=== PATIENT | female | born 1940 | race Caucasian/White ===

== ENCOUNTER → 2019-12-21 14:29 | Outpatient (CLI) | payer MEDICARE, OTHER, SELFPAY ==
--- NOTE | ~2019-12-21 | XR_ITS ---
XR chest 2V DATE: 12/21/2019 15:09 INDICATION: Cough TECHNIQUE: PA and lateral views COMPARISON: 08/06/2014 PA and lateral views of chest FINDINGS: Normal heart size. No hilar or mediastinal enlargement. No pulmonary infiltrate or consolid ation, pleural effusion or pulmonary vascular congestion or pneumothorax. Diffuse osteopenia. There is scoliosis and degenerative change of the thoracolumbar spine. There are prominent osteoarthritic changes at the glenohumeral joints. IMPRESSION: No active cardiopulmonary disease Reviewed, dictated and finalized at location B.
== END ==
PROVIDERS: PCP Family Medicine; Visit Provider Family Medicine
DX: R05 Cough (principal)
CPT/HCPCS: 71046

== ENCOUNTER 2019-12-22 11:09 | Outpatient (NON) | payer MEDICARE, OTHER, SELFPAY ==
[2019-12-23 00:01] LABS: SARS-CoV-2 RNA PCR Negative
== END 2019-12-22 11:10 ==
PROVIDERS: Visit Provider Nurse Practitioner Adult Health
DX: R05 Cough (principal); Z20.828 Contact with and (suspected) exposure to other viral communicable diseases
CPT/HCPCS: 87635; C9803; U0003

== ENCOUNTER 2020-06-21 09:49 | Outpatient (CLI) | payer MEDICARE, OTHER, SELFPAY ==
--- NOTE | ~2020-06-21 | MM_ITS ---
EXAMINATION: MM screening [facility] BI w luther HISTORY: Screening mammogram TECHNIQUE: Craniocaudal and mediolateral oblique 3-D tomosynthesis images were obtained and synthetic 2-D images were generated. CAD analysis was submitted and interpreted. COMPARISON: 06/21/2019, 06/04/2018, 06/01/2017 bilateral digital screening mammogram examinations BREAST PARENCHYMAL COMPOSITION: There are scattered areas of fibroglandular density. FINDINGS: Occasional bilateral benign calcifications. There is no evidence of suspicious mass, calcif ication, or architectural distortion to suggest malignancy in either breast. There has been no suspic ious interval change. IMPRESSION: 1. No mammographic evidence of malignancy. 2. Recommend routine screening mammography in one year. BI-RADS Category 1: Negative Reviewed, dictated and finalized at location A. WAY HOUSE COUNSELOR
== END 2020-06-21 09:50 | disposition home or self-care (01) ==
LOC: ANHIMG 09:52
PROVIDERS: PCP Nurse Practitioner Adult Health; Visit Provider Nurse Practitioner Adult Health
DX: Z12.31 Encounter for screening mammogram for malignant neoplasm of breast (principal)
CPT/HCPCS: 77063; 77067

== ENCOUNTER 2021-02-22 00:39 | Day surgery (SDC) | payer MEDICARE, OTHER, SELFPAY ==
[2021-02-14 10:14] VITALS: BMI 37.0
[2021-02-22 10:04] VITALS: BP 143/58; PULSE 61; RESP 16; TEMP 36.2; O2SAT 96
[2021-02-22] MEDS: LACTATED RINGERS 1,000 ML 150 ML IV CONT (10:07)
--- NOTE | 2021-02-22 10:20 | WPDANESEPPF ---
Anes - Initial Pre Proc Eval Procedure: Operation Date: 02/22/21 11:00 Proposed Procedures p Esophagogastroduodenoscopy - Gio Campbell MD Date/Time: 02/22/21 10:20 Surgeon: Gio Campbell MD Pre Op Diagnosis: epigastric pain, dyspepsia Patient Data Age: 81 Gender: F Height: 1.63 m Weight: 100.9 kg Last Vital Signs Temp 36.2 C L 02/22/21 10:04 Pulse 61 02/22/21 10:04 Resp 16 02/22/21 10:04 BP 143/58 H 02/22/21 10:04 Pulse Ox 96 02/22/21 10:04 Allergies Allergy/AdvReac Type Severity Reaction Status Date / Time levofloxacin [From Levaquin] Allergy Intermediate Unknown Verified 02/22/21 10:03 ADHESIVE TAPE Allergy Severe BLISTERS Uncoded 02/22/21 10:03 Home Medications Medication Instructions Recorded Confirmed Type aspirin 81 mg tablet,delayed 81 mg PO DAILY 04/27/20 02/22/21 History release diclofenac sodium 1 % topical gel 2 g TOPICAL QID PRN 04/27/20 02/22/21 History lisinopril 20 mg tablet 20 mg PO DAILY 04/27/20 02/22/21 History calcitriol 0.25 mcg capsule 0.25 mcg PO DAILY 02/07/21 02/22/21 History hydrochlorothiazide 12.5 mg tablet 12.5 mg PO DAILY 02/07/21 02/22/21 History levothyroxine 100 mcg tablet 100 mcg PO DAILY 02/07/21 02/22/21 History meloxicam 15 mg tablet 15 mg PO DAILY 02/07/21 02/22/21 History rosuvastatin 5 mg tablet 5 mg PO DAILY 02/07/21 02/22/21 History biotin 1 mg PO DAILY 02/14/21 02/22/21 History elderberry fruit [Elderberry] 200 mg PO DAILY 02/14/21 02/22/21 History Patient hx anesthesia problems: none Family hx anesthesia problems: none PMFSH Past Medical History Medical History (Updated 02/22/21 @ 10:22 by Naseem Machado MD) Anemia CAD (coronary artery disease) HTN (hypertension) Hyperlipidemia Surgical History Surgical History (Updated 02/22/21 @ 10:22 by Naseem Machado MD) History of coronary artery stent placement Family History Family History Other Cerebrovascular accident Family history of arthritis Family history of malignant neoplasm Hypertension Social History Social History Smoking packs per day: 1 Smoking cigarettes per day: 20.0 Years smoked: 45 Smoking pack-years: 45.00 Smoking status: Former smoker Tobacco type: cigarettes Second hand tobacco smoke exposure: No Smoking end date: 06/03/79 Alcohol intake: never Substance use: never Substance use type: does not use Living arrangements: with family Spiritual care concerns: No Anes - Eval Final PreProcedure Day of Procedure 02/22/21 10:20 Patient weight: obese Heart: regular rate and rhythm Lungs: clear to auscultation and normal air movement Airway: Mallampati scale class II Neurological: alert and oriented Last oral intake: >/= 8 hours ASA classification: III Emergent: no Anesthetic plan: proceed Anesthesia type and monitoring: general GIVS Informed Consent: The patient's anesthetic plan and its attendant risks and benefits were discussed with the patient/family/POA. Questions were solicited and answers provided to the satisfaction of the patient/family/POA.
--- NOTE | 2021-02-22 10:31 | PM.HPGS ---
History of Present Illness History of Present Illness Consent: Risks, benefits, and alternatives have been discussed and questions answered. Patient agrees to proceed with procedure. Chief complaint: epigastric pain, dyspepsia Narrative: Gunjan Diaz is a 81 year old female With troubled by a great deal of belching and chest tightness. She has tried taking antacids which gave her temporary relief Review of Systems Review of Systems: All systems reviewed & are unremarkable except as noted in HPI and below PMFSH Past Medical History Medical History Anemia CAD (coronary artery disease) HTN (hypertension) Hyperlipidemia Surgical History Surgical History History of coronary artery stent placement Family History Family History Other Cerebrovascular accident Family history of arthritis Family history of malignant neoplasm Hypertension Social History Social History Smoking packs per day: 1 Smoking cigarettes per day: 20.0 Years smoked: 45 Smoking pack-years: 45.00 Smoking status: Former smoker Tobacco type: cigarettes Second hand tobacco smoke exposure: No Smoking end date: 06/03/79 Alcohol intake: never Substance use: never Substance use type: does not use Living arrangements: with family Spiritual care concerns: No Meds Home Medications and Allergies Home Medications Medication Instructions Recorded Confirmed Type aspirin 81 mg tablet,delayed 81 mg PO DAILY 04/27/20 02/22/21 History release diclofenac sodium 1 % topical gel 2 g TOPICAL QID PRN 04/27/20 02/22/21 History lisinopril 20 mg tablet 20 mg PO DAILY 04/27/20 02/22/21 History calcitriol 0.25 mcg capsule 0.25 mcg PO DAILY 02/07/21 02/22/21 History hydrochlorothiazide 12.5 mg tablet 12.5 mg PO DAILY 02/07/21 02/22/21 History levothyroxine 100 mcg tablet 100 mcg PO DAILY 02/07/21 02/22/21 History meloxicam 15 mg tablet 15 mg PO DAILY 02/07/21 02/22/21 History rosuvastatin 5 mg tablet 5 mg PO DAILY 02/07/21 02/22/21 History biotin 1 mg PO DAILY 02/14/21 02/22/21 History elderberry fruit [Elderberry] 200 mg PO DAILY 02/14/21 02/22/21 History Allergies Allergy/AdvReac Type Severity Reaction Status Date / Time levofloxacin [From Levaquin] Allergy Intermediate Unknown Verified 02/22/21 10:03 ADHESIVE TAPE Allergy Severe BLISTERS Uncoded 02/22/21 10:03 Vital Signs Vital Signs - 24 hr 02/22/21 10:04 Temperature 36.2 C L Pulse Rate 61 Respiratory Rate 16 Blood Pressure 143/58 H Pulse Oximetry 96 Exam Resp: Auscultation: clear to auscultation bilaterally Cardio: Rate: regular rate Rhythm: regular rhythm GI: GI Palp: Yes Soft to palpation and No Tenderness to palpation present (GI) Assessment and Plan Assessment and plan (1) GERD (gastroesophageal reflux disease): Code(s): K21.9 - Gastro-esophageal reflux disease without esophagitis Status: Acute Assessment and Plan: EGD with possible biopsy or dilatation or cautery.
[2021-02-22 10:50] VITALS: BP 132/68; PULSE 71; RESP 21; O2SAT 99
[2021-02-22 11:00] VITALS: BP 138/66; PULSE 65; RESP 21; O2SAT 95
[2021-02-22 11:10] VITALS: BP 136/58; PULSE 54; RESP 16; O2SAT 99
== END 2021-02-22 11:28 | disposition home or self-care (01) ==
PROVIDERS: PCP Nurse Practitioner Adult Health; Visit Provider Internal Medicine Gastroenterology
PROC: 0DJ08ZZ Inspection of Upper Intestinal Tract, Via Natural or Artificial Opening Endoscopic (ICD-10-PCS; CPT 43235; principal; 2021-02-22 11:00)
DX: K21.00 Gastro-esophageal reflux disease with esophagitis, without bleeding (principal); K22.10 Ulcer of esophagus without bleeding; I25.10 Atherosclerotic heart disease of native coronary artery without angina pectoris; I10 Essential (primary) hypertension; E78.5 Hyperlipidemia, unspecified; D64.9 Anemia, unspecified; Z95.5 Presence of coronary angioplasty implant and graft; Z79.82 Long term (current) use of aspirin; Z87.891 Personal history of nicotine dependence; E66.9 Obesity, unspecified; Z68.38 Body mass index [BMI] 38.0-38.9, adult
CPT/HCPCS: 43239; 87081; 88305; J2001; J2704; J7120

== ENCOUNTER 2021-06-06 06:48 | Outpatient (CLI) | payer MEDICARE, OTHER, SELFPAY ==
--- NOTE | ~2021-06-06 | XR_ITS ---
XR knee LT 2V DATE: 06/06/2021 07:57 INDICATION: Left knee pain TECHNIQUE: AP and lateral views COMPARISON: None FINDINGS: There is diffuse osteopenia. There is severe osteoarthritis at the lateral and patellofemoral compartments. No fracture or dislocation or joint effusion. No periosteal reaction or bone destruction. IMPRESSION: Diffuse osteopenia Severe patellofemoral and lateral compartment osteoarthritis Reviewed, dictated and finalized at location A. T HEMMER
--- NOTE | ~2021-06-06 | MR_ITS ---
EXAMINATION: MR cervical spine wo con DATE: 06/06/2021 07:55 INDICATION: Neck pain. TECHNIQUE: Magnetic resonance imaging (MRI) of the cervical spine was performed without intravenous c ontrast. Sequences included sagittal T2-weighted FSE, sagittal STIR FSE, sagittal T1-weighted FSE, ax ial MERGE, and axial T2-weighted FSE. COMPARISON: Cervical spine MRI 10/02/2009 FINDINGS: There is 3 degrees dextrocurvature of cervicothoracic spine. There is 2 mm retrolisthesis o f C5 on C6 and C6 on C7. There is mild chronic anterior wedging of T1 vertebral body. There is mildly decreased disc height at C3-C4 and severely decreased disc height at C5-C6 and C6-C7. The spinal cor d signal intensity is normal. The following disc levels are specifically discussed: C2-C3: There is a central extrusion. There is mild bilateral uncovertebral joint osteoarthritis. Ther e is mild right and severe left facet joint osteoarthritis. There is mild lateral neural foraminal st enosis. There is mild central canal stenosis. C3-C4: The disc is bulging. There is mild right and moderate left uncovertebral joint osteoarthritis. There is severe bilateral facet joint osteoarthritis. There is mild right and moderate left neural f oraminal stenosis. There is mild central canal stenosis with ventral indentation of the spinal cord. C4-C5: The disc is bulging. There is mild bilateral uncovertebral joint osteoarthritis. There is mild bilateral facet joint osteoarthritis. There is mild bilateral neural foraminal stenosis. There is mi ld central canal stenosis with ventral indentation of the spinal cord. C5-C6: The disc is bulging. There is severe bilateral uncovertebral joint osteoarthritis. There is mi ld right and moderate left facet joint osteoarthritis. There is moderate right and severe left neural foraminal stenosis. There is moderate central canal stenosis with ventral and dorsal indentation of the spinal cord. C6-C7: The disc is bulging. There is severe bilateral uncovertebral joint osteoarthritis. There is mo derate bilateral facet joint osteoarthritis. There is moderate bilateral neural foraminal stenosis. T here is moderate central canal stenosis with ventral and dorsal indentation of the spinal cord. C7-T1: The disc does not extend beyond the endplate margin. There is no uncovertebral joint osteoarth ritis. There is severe right and moderate left facet joint osteoarthritis. There is mild bilateral ne ural foraminal stenosis. There is no central canal stenosis. IMPRESSION: 1. Severe cervical spondylosis, worsened from 10/02/2009. Reviewed, dictated and finalized at location A. N ANATOMY TEACHER
--- NOTE | ~2021-06-06 | XR_ITS ---
XR knee RT 2V DATE: 06/06/2021 07:57 INDICATION: Right knee pain TECHNIQUE: AP and lateral views COMPARISON: 01/23/2012 right knee FINDINGS: There is diffuse osteopenia. There is severe osteoarthritis including joint space narrowin g and spurring at the lateral and patellofemoral compartments. No fracture or dislocation, periosteal reaction or bone destruction. No joint effusion. There is chondrocalcinosis. IMPRESSION: Diffuse osteopenia Prominent osteoarthritis at lateral and patellofemoral compartments Chondrocalcinosis Reviewed, dictated and finalized at location A. TS SOLUTIONS CONSULTANT
== END 2021-06-06 06:49 | disposition home or self-care (01) ==
LOC: ANHIMG 06:55
PROVIDERS: PCP Nurse Practitioner Adult Health; Visit Provider Nurse Practitioner Family
DX: M47.892 Other spondylosis, cervical region (principal); M17.0 Bilateral primary osteoarthritis of knee
CPT/HCPCS: 72141; 73560

== ENCOUNTER 2021-07-13 09:26 | Outpatient (CLI) | payer MEDICARE, OTHER, SELFPAY ==
--- NOTE | ~2021-07-13 | MM_ITS ---
EXAMINATION: MM screening [facility] BI w luther HISTORY: Screening mammogram TECHNIQUE: Craniocaudal and mediolateral oblique 3-D tomosynthesis images were obtained and synthetic 2-D images were generated. CAD analysis was submitted and interpreted. COMPARISON: 06/21/2020, 06/11/2019, 06/04/2018 BREAST PARENCHYMAL COMPOSITION: There are scattered areas of fibroglandular density. FINDINGS: There is no evidence of suspicious mass, calcification, or architectural distortion to sugg est malignancy in either breast. There has been no suspicious interval change. IMPRESSION: 1. No mammographic evidence of malignancy. 2. Recommend routine screening mammography in one year. BI-RADS Category 1: Negative Reviewed, dictated and finalized at location A. F MEDICAL OFFICER
== END 2021-07-13 09:27 | disposition home or self-care (01) ==
LOC: ANHIMG 09:29
PROVIDERS: PCP Nurse Practitioner Adult Health; Visit Provider Nurse Practitioner Adult Health
DX: Z12.31 Encounter for screening mammogram for malignant neoplasm of breast (principal)
CPT/HCPCS: 77063; 77067

== ENCOUNTER 2021-08-21 01:10 | Day surgery (SDC) | payer MEDICARE, OTHER, SELFPAY ==
[2021-08-17 08:38] VITALS: BMI 38.7
--- NOTE | 2021-08-19 12:25 | WPDANESEPPF ---
Anes - Initial Pre Proc Eval Procedure: Operation Date: 08/21/21 11:00 Proposed Procedures p Esophagogastroduodenoscopy - Gio Campbell MD Date/Time: 08/19/21 12:25 Surgeon: Gio Campbell MD Pre Op Diagnosis: epigastric pain, dyspepsia Patient Data Age: 81 Gender: F Height: 1.63 m Weight: 102.2 kg Allergies Allergy/AdvReac Type Severity Reaction Status Date / Time levofloxacin [From Levaquin] Allergy Intermediate Unknown Verified 08/21/21 10:08 rofecoxib [From Vioxx] AdvReac Nausea and Verified 08/21/21 10:08 Vomiting ADHESIVE TAPE Allergy Severe BLISTERS Uncoded 08/21/21 10:08 Home Medications Medication Instructions Recorded Confirmed Type aspirin 81 mg tablet,delayed 81 mg PO DAILY 04/27/20 08/17/21 History release lisinopril 20 mg tablet 20 mg PO DAILY 04/27/20 08/17/21 History hydrochlorothiazide 12.5 mg tablet 12.5 mg PO DAILY 02/07/21 08/17/21 History levothyroxine 100 mcg tablet 100 mcg PO DAILY 02/07/21 08/17/21 History meloxicam 15 mg tablet 15 mg PO DAILY 02/07/21 08/17/21 History rosuvastatin 5 mg tablet 5 mg PO DAILY 02/07/21 08/17/21 History biotin 1 mg PO DAILY 02/14/21 08/17/21 History elderberry fruit 200 mg PO DAILY 02/14/21 08/17/21 History pantoprazole 40 mg PO DAILY 30 Days #30 tablet 02/22/21 08/17/21 Rx tramadol 40 mg PO PRN 08/17/21 History pantoprazole 40 mg PO QAM #30 tablet 08/21/21 Rx Patient hx anesthesia problems: none Family hx anesthesia problems: none Results Review: All pre-operative results and documents have been reviewed as part of the pre-operative evaluation. [facility] Past Medical History Medical History Anemia CAD (coronary artery disease) CKD (chronic kidney disease) History of heart attack 2009 HTN (hypertension) Hyperlipidemia Surgical History Surgical History History of coronary artery stent placement Family History Family History Other Cerebrovascular accident Family history of arthritis Family history of malignant neoplasm Hypertension Social History Social History Smoking packs per day: 1 Smoking cigarettes per day: 20.0 Years smoked: 45 Smoking pack-years: 45.00 Smoking status: Former smoker Tobacco type: cigarettes Second hand tobacco smoke exposure: No Smoking end date: 06/03/79 Alcohol intake: never Substance use: never Substance use type: does not use Living arrangements: with family Spiritual care concerns: No Anes - Eval Final PreProcedure Day of Procedure 08/19/21 12:25 Patient weight: obese Heart: regular rate and rhythm Lungs: clear to auscultation and normal air movement Airway: Mallampati scale class II Neurological: alert and oriented Last oral intake: >/= 8 hours ASA classification: III Emergent: no Anesthetic plan: proceed Anesthesia type and monitoring: general GIVS and standard monitoring Results Review: All pre-operative results and documents have been reviewed as part of the pre-operative evaluation. Informed Consent: The patient's anesthetic plan and its attendant risks and benefits were discussed with the patient/family/POA. Questions were solicited and answers provided to the satisfaction of the patient/family/POA.
--- NOTE | 2021-08-20 10:32 | WPDGICN ---
Assessment and Plan Assessment and plan (1) GERD (gastroesophageal reflux disease): Code(s): K21.9 - Gastro-esophageal reflux disease without esophagitis Status: Acute Assessment and Plan: EGD with possible biopsy or dilatation or cautery. (2) Abdominal bloating: Code(s): R14.0 - Abdominal distension (gaseous) Status: Acute Assessment and Plan: Along with bloating, she has excessive belching, often a deep large belch. We discussed aerophagia and how that is the etiology of belching. She does not believe that she eats fast or talk much about eating. We discussed other measures to avoid air swallowing such is not using a straw, avoiding carbonated beverages, not chewing gum GI Consult Note Consult date/time: 08/20/21 10:32 HPI: Gunjan Diaz is a 81 year old female who has suffered from severe reflux symptoms--chest tightness, belching. She was foundto have severe esophagitis last fall. She has been taking Pantoprazole daily. she states she still has excessive belching and a very tight bloated feeling when she gets distended with air. She also has excessive flatulence. She does not use a CPAP machine. She does not use straws he does not drink much in the way of carbonated beverages. Review of Systems Review of Systems: All systems reviewed & are unremarkable except as noted in HPI and below PMFSH Past Medical History Medical History Anemia CAD (coronary artery disease) CKD (chronic kidney disease) History of heart attack 2008 HTN (hypertension) Hyperlipidemia Surgical History Surgical History History of coronary artery stent placement Family History Family History Other Cerebrovascular accident Family history of arthritis Family history of malignant neoplasm Hypertension Social History Social History Smoking packs per day: 1 Smoking cigarettes per day: 20.0 Years smoked: 45 Smoking pack-years: 45.00 Smoking status: Former smoker Tobacco type: cigarettes Second hand tobacco smoke exposure: No Smoking end date: 06/03/79 Alcohol intake: never Substance use: never Substance use type: does not use Living arrangements: with family Spiritual care concerns: No Meds Home Medications and Allergies Home Medications Medication Instructions Recorded Confirmed Type aspirin 81 mg tablet,delayed 81 mg PO DAILY 04/27/20 08/17/21 History release lisinopril 20 mg tablet 20 mg PO DAILY 04/27/20 08/17/21 History hydrochlorothiazide 12.5 mg tablet 12.5 mg PO DAILY 02/07/21 08/17/21 History levothyroxine 100 mcg tablet 100 mcg PO DAILY 02/07/21 08/17/21 History meloxicam 15 mg tablet 15 mg PO DAILY 02/07/21 08/17/21 History rosuvastatin 5 mg tablet 5 mg PO DAILY 02/07/21 08/17/21 History biotin 1 mg PO DAILY 02/14/21 08/17/21 History elderberry fruit 200 mg PO DAILY 02/14/21 08/17/21 History pantoprazole 40 mg PO DAILY 30 Days #30 tablet 02/22/21 08/17/21 Rx tramadol 40 mg PO PRN 08/17/21 History Allergies Allergy/AdvReac Type Severity Reaction Status Date / Time levofloxacin [From Levaquin] Allergy Intermediate Unknown Verified 08/21/21 10:08 rofecoxib [From Vioxx] AdvReac Nausea and Verified 08/21/21 10:08 Vomiting ADHESIVE TAPE Allergy Severe BLISTERS Uncoded 08/21/21 10:08 Exam Const: General: alert Orientation/consciousness: patient oriented x3 Resp: Auscultation: clear to auscultation bilaterally Cardio: Rhythm: regular rhythm GI: GI Palp: Yes Soft to palpation and No Tenderness to palpation present (GI) Neuro: General: patient oriented x3
[2021-08-21 10:09] VITALS: BP 180/65; PULSE 65; RESP 18; TEMP 36.1; O2SAT 97
[2021-08-21] MEDS: LACTATED RINGERS 1,000 ML 150 ML IV CONT (10:19)
[2021-08-21 11:23] VITALS: BP 145/80; PULSE 57; RESP 18; O2SAT 98
[2021-08-21 11:33] VITALS: BP 160/77; PULSE 57; RESP 18; O2SAT 99
[2021-08-21 11:43] VITALS: BP 162/88; PULSE 53; RESP 18; O2SAT 100
== END 2021-08-21 12:04 | disposition home or self-care (01) ==
PROVIDERS: PCP Nurse Practitioner Adult Health; Visit Provider Internal Medicine Gastroenterology
PROC: 0DJ08ZZ Inspection of Upper Intestinal Tract, Via Natural or Artificial Opening Endoscopic (ICD-10-PCS; CPT 43235; principal; 2021-08-21 11:00)
DX: K21.9 Gastro-esophageal reflux disease without esophagitis (principal); K44.9 Diaphragmatic hernia without obstruction or gangrene; R14.0 Abdominal distension (gaseous); I12.9 Hypertensive chronic kidney disease with stage 1 through stage 4 chronic kidney disease, or unspecified chronic kidney disease; N18.9 Chronic kidney disease, unspecified; I25.10 Atherosclerotic heart disease of native coronary artery without angina pectoris; I25.2 Old myocardial infarction; E78.5 Hyperlipidemia, unspecified; D64.9 Anemia, unspecified; Z95.5 Presence of coronary angioplasty implant and graft; Z87.891 Personal history of nicotine dependence; Z79.82 Long term (current) use of aspirin; E66.9 Obesity, unspecified; Z68.41 Body mass index [BMI] 40.0-44.9, adult
CPT/HCPCS: 43235; J2704; J7120

== ENCOUNTER 2021-11-01 08:29 | Outpatient (CLI) | payer MEDICARE, OTHER, SELFPAY ==
--- NOTE | ~2021-11-01 | MR_ITS ---
EXAMINATION: MR lumbar spine wo con DATE: 11/01/2021 09:23 INDICATION: Low back pain. TECHNIQUE: Magnetic resonance imaging (MRI) of the lumbar spine was performed without intravenous con trast. Sequences included sagittal T2-weighted FSE, sagittal T2-weighted FS FSE, sagittal T1-weighted FSE, and axial T2-weighted FSE. COMPARISON: Lumbar spine MRI 07/30/2015 FINDINGS: There is 13 degrees dextroscoliosis of lumbar spine. There is a chronic compression fractur e of L2 with 1/2 loss of height centrally. There is severely decreased disc height at T10-T11, T11-T1 2, and T12-L1, mildly decreased disc height at L1-L2 and L2-L3, and severely decreased disc height fr om L3-L4 through L5-S1 with endplate remodeling. There is ligamentum flavum hypertrophy at the disc l evels from T10-T11 through L4-L5. The distal spinal cord signal intensity is normal. The conus medull cleve is at L1. The following disc levels are specifically discussed: T12-L1: The disc is bulging with superimposed right central extrusion. There is severe right and mode rate left facet joint osteoarthritis. There is moderate bilateral neural foraminal stenosis. There is mild central canal stenosis. L1-L2: The disc is bulging. There is severe bilateral facet joint osteoarthritis. There is mild right and moderate left neural foraminal stenosis. There is mild central canal stenosis. L2-L3: The disc is bulging. There is severe bilateral facet joint osteoarthritis. There is mild right and moderate left neural foraminal stenosis. There is moderate central canal stenosis. L3-L4: The disc is bulging. There is severe bilateral facet joint osteoarthritis. There is mild bilat eral neural foraminal stenosis. There is moderate central canal stenosis. L4-L5: The disc is bulging with superimposed right central extrusion. There is severe right and moder ate left facet joint osteoarthritis. There is moderate bilateral neural foraminal stenosis. There is mild central canal stenosis. There is moderate stenosis of right lateral recess. L5-S1: The disc is bulging and has an annular fissure. There is moderate bilateral facet joint osteoa rthritis. There is mild bilateral neural foraminal stenosis. There is mild central canal stenosis. IMPRESSION: 1. Severe lumbar spondylosis, stable from 07/30/2016. 2. Lumbar dextroscoliosis. Reviewed, dictated and finalized at location A.
== END 2021-11-01 08:30 | disposition home or self-care (01) ==
LOC: ANHIMG 08:31
PROVIDERS: PCP Nurse Practitioner Adult Health; Visit Provider Nurse Practitioner Family
DX: M47.896 Other spondylosis, lumbar region (principal)
CPT/HCPCS: 72148

== ENCOUNTER 2022-02-13 09:25 | Outpatient (CLI) | payer MEDICARE, OTHER, SELFPAY ==
--- NOTE | ~2022-02-13 | US_ITS ---
EXAMINATION: US abdomen complete DATE: 02/13/2022 10:43 INDICATION: Epigastric pain TECHNIQUE: Multiple grayscale and Doppler ultrasound images of the abdomen were obtained. COMPARISON: None available FINDINGS: The head and body of the pancreas are normal. The pancreatic tail is obscured by bowel gas. The liver is normal with normal echogenicity and echotexture. No surface nodularity. Normal hepatope marquez flow in the main portal vein. The gallbladder is normal with no abnormal wall thickening, pericho lecystic fluid or stones. The normal common bile duct measures 5 mm. There was no sonographic Beck sign. The visualized portions of the aorta and inferior vena cava are normal. The right kidney measures 9.5 x 4.2 x 5.3 cm. The left kidney measures 10.4 x 5.1 x 5.6 cm. The kidne ys demonstrate normal parenchymal echogenicity. There is no hydronephrosis. The spleen is normal in a ppearance and measures 11.7 cm. IMPRESSION: 1. No sonographic correlate for the patient's symptoms. Reviewed, dictated and finalized at location B.
--- NOTE | ~2022-02-13 | MR_ITS ---
EXAMINATION: MR thoracic spine wo con DATE: 02/13/2022 10:06 INDICATION: Back pain. TECHNIQUE: Magnetic resonance imaging (MRI) of the thoracic spine was performed without intravenous c ontrast. Sagittal localizer T1-weighted FSE of the cervical spine was obtained. Thoracic spine sequen juan included sagittal T2-weighted FSE, sagittal T1-weighted FSE, sagittal T2-weighted FS FSE, and axi al T2-weighted FSE. COMPARISON: Thoracic spine MRI 05/11/2016 FINDINGS: There is 19 degrees levoscoliosis of thoracolumbar spine. There is mild chronic anterior we dging of T4, T6, T10, T11, and T12 vertebral bodies. There is severely decreased disc height at all l evels, severe from T3-T4 through T6-T7 and from T9-T10 through T12-L1. There is multilevel facet join t osteoarthritis, severe at many levels. There is mild bilateral neural foraminal stenosis at many le vels. On the right, there is severe neural foraminal stenosis at T10-T11 and moderate neural foramina l stenosis at T1-T2, T4-T5, and T12-L1. On the left, there is severe neural foraminal stenosis at T1- T2 and moderate neural foraminal stenosis at T4-T5 and T12-L1. The discs are bulging at most levels. There are superimposed extrusions at multiple levels. There is mild central canal stenosis from T1-T2 through T9-T10 with ventral indentation of the spinal cord at T2-T3, T5-T6, T9-T10. At T10-T11, ther e is moderate central canal stenosis with ventral and dorsal indentation of the spinal cord. There is mild central canal stenosis at T11-T12 and T12-L1. IMPRESSION: 1. Severe thoracic spondylosis with interval worsening at T10-T11. Reviewed, dictated and finalized at location A.
== END 2022-02-13 09:26 | disposition home or self-care (01) ==
PROVIDERS: PCP Nurse Practitioner Adult Health; Referring Provider Internal Medicine Gastroenterology; Visit Provider Nurse Practitioner Family
DX: R10.13 Epigastric pain (principal); M54.6 Pain in thoracic spine; M47.894 Other spondylosis, thoracic region
CPT/HCPCS: 72146; 76700

== ENCOUNTER 2022-06-15 01:35 | Day surgery (SDC) | payer MEDICARE, OTHER, SELFPAY ==
[2022-05-30 13:55] VITALS: BMI 39.7
--- NOTE | 2022-06-14 13:51 | WPDANESEPPF ---
Anes - Initial Pre Proc Eval Procedure: Operation Date: 06/15/22 11:00 Proposed Procedures p Screening Colonoscopy - Gio Campbell MD Date/Time: 06/14/22 13:51 Surgeon: Gio Campbell MD Pre Op Diagnosis: family hx colon ca Patient Data Age: 82 Gender: F Height: 1.63 m Weight: 105 kg Allergies Allergy/AdvReac Type Severity Reaction Status Date / Time levofloxacin [From Levaquin] Allergy Intermediate Unknown Verified 06/15/22 09:44 rofecoxib [From Vioxx] AdvReac Nausea and Verified 06/15/22 09:44 Vomiting ADHESIVE TAPE Allergy Severe BLISTERS Uncoded 06/15/22 09:44 other AdvReac Other Uncoded 06/15/22 09:44 Home Medications Medication Instructions Recorded Confirmed Type aspirin 81 mg tablet,delayed 81 mg PO DAILY 04/27/20 06/15/22 History release (Adult Aspirin Regimen) lisinopril 20 mg tablet 20 mg PO DAILY 04/27/20 06/15/22 History hydrochlorothiazide 12.5 mg tablet 12.5 mg PO DAILY 02/07/21 06/15/22 History meloxicam 15 mg tablet 15 mg PO DAILY 02/07/21 06/15/22 History rosuvastatin 5 mg tablet 5 mg PO DAILY 02/07/21 06/15/22 History biotin 1 mg tablet 2,500 mg PO DAILY 02/14/21 06/15/22 History elderberry fruit 200 mg capsule 200 mg PO DAILY 02/14/21 06/15/22 History tramadol 40 mg PO DAILY PRN Pain (Scale 08/17/21 06/15/22 History Score 4-6) pantoprazole 40 mg tablet,delayed 40 mg PO QAM #90 tabs 05/22/22 06/15/22 Rx release levothyroxine 75 mcg tablet 75 mcg PO DAILY 05/30/22 06/15/22 History magnesium 500 mg tablet 15 mg PO DAILY 05/30/22 06/15/22 History Patient hx anesthesia problems: none Family hx anesthesia problems: none Results Review: All pre-operative results and documents have been reviewed as part of the pre-operative evaluation. [facility] Past Medical History Medical History (Updated 06/14/22 @ 14:01 by Gio Campbell MD) Anemia CAD (coronary artery disease) CKD (chronic kidney disease) History of heart attack 2008 HTN (hypertension) Hyperlipidemia Hypothyroidism Surgical History Surgical History (Updated 06/14/22 @ 13:51 by Puneet Flores DO) History of coronary artery stent placement History of hysterectomy Family History Family History Other Cerebrovascular accident Family history of arthritis Family history of malignant neoplasm Hypertension Social History Social History Smoking packs per day: 1 Smoking cigarettes per day: 20.0 Years smoked: 20 Smoking pack-years: 20.00 Smoking status: Former smoker Tobacco type: cigarettes Second hand tobacco smoke exposure: No Smoking end date: 06/03/79 Alcohol intake: never Substance use: never Substance use type: does not use Living arrangements: with family Spiritual care concerns: No Anes - Eval Final PreProcedure Day of Procedure 06/14/22 13:51 Patient weight: obese Heart: regular rate and rhythm Lungs: clear to auscultation Airway: Mallampati scale class II Neurological: alert and oriented Last oral intake: >/= 8 hours ASA classification: III Emergent: no Anesthetic plan: proceed Anesthesia type and monitoring: general GIVS and standard monitoring Results Review: All pre-operative results and documents have been reviewed as part of the pre-operative evaluation. Informed Consent: The patient's anesthetic plan and its attendant risks and benefits were discussed with the patient/family/POA. Questions were solicited and answers provided to the satisfaction of the patient/family/POA.
--- NOTE | 2022-06-14 14:01 | PM.HPGS ---
History of Present Illness History of Present Illness Consent: Risks, benefits, and alternatives have been discussed and questions answered. Patient agrees to proceed with procedure. Chief complaint: family hx colon ca Narrative: Gunjan Diaz is a 82 year old female Referred for colon cancer screening. She has a family history of colon cancer Review of Systems Review of Systems: All systems reviewed & are unremarkable except as noted in HPI and below PMFSH Past Medical History Medical History Anemia CAD (coronary artery disease) CKD (chronic kidney disease) History of heart attack 2009 HTN (hypertension) Hyperlipidemia Hypothyroidism Surgical History Surgical History History of coronary artery stent placement History of hysterectomy Family History Family History Other Cerebrovascular accident Family history of arthritis Family history of malignant neoplasm Hypertension Social History Social History Smoking packs per day: 1 Smoking cigarettes per day: 20.0 Years smoked: 20 Smoking pack-years: 20.00 Smoking status: Former smoker Tobacco type: cigarettes Second hand tobacco smoke exposure: No Smoking end date: 06/03/79 Alcohol intake: never Substance use: never Substance use type: does not use Living arrangements: with family Spiritual care concerns: No Meds Home Medications and Allergies Home Medications Medication Instructions Recorded Confirmed Type aspirin 81 mg tablet,delayed 81 mg PO DAILY 04/27/20 06/15/22 History release (Adult Aspirin Regimen) lisinopril 20 mg tablet 20 mg PO DAILY 04/27/20 06/15/22 History hydrochlorothiazide 12.5 mg tablet 12.5 mg PO DAILY 02/07/21 06/15/22 History meloxicam 15 mg tablet 15 mg PO DAILY 02/07/21 06/15/22 History rosuvastatin 5 mg tablet 5 mg PO DAILY 02/07/21 06/15/22 History biotin 1 mg tablet 2,500 mg PO DAILY 02/14/21 06/15/22 History elderberry fruit 200 mg capsule 200 mg PO DAILY 02/14/21 06/15/22 History tramadol 40 mg PO DAILY PRN Pain (Scale 08/17/21 06/15/22 History Score 4-6) pantoprazole 40 mg tablet,delayed 40 mg PO QAM #90 tabs 05/22/22 06/15/22 Rx release levothyroxine 75 mcg tablet 75 mcg PO DAILY 05/30/22 06/15/22 History magnesium 500 mg tablet 15 mg PO DAILY 05/30/22 06/15/22 History Allergies Allergy/AdvReac Type Severity Reaction Status Date / Time levofloxacin [From Levaquin] Allergy Intermediate Unknown Verified 06/15/22 09:44 rofecoxib [From Vioxx] AdvReac Nausea and Verified 06/15/22 09:44 Vomiting ADHESIVE TAPE Allergy Severe BLISTERS Uncoded 06/15/22 09:44 other AdvReac Other Uncoded 06/15/22 09:44 Exam Resp: Auscultation: clear to auscultation bilaterally Cardio: Rate: regular rate Rhythm: regular rhythm GI: GI Palp: Yes Soft to palpation and No Tenderness to palpation present (GI) Assessment and Plan Assessment and plan (1) Colon cancer screening: Code(s): Z12.11 - Encounter for screening for malignant neoplasm of colon Status: Acute Assessment and Plan: Colonoscopy with possible biopsy or polypectomy or cautery or injection of substances.
[2022-06-15 09:46] VITALS: BP 164/74; PULSE 73; RESP 18; TEMP 36.1; O2SAT 98
[2022-06-15] MEDS: LACTATED RINGERS 1,000 ML 150 ML IV CONT (09:58)
[2022-06-15 10:41] VITALS: BP 133/71; PULSE 67; RESP 19; O2SAT 95
[2022-06-15 10:51] VITALS: BP 128/56; PULSE 56; RESP 17; O2SAT 94
[2022-06-15 11:01] VITALS: BP 133/65; PULSE 52; RESP 24; O2SAT 96
== END 2022-06-15 11:10 | disposition home or self-care (01) ==
PROVIDERS: PCP Nurse Practitioner Family; Visit Provider Internal Medicine Gastroenterology
PROC: 0DJD8ZZ Inspection of Lower Intestinal Tract, Via Natural or Artificial Opening Endoscopic (ICD-10-PCS; CPT 45378; principal; 2022-06-15 11:00)
DX: Z12.11 Encounter for screening for malignant neoplasm of colon (principal); K57.30 Diverticulosis of large intestine without perforation or abscess without bleeding; Z80.0 Family history of malignant neoplasm of digestive organs; I12.9 Hypertensive chronic kidney disease with stage 1 through stage 4 chronic kidney disease, or unspecified chronic kidney disease; N18.9 Chronic kidney disease, unspecified; I25.10 Atherosclerotic heart disease of native coronary artery without angina pectoris; D64.9 Anemia, unspecified; I25.2 Old myocardial infarction; E78.5 Hyperlipidemia, unspecified; E03.9 Hypothyroidism, unspecified; Z95.5 Presence of coronary angioplasty implant and graft; Z87.891 Personal history of nicotine dependence; E66.9 Obesity, unspecified; Z68.38 Body mass index [BMI] 38.0-38.9, adult; Z79.82 Long term (current) use of aspirin
CPT/HCPCS: G0105; J2704; J7120

== ENCOUNTER 2022-08-06 09:35 | Outpatient (CLI) | payer MEDICARE, OTHER, SELFPAY ==
--- NOTE | ~2022-08-06 | MR_ITS ---
EXAMINATION: MRA neck wo con DATE: 08/06/2022 11:58 INDICATION: Syncope and collapse. TECHNIQUE: Magnetic resonance angiography (MRA) of the neck was performed without intravenous contras t. COMPARISON: Ultrasound 10/19/2008 FINDINGS: There is 0% stenosis of the proximal right internal carotid artery relative to normal distal artery l umen diameter (NASCET criteria). There is 0% stenosis of the proximal left internal carotid artery r elative to normal distal artery lumen diameter. The vertebral arteries are codominant. IMPRESSION: 1. 0% stenosis of the proximal internal carotid arteries relative to normal distal artery lumen diame ters (NASCET criteria). Reviewed, dictated and finalized at location A. [facility] IMPRESSION: 1. 0% stenosis of the proximal internal carotid arteries relative to normal dis marquez artery lumen diameters (NASCET criteria).
--- NOTE | ~2022-08-06 | MR_ITS ---
EXAMINATION: MR brain/brain stem wo/w con DATE: 08/06/2022 11:59 INDICATION: Syncope and collapse. TECHNIQUE: Magnetic resonance imaging (MRI) of the brain and brainstem was performed without and with 20 mL MultiHance intravenous contrast. COMPARISON: None. FINDINGS: There is no intracranial hemorrhage, acute infarction, or abnormal intracranial mass lesion . There are scattered areas of nonspecific increased T2-weighted signal intensity in the cerebral whi te matter. The ventricles are normal in size. There is mild mucosal thickening in sphenoid sinus. The re are likely changes of ocular lens replacement surgeries. The mastoid air cells are normal. IMPRESSION: 1. Mild nonspecific cerebral white matter disease, which likely represents chronic small vessel ische zaid disease. Reviewed, dictated and finalized at location A. TECHNOLOGIST IMPRESSION: 1. Mild nonspecific cerebral white matter disease, which likely represents forensic anthropologist mounika small vessel ischemic disease.
--- NOTE | ~2022-08-06 | MR_ITS ---
EXAMINATION: MRA brain wo con DATE: 08/06/2022 11:58 INDICATION: Syncope and collapse. TECHNIQUE: Magnetic resonance angiography (MRA) of the brain was performed without intravenous contra st with T1-weighted SPGR by the 3D [id number] technique. Maximum intensity projection 3D-reconstr uctions were obtained. COMPARISON: Brain MRI 08/06/2022 FINDINGS: The vertebral arteries are codominant. There is no significant stenosis of basilar artery or the post erior cerebral arteries. There is no significant stenosis of the intracranial internal carotid arteri es or anterior or middle cerebral arteries. Anterior communicating artery is normal. Posterior commun icating arteries are not identified. There is no aneurysm. IMPRESSION: 1. Normal head MRA. Reviewed, dictated and finalized at location A. INTEGRATION DEVELOPER IMPRESSION: 1. Normal head MRA.
== END 2022-08-06 09:36 | disposition home or self-care (01) ==
PROVIDERS: PCP Nurse Practitioner Family; Visit Provider Nurse Practitioner Family
DX: R55 Syncope and collapse (principal); R93.0 Abnormal findings on diagnostic imaging of skull and head, not elsewhere classified
CPT/HCPCS: 70544; 70547; 70553; A9577

== ENCOUNTER 2022-08-14 09:10 | Outpatient (CLI) | payer MEDICARE, OTHER, SELFPAY ==
--- NOTE | ~2022-08-14 | MM_ITS ---
EXAMINATION: MM screening mandie BI w luther HISTORY: Screening mammogram TECHNIQUE: Craniocaudal and mediolateral oblique 3-D tomosynthesis images were obtained and synthetic 2-D images were generated. CAD analysis was submitted and interpreted. COMPARISON: 07/13/2021, 06/21/2020, 06/11/2019 bilateral screening mammogram examinations BREAST PARENCHYMAL COMPOSITION: There are scattered areas of fibroglandular density. FINDINGS: Occasional bilateral benign calcifications. There is no evidence of suspicious mass, calcif ication, or architectural distortion to suggest malignancy in either breast. There has been no suspic ious interval change. IMPRESSION: 1. No mammographic evidence of malignancy. 2. Recommend routine screening mammography in one year. BI-RADS Category 2: Benign finding(s). Reviewed, dictated and finalized at location A.
--- NOTE | ~2022-08-14 | DEXA_ITS ---
Bone Density Report Name: JOSE LEWIS Age: 82 Sex: Female Ethnicity: White Date of : 1940 Indication: osteopenia; height loss; postmenopausal Referring Provider: CHRISTIANO, SHELBIE Chowdhury Study: Bone densitometry was performed. Exam Date: August 14, 2022 Accession number: [id number] Bone Density: Region BMD T-score Z-score Classification AP Spine(L1-L4) 1.197 1.4 4.1 Normal Femoral Neck (Left) 0.766 -0.7 1.6 Normal Total Hip (Left) 0.793 -1.2 0.9 Osteopenia Femoral Neck (Right) 0.706 -1.3 1.0 Osteopenia Total Hip (Right) 0.733 -1.7 0.4 Osteopenia Total Hip Mean 0.763 -1.5 0.7 Osteopenia World Health Organization criteria for BMD impression classify patients as: Normal (T-score at or above -1.0), Osteopenia (T-score between -1.0 and -2.5), or Osteoporosis (T-score at or below -2.5). 10-year Fracture Risk(1): Major Osteoporotic Fracture 11% Hip Fracture 2.3% Reported Risk Factors: [place] (), Neck BMD=0.706, BMI=42.3 (1) FRAX(R) Version 3.08. Fracture probability calculated for an untreated patient. Fracture probability may be lower if the patient has received treatment. Previous Exams: Region Exam Age BMD T-score BMD Change BMD Change Date g/cm2 vs Baseline vs Previous AP Spine (L1-L4) 08/14/2022 82 1.197 1.4 0.076 (6.8%)* 0.076 (6.8%)* 02/23/2016 76 1.121 0.7 Total Hip(Left) 08/14/2022 82 0.793 -1.2 -0.045 (-5.4%) -0.045 (-5.4%) 02/23/2016 76 0.838 -0.9 Total Hip(Right) 08/14/2022 82 0.733 -1.7 -0.019 (-2.6%) -0.019 (-2.6%) 02/23/2016 76 0.753 -1.6 *Denotes significance at 95% confidence level, LSC for AP Spine = 0.022 g/cm2, LSC for Total Hip = 0.027 g/cm2 Clinical Information Provided by Patient: Patient maximum height was 67 No regular weight bearing exercise Drinks caffeinated beverages Onset of menses at age 11 Number of children 2 Impression: The patient has low bone mass, based on the Right Total Hip T-score. The patient has an estimated ten-year risk of hip fracture of 2.3% and an estimated ten-year risk of major fracture of 11%, based on the WHO FRAX algorithm. The BMD for the Total Hip(Left) decreased, changing by -5.4% since the last DXA exam. Discussion: BONE DENSITY IS LOW AT ONE OR MORE SKELETAL SITES. This patient's lowest T-score is low at one or more skeletal sites. It meets the World Health Organization's (WHO) criteria for ?low bone mass? (T-scor
== END 2022-08-14 09:11 | disposition home or self-care (01) ==
PROVIDERS: PCP Nurse Practitioner Family; Visit Provider Nurse Practitioner Family
DX: Z12.31 Encounter for screening mammogram for malignant neoplasm of breast (principal); Z78.0 Asymptomatic menopausal state; M85.852 Other specified disorders of bone density and structure, left thigh; M85.851 Other specified disorders of bone density and structure, right thigh
CPT/HCPCS: 77063; 77067; 77080

== ENCOUNTER 2023-09-05 13:07 | Outpatient (CLI) | payer MEDICARE, OTHER, SELFPAY ==
--- NOTE | ~2023-09-05 | MM_ITS ---
EXAMINATION: MM screening mandie BI w luther HISTORY: Screening TECHNIQUE: Craniocaudal and mediolateral oblique 3-D tomosynthesis images were obtained and synthetic 2-D images were generated. CAD analysis was submitted and interpreted. COMPARISON: Comparison to multiple prior studies sequentially, with oldest reviewed study dated 05/05. BREAST PARENCHYMAL COMPOSITION: Not dense: There are scattered areas of fibroglandular density. FINDINGS: There is no evidence of suspicious mass, calcification, or architectural distortion to sugg est malignancy in either breast. There has been no suspicious interval change. IMPRESSION: 1. No mammographic evidence of malignancy. 2. Recommend routine screening mammography in one year. BI-RADS Category 1: Negative Reviewed, dictated and finalized at location A.
== END 2023-09-05 13:08 | disposition home or self-care (01) ==
PROVIDERS: PCP Nurse Practitioner Adult Health; Visit Provider Nurse Practitioner Adult Health
DX: Z12.31 Encounter for screening mammogram for malignant neoplasm of breast (principal)
CPT/HCPCS: 77063; 77067

== ENCOUNTER 2023-12-16 10:17 | Outpatient (CLI) | payer MEDICARE, OTHER, SELFPAY ==
[2023-12-16 22:17] LABS: Alanine Aminotransferase 13 U/L (6-35); Albumin Level 4.4 g/dL (3.5-5.1); Alkaline Phosphatase 80 U/L (38-126); Anion Gap 6 mmol/L (4-12); Aspartate Amino Transferase 46 U/L (14-36); Bilirubin,Total 0.8 mg/dL (0.2-1.3); Blood Urea Nitrogen 28 mg/dL (7-17); Calcium 9.6 mg/dL (8.4-10.2); Carbon Dioxide 28 mmol/L (22-30); Chloride 103 mmol/L (98-107); Cholesterol 167 mg/dL (0-200); Estimated Glomerular Filt Rate 53; Glucose 92 mg/dL (65-110); HDL Direct 58 mg/dL; Potassium 4.2 mmol/L (3.4-5.0); Sodium 137 mmol/L (137-145); Triglycerides 117 mg/dL (<150)
[2023-12-16 22:28] LABS: LDL Cholesterol Direct 82 mg/dL
== END 2023-12-16 10:18 | disposition home or self-care (01) ==
LOC: ANHBWCLAB 10:19
PROVIDERS: PCP Nurse Practitioner Adult Health; Visit Provider Nurse Practitioner Adult Health
DX: I10 Essential (primary) hypertension (principal)
CPT/HCPCS: 36415; 80053; 80061; 84443

== ENCOUNTER 2024-02-04 17:16 | Inpatient (IN) | payer MEDICARE, OTHER, SELFPAY ==
--- NOTE | ~2024-02-04 | CT_ITS ---
EXAMINATION: CT abdomen pelvis w con DATE: 02/04/2024 20:55 INDICATION: Abdominal pain. Gastrointestinal hemorrhage. TECHNIQUE: Computed tomography (CT) of the abdomen and pelvis was performed with 100 mL Omnipaque 350 intravenous contrast. Automated exposure control and iterative reconstruction technique were employe d. The dose-length product was 1464.11 mGy-cm. COMPARISON: CT abdomen 07/23/2007 FINDINGS: The visualized portions of lung bases demonstrate mild atelectasis. A calcified right lung nodule is consistent with old granulomatous disease. No pleural effusion. The heart size is normal. T here are coronary artery calcifications. No pericardial effusion. There is a small sliding hiatal her elo. Calcifications in the liver and spleen are consistent with old granulomatous disease. The gallbl adder is distended. The pancreas and adrenal glands are normal. There is cortical thinning of the kid neys. There are cysts in right kidney measuring up to 6 mm. There is calcified atherosclerosis of the aorta and many of the other arteries. There is no significant stenosis of celiac axis, superior mese nteric artery, or inferior mesenteric artery. There is scattered diverticula in the colon. There is w all thickening of the descending and sigmoid colon with surrounding fat stranding. The appendix is no t visualized. There are no dilated loops of bowel. There are diverticula of the proximal duodenum. Th ere are no pathologically enlarged lymph nodes. There is no free intraperitoneal fluid. There is jamey re lumbar spondylosis. There is mild chronic anterior wedging of multiple vertebral bodies. Thoracolu mbar levoscoliosis is noted. IMPRESSION: 1. Colitis involving descending and sigmoid colon. Reviewed, dictated and finalized at location A.
[2024-02-04 17:24] VITALS: BP 146/118; PULSE 108; RESP 14; O2SAT 96
[2024-02-04 17:53] LABS: Basophils Percent Auto 0.2 % (0.2-1.2); Eosinophils Absolute Auto 0.1 K/mm3 (0-0.3); Eosinophils Percent Auto 0.5 % (0-4.4); Hematocrit 46.3 % (37.0-47.0); Hemoglobin 15.1 g/dL (12.0-15.0); Immature Granulocyte Absolute 0.09 K/mm3 (0.00-0.031); Immature Granulocyte Percent A 0.7 % (0-0.5); Lymphocytes Absolute Auto 1.31 K/mm3 (0.9-3.2); Lymphocytes Percent Auto 9.7 % (18.3-44.2); Mean Corpuscular HGB Conc 32.6 g/dl (32-36); Mean Corpuscular Hemoglobin 29.3 pg (26-34); Mean Corpuscular Volume 89.7 fl (80-100); Mean Platelet Volume 10.1 fl (7.4-10.4); Monocytes Absolute Auto 0.9 K/mm3 (0.1-0.6); Monocytes Percent Auto 6.4 % (2.6-8.5); Neutrophils Absolute Auto 11.1 K/mm3 (1.3-6.7); Neutrophils Percent Auto 82.5 % (45.5-73.1); Platelet Count Result 244 k/mm3 (150-375); Red Blood Count 5.16 M/mm3 (4.2-5.4); Red Cell Distribution Width 16.2 % (11.5-14.5); White Blood Count 13.4 K/mm3 (4.5-10.0)
[2024-02-04 18:05] LABS: Alanine Aminotransferase 13 U/L (6-35); Albumin Level 4.3 g/dL (3.5-5.1); Alkaline Phosphatase 104 U/L (38-126); Anion Gap 14 mmol/L (4-12); Aspartate Amino Transferase 19 U/L (14-36); Bilirubin,Total 0.7 mg/dL (0.2-1.3); Blood Urea Nitrogen 43 mg/dL (7-17); Calcium 9.5 mg/dL (8.4-10.2); Carbon Dioxide 19 mmol/L (22-30); Chloride 102 mmol/L (98-107); Estimated CRCL calculation 27 ml/min; Estimated Glomerular Filt Rate 31; Glucose 118 mg/dL (65-110); Potassium 4.2 mmol/L (3.4-5.0); Sodium 135 mmol/L (137-145)
[2024-02-04 18:16] VITALS: BP 134/56; PULSE 88; RESP 16; TEMP 36.5; O2SAT 99
[2024-02-04 18:17] VITALS: BP 134/56; PULSE 90; RESP 16; O2SAT 93
[2024-02-04 18:45] LABS: INR 1.2; Partial Thromboplastin Time 31.3 Seconds (22.3-36.8); Prothrombin Time 15.3 Seconds (11.1-14.7)
--- NOTE | 2024-02-04 19:01 | ED.GIBLEED ---
HPI - GI Bleed General Chief complaint: GI Bleed Stated complaint: blood in stool and clots in stool Time Seen by Provider: 02/04/24 17:49 Source: patient Mode of arrival: ambulatory Limitations: no limitations History of Present Illness HPI Narrative: This is a 83 year old female that presents to the ER for GI bleeding. Reports she has had several episodes of large amount of dark red and bright red blood per rectum. Reports she takes Eliquis for history of blood clots. Reports abdominal cramping. Denies fevers or vomiting. Related Data Home Medications Medication Instructions Recorded Confirmed aspirin 81 mg tablet,delayed 81 mg PO DAILY 04/27/20 01/22/24 release (Adult Aspirin Regimen) rosuvastatin 5 mg tablet 5 mg PO DAILY 02/07/21 01/22/24 Magnesium BYMOUTH 08/14/23 01/22/24 apixaban 5 mg tablet 5 mg PO BID 08/14/23 01/22/24 lisinopril 20 mg tablet 40 mg PO DAILY 08/14/23 01/22/24 Allergies Allergy/AdvReac Type Severity Reaction Status Date / Time levofloxacin [From Levaquin] Allergy Intermediate Unknown Verified 02/04/24 20:38 rofecoxib [From Vioxx] AdvReac Nausea and Verified 02/04/24 20:38 Vomiting ADHESIVE TAPE Allergy Severe Blister Uncoded 02/04/24 20:38 other AdvReac Other Uncoded 01/22/24 13:05 Review of Systems Review of Systems: CONSTITUTIONAL: Denies fever GASTROINTESTINAL: Reports abdominal pain. Denies nausea, vomiting, or diarrhea. All systems reviewed & are unremarkable except as noted in HPI and below PMFSH Past Medical History Medical History Anemia Arthritis CAD (coronary artery disease) CAD (coronary atherosclerotic disease) CKD (chronic kidney disease) Disorder of thyroid History of heart attack 2008 HTN (hypertension) Hyperlipidemia Hypothyroidism Myocardial infarction Surgical History Surgical History History of coronary artery stent placement History of hysterectomy Family History Family History Father Cancer Mother Hypertension Heart disease Cerebrovascular accident Grandparent Hypertension Heart disease Cerebrovascular accident Grandparent Cancer Cerebrovascular accident Other Family history of arthritis Family history of malignant neoplasm Social History Social History Smoking packs per day: 1 Smoking cigarettes per day: 20.0 Years smoked: 20 Smoking pack-years: 20.00 Smoking status: Former smoker Tobacco type: cigarettes Second hand tobacco smoke exposure: No Smoking end date: 06/03/79 Alcohol intake: never Substance use: never Substance use type: does not use Lack of Transportation: No Lack of Food: Never True Current Housing: I Have Housing Concerned About Future Housing: No Difficulty Paying Gas/Electric Bills: No Difficulty Paying for Meds: No Currently Unemployed: No Education: High School Diploma/GED Difficulty w/ Childcare or Family Care: No Living arrangements: with family Occupation/Education: retired Gender identity (if verbalized by the patient): Female Spiritual care concerns: No Agree to blood products: Yes Exam Narrative: GENERAL: Elderly, well-nourished, and in no acute distress. HEAD: Normocephalic, atraumatic. EYES: EOMI. CHEST: Clear to auscultation. No respiratory distress. No wheezes rales or rhonchi HEART: Regular rate and rhythm. No murmur heard. Normal peripheral pulses. ABDOMEN: Soft, nontender, nondistended, normal active bowel sounds. EXTREMITIES: Normal range of motion. No edema. SKIN: Warm, dry, no rash. NEURO: No focal deficits. Alert and oriented x3. PSYCH: Normal mood and affect Course Consultations Consultation #1: Spoke with GI who will consult. Date: 02/04/24 Consultation #2: Spoke with hospitalist a
[2024-02-04 19:22] VITALS: BP 116/74; PULSE 94; RESP 19; O2SAT 95
[2024-02-04] MEDS: SODIUM CHLORIDE 0.9% IV 500 ML 999 ML IV CONT (19:22)
[2024-02-04 21:56] VITALS: BP 125/54; PULSE 83; RESP 20; O2SAT 96
[2024-02-04] MEDS: PIPERACILLIN/TAZ 2.25G/NS 50ML 2.25 GM/50 ML BAG IVPB (21:57)
--- NOTE | 2024-02-04 22:01 | PM.IMHP ---
H&P: HPI History of Present Illness Date/Time: 02/04/24 22:01 Chief Complaint: Abdominal Pain Narrative: 85 y/o F presents here with abdominal pain with PMH of anemia, CAD, CKD, [place], hypertension, hyperlipidemia, and hypothyroidism. The patient presents here from home for further evaluation of abdominal pain. The patient reports onset of lower abdominal pain at 11:30 a.m. today. The patient describes the abdominal discomfort as cramping, nonradiating, intermittent, and no aggravating/alleviating factors. Shortly after abdominal pain/cramping began the patient passed a bowel movement that was accompanied dry bright red blood and diaphoresis. +Fatigue. Patient then had 5 episodes of blood per rectum that she described as dark small red clots without stool. 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 She denies previous history of GI bleed. No associated fever, chills, or body aches. Patient reports that she has been feeling under the weather for the past few days prior to symptom onset today. Initial VS at presentation: 97.7? F, HR 108, RR 14, 146/118, and 96% on RA. ED workup showed: WBC 13.4, hemoglobin 15.1, INR 1.2, creatinine 1.6 and GFR 31 (previously 1.0 and GFR 53 on 12/16/2023). CT of the abdomen/pelvis showed colitis involving the descending and sigmoid colon. Review of Systems Review of Systems: All systems reviewed & are unremarkable except as noted in HPI and below PMFSH Past Medical History Medical History Anemia Arthritis CAD (coronary artery disease) CAD (coronary atherosclerotic disease) CKD (chronic kidney disease) Disorder of thyroid GERD (gastroesophageal reflux disease) History of heart attack 2008 HTN (hypertension) Hyperlipidemia Hypothyroidism Myocardial infarction Surgical History Surgical History History of coronary artery stent placement History of hysterectomy Family History Family History Father Cancer Mother Hypertension Heart disease Cerebrovascular accident Grandparent Hypertension Heart disease Cerebrovascular accident Grandparent Cancer Cerebrovascular accident Other Family history of arthritis Family history of malignant neoplasm Social History Social History Smoking packs per day: 1 Smoking cigarettes per day: 20.0 Years smoked: 20 Smoking pack-years: 20.00 Smoking status: Former smoker Tobacco type: cigarettes Second hand tobacco smoke exposure: No Smoking end date: 06/03/79 Alcohol intake: never Substance use: never Substance use type: does not use Lack of Transportation: No Lack of Food: Never True Current Housing: I Have Housing Concerned About Future Housing: No Difficulty Paying Gas/Electric Bills: No Difficulty Paying for Meds: No Currently Unemployed: No Education: High School Diploma/GED Difficulty w/ Childcare or Family Care: No Living arrangements: with family Occupation/Education: retired Gender identity (if verbalized by the patient): Female Spiritual care concerns: No Agree to blood products: Yes Meds Home Medications and Allergies Home Medications Medication Instructions Recorded Confirmed Type aspirin 81 mg tablet,delayed 81 mg PO DAILY 04/27/20 02/04/24 History release (Adult Aspirin Regimen) rosuvastatin 5 mg tablet 5 mg PO DAILY 02/07/21 02/04/24 History Magnesium 400 mg BYMOUTH HS 08/14/23 02/04/24 History apixaban 5 mg tablet 5 mg PO BID 08/14/23 02/04/24 History calcitriol 0.25 mcg capsule 0.25 mcg PO DAILY #90 caps 08/14/23 02/04/24 Rx lisinopril 20 mg tablet 40 mg PO DAILY 08/14/23 02/04/24 History hydrochlorothiazide 25 mg tablet 25 mg PO DAILY #90 tabs 01/21/24 02/04/24 Rx tramadol 50 mg tablet 50
[2024-02-04 22:05] LABS: Hematocrit 44.2 % (37.0-47.0); Hemoglobin 14.5 g/dL (12.0-15.0)
[2024-02-04 22:18] LABS: Lactic Acid Reflex 0.9 mmol/L (0.7-2.0)
[2024-02-04] MEDS: SODIUM CHLORIDE 0.9% IV 1,000 ML 999 ML IV CONT (22:32)
--- NOTE | 2024-02-04 22:47 | PC.NURSE ---
Report called to ALY Coleman. All questions answered at this time.
[2024-02-05] MEDS: PIPERACILLIN/TAZ 2.25G/NS 50ML 2.25 GM/50 ML BAG IVPB ×4 (03:10→20:43)
[2024-02-05] MEDS: LEVOTHYROXINE SODIUM 75 MCG TABLET PO (05:47)
[2024-02-05] MEDS: SODIUM CHLORIDE 0.9% IV 1,000 ML 75 ML IV CONT (05:47)
[2024-02-05 05:57] VITALS: BP 124/52; PULSE 67; RESP 18; TEMP 37.1; O2SAT 96
[2024-02-05 06:44] LABS: Basophils Percent Auto 0.3 % (0.2-1.2); Eosinophils Absolute Auto 0.1 K/mm3 (0-0.3); Eosinophils Percent Auto 1.2 % (0-4.4); Hematocrit 41.5 % (37.0-47.0); Hemoglobin 13.2 g/dL (12.0-15.0); Immature Granulocyte Absolute 0.03 K/mm3 (0.00-0.031); Immature Granulocyte Percent A 0.3 % (0-0.5); Lymphocytes Absolute Auto 1.52 K/mm3 (0.9-3.2); Lymphocytes Percent Auto 17.5 % (18.3-44.2); Mean Corpuscular HGB Conc 31.8 g/dl (32-36); Mean Corpuscular Hemoglobin 28.7 pg (26-34); Mean Corpuscular Volume 90.2 fl (80-100); Mean Platelet Volume 9.8 fl (7.4-10.4); Monocytes Absolute Auto 0.8 K/mm3 (0.1-0.6); Monocytes Percent Auto 9.2 % (2.6-8.5); Neutrophils Absolute Auto 6.2 K/mm3 (1.3-6.7); Neutrophils Percent Auto 71.5 % (45.5-73.1); Platelet Count Result 210 k/mm3 (150-375); Red Cell Distribution Width 16.5 % (11.5-14.5); White Blood Count 8.7 K/mm3 (4.5-10.0)
[2024-02-05 06:56] LABS: Alanine Aminotransferase 10 U/L (6-35); Albumin Level 3.5 g/dL (3.5-5.1); Alkaline Phosphatase 74 U/L (38-126); Anion Gap 8 mmol/L (4-12); Aspartate Amino Transferase 16 U/L (14-36); Bilirubin,Total 0.9 mg/dL (0.2-1.3); Blood Urea Nitrogen 32 mg/dL (7-17); Calcium 8.9 mg/dL (8.4-10.2); Carbon Dioxide 24 mmol/L (22-30); Chloride 103 mmol/L (98-107); Estimated CRCL calculation 31 ml/min; Estimated Glomerular Filt Rate 36; Glucose 93 mg/dL (65-110); Potassium 3.9 mmol/L (3.4-5.0); Sodium 135 mmol/L (137-145)
--- NOTE | 2024-02-05 08:34 | PM.IMPN ---
Progress Note: A&P Assessment and Plan (1) Sepsis: Qualifiers: Acute renal failure type: unspecified Sepsis acute organ dysfunction status: with acute organ dysfunction Sepsis type: sepsis due to unspecified organism Severe sepsis acute organ dysfunction type: acute renal failure Severe sepsis shock status: without septic shock Qualified Code(s): A41.9 - Sepsis, unspecified organism; R65.20 - Severe sepsis without septic shock; N17.9 - Acute kidney failure, unspecified Code(s): A41.9 - Sepsis, unspecified organism Status: Acute Assessment and Plan: Meets SIRS criteria: HR and WBC, no hypotension - lactic acid: 0.9 - lactic elevated, procalcitonin added - 30 mL/kg = 3L, given 2L with slow infusion of 3rd - suspected source: colitis/dehydration - started on Zosyn on 02/03 - blood cultures drawn on 02/03 - monitor hemodynamics (2) Acute GI bleeding: Code(s): K92.2 - Gastrointestinal hemorrhage, unspecified Status: Acute Assessment and Plan: - evie clots per rectum, on Eliquis and aspirin (holding). likely secondary to colitis and further exacerbated by the anticoagualtion. - CT abd/pelvis: Colitis involving descending and sigmoid colon. - EGD, previous (2021): Nonerosive reflux disease, small hiatal hernia found in the fundus, and aerophagia. - Colonoscopy, previous (06/2022): Diverticulosis without perforation or abscess without bleeding - h/h 13.2/41.5 on am labs, remains stable at this time - pantoprazole IVP b.i.d. - continue holding eliquis at this time - trend CBC and monitor I&Os - NPO except ice chips. Non essential medications held, resume when appropriate. - GI consulted continue IV antibiotics no need for colonoscopy at this time (3) Colitis: Code(s): K52.9 - Noninfective gastroenteritis and colitis, unspecified Status: Acute Assessment and Plan: - CT abd/pelvis showed colitis of the descending/sigmoid colon - started on Zosyn on 02/03 - IV fluids - pain management (4) TERESITA (acute kidney injury): Code(s): N17.9 - Acute kidney failure, unspecified Status: Acute Assessment and Plan: - creatinine 1.6 and GFR 31 on admission, previously 1.0 and GFR 53 on 12/16/2023. Per PCP patient has history of CKD. - suspect prerenal related to dehydration, IV fluids started - 2L bolus given for sepsis, continue at 75 mL/hr x1L - BUN/Cr 32/1.4 on am labs - trend renal function - trend electrolytes, correct as needed (5) HTN (hypertension): Qualifiers: Hypertension type: primary hypertension Qualified Code(s): I10 - Essential (primary) hypertension Code(s): I10 - Essential (primary) hypertension Status: Chronic Assessment and Plan: Chronic, remains stable despite holding antihypertensives. - home medications: hold HCTZ and lisinopril - hydralazine p.r.n. - monitor Time Spent With Patient Time with patient: 25 - 35 minutes Subjective Date/time seen: 02/05/24 08:34 Interval history: 85 y/o F presents here with abdominal pain with PMH of anemia, CAD, CKD, CA, hypertension, hyperlipidemia, and hypothyroidism. Patient is presently lying comfortably in bed. GI nurse practitioner was present during assessment. Patient states that she is feeling better today and that the bleeding has much improved. She notes that yesterday she had 5+ episodes of passing blood clots per rectum and today she has only 3. We continue to hold her Eliquis and aspirin at this time and her H and H remains stable. She continues to endorse slight abdominal pain worse in the lower region. Patient denies chest pain shortness a breath nausea vomiting and changes in urination. Review of Systems Review of Systems: All systems reviewed & are unremarkable except as noted in HPI and below Exam Narrative: AF HR 67 RR 18 SpO2 96 BP 124/52 General: female in no acute respiratory distress who is nontoxic appearing, lying se
[2024-02-05] MEDS: PANTOPRAZOLE SODIUM IV 40 MG VIAL IV PUSH (09:10)
[2024-02-05] MEDS: HYDROcodone/acetaminophen (*CRX) 5-325 MG TABLET 1 TAB PO ×2 (11:12→22:30)
[2024-02-05 13:29] LABS: Hematocrit 43.2 % (37.0-47.0); Hemoglobin 13.6 g/dL (12.0-15.0)
[2024-02-05 14:00] VITALS: BP 152/60; PULSE 78; RESP 18; TEMP 36.4; O2SAT 98
--- NOTE | 2024-02-05 14:40 | WPDGICN ---
Assessment and Plan Assessment and plan (1) Colitis: Code(s): K52.9 - Noninfective gastroenteritis and colitis, unspecified Status: Acute Assessment and Plan: this is cause of presentation, ? probably ischemic she is feeling much better right now, no more rectal bleeding if more stool then will send specimen on iv abx lactic acid normal no need of colonoscopy now (2) TERESITA (acute kidney injury): Code(s): N17.9 - Acute kidney failure, unspecified Status: Acute Assessment and Plan: mild teresita, monitor (3) Rectal bleeding: Code(s): K62.5 - Hemorrhage of anus and rectum Status: Acute Assessment and Plan: from colitis stable h/h monitor holding eliquis (4) Blood thinned due to long-term anticoagulant use: Code(s): Z79.01 - manager long term care (current) use of anticoagulants Status: Acute (5) Sepsis: Qualifiers: Sepsis type: sepsis due to unspecified organism Sepsis acute organ dysfunction status: with acute organ dysfunction Severe sepsis acute organ dysfunction type: acute renal failure Acute renal failure type: unspecified Severe sepsis shock status: without septic shock Qualified Code(s): A41.9 - Sepsis, unspecified organism; R65.20 - Severe sepsis without septic shock; N17.9 - Acute kidney failure, unspecified Code(s): A41.9 - Sepsis, unspecified organism Status: Acute GI Consult Note Consult date/time: 02/05/24 14:40 Reason for consult: bloody stool, colitis HPI: Gunjan Diaz is a 83 year old female with history of coronary artery disease, DVT on eliquis, CKD, HTN. She is seeing us in the office because GERD and IBS (last colonoscopy in November 2022 with diverticulosis, no colitis), EGD in 2021 She is here with new onset of lower abdominal cramping then passed bright red blood per rectum and also had diaphoresis, never had similar episode. She called her PCP and advised to come to ER. ED labs showed WBC 13.4, hemoglobin 15.1, INR 1.2, creatinine 1.6 and GFR 31 (previously 1.0 and GFR 53 on 12/16/2023). CT of the abdomen/pelvis showed colitis involving the descending and sigmoid colon. She was started on antibiotics. Denies fever, no sick contacts. Had total of 5 bloody BM, none since she arrived to floor. Review of Systems Constitutional: Constitutional: Denies body ache(s) Eyes: Eyes: Denies blurry vision ENT: Reports Normal hearing present, Denies headache(s) and Denies neck pain Cardiovascular: Cardiovascular: Denies chest pain and Denies dyspnea Respiratory: Respiratory: Reports cough Gastrointestinal: Gastrointestinal: Reports abdominal pain and Reports hematochezia Genitourinary: Genitourinary: Denies dysuria Musculoskeletal: Musculoskeletal: Denies neck pain Integumentary/Breasts: Skin/Breast: Denies dry skin Neurologic: Reports Normal hearing present and Denies headache(s) Psychiatric: Psychiatric: Denies anxiety Endocrine: Endocrine: Denies change in body appearance Allergic/Immunologic: Allergic/Immunologic: Denies urticaria PMFSH Past Medical History Medical History (Updated 02/05/24 @ 14:48 by Madhu Benson MD) Anemia Arthritis Blood thinned due to long-term anticoagulant use CAD (coronary artery disease) CAD (coronary atherosclerotic disease) CKD (chronic kidney disease) Disorder of thyroid GERD (gastroesophageal reflux disease) History of heart attack 2008 HTN (hypertension) Hyperlipidemia Hypothyroidism Myocardial infarction Rectal bleeding Surgical History Surgical History History of coronary artery stent placement History of hysterectomy Family History Family History Father Cancer Mother Hypertension Heart disease Cerebrovascular accident Grandparent Hypertension Heart disease Cerebrovascular accident Grandparent Cancer Cerebrovascular
[2024-02-05 20:00] VITALS: PULSE 55; RESP 18; O2SAT 93
[2024-02-05 20:16] LABS: Hematocrit 39.8 % (37.0-47.0); Hemoglobin 12.7 g/dL (12.0-15.0)
[2024-02-05 20:20] VITALS: BP 117/36; PULSE 55; RESP 18; TEMP 36.3; O2SAT 93
[2024-02-06] MEDS: PIPERACILLIN/TAZ 2.25G/NS 50ML 2.25 GM/50 ML BAG IVPB ×4 (03:07→20:43)
[2024-02-06] MEDS: HYDROcodone/acetaminophen (*CRX) 5-325 MG TABLET 1 TAB PO (03:13)
[2024-02-06] MEDS: LEVOTHYROXINE SODIUM 75 MCG TABLET PO (05:20)
[2024-02-06 05:33] VITALS: BP 139/42; PULSE 61; RESP 18; TEMP 37.2; O2SAT 99
[2024-02-06 06:35] LABS: Basophils Percent Auto 0.5 % (0.2-1.2); Eosinophils Absolute Auto 0.1 K/mm3 (0-0.3); Eosinophils Percent Auto 1.8 % (0-4.4); Hematocrit 39.7 % (37.0-47.0); Hemoglobin 12.7 g/dL (12.0-15.0); Immature Granulocyte Absolute 0.03 K/mm3 (0.00-0.031); Immature Granulocyte Percent A 0.5 % (0-0.5); Lymphocytes Absolute Auto 1.19 K/mm3 (0.9-3.2); Mean Corpuscular Volume 90.6 fl (80-100); Mean Platelet Volume 10.2 fl (7.4-10.4); Monocytes Absolute Auto 0.5 K/mm3 (0.1-0.6); Monocytes Percent Auto 8.9 % (2.6-8.5); Neutrophils Absolute Auto 4.1 K/mm3 (1.3-6.7); Neutrophils Percent Auto 68.3 % (45.5-73.1); Platelet Count Result 192 k/mm3 (150-375); Red Blood Count 4.38 M/mm3 (4.2-5.4); Red Cell Distribution Width 16.1 % (11.5-14.5)
[2024-02-06 06:47] LABS: Alanine Aminotransferase 9 U/L (6-35); Albumin Level 3.4 g/dL (3.5-5.1); Alkaline Phosphatase 66 U/L (38-126); Anion Gap 8 mmol/L (4-12); Aspartate Amino Transferase 17 U/L (14-36); Bilirubin,Total 0.8 mg/dL (0.2-1.3); Blood Urea Nitrogen 21 mg/dL (7-17); Calcium 8.9 mg/dL (8.4-10.2); Carbon Dioxide 24 mmol/L (22-30); Chloride 103 mmol/L (98-107); Estimated CRCL calculation 35 ml/min; Estimated Glomerular Filt Rate 43; Glucose 85 mg/dL (65-110); Potassium 3.7 mmol/L (3.4-5.0); Sodium 135 mmol/L (137-145)
--- NOTE | 2024-02-06 08:02 | PM.IMPN ---
Progress Note: A&P Assessment and Plan (1) Sepsis: Qualifiers: Acute renal failure type: unspecified Sepsis acute organ dysfunction status: with acute organ dysfunction Sepsis type: sepsis due to unspecified organism Severe sepsis acute organ dysfunction type: acute renal failure Severe sepsis shock status: without septic shock Qualified Code(s): A41.9 - Sepsis, unspecified organism; R65.20 - Severe sepsis without septic shock; N17.9 - Acute kidney failure, unspecified Code(s): A41.9 - Sepsis, unspecified organism Status: Acute Assessment and Plan: Meets SIRS criteria: HR and WBC, no hypotension - lactic acid: 0.9 - lactic elevated, procalcitonin added - 30 mL/kg = 3L, given 2L with slow infusion of 3rd - suspected source: colitis/dehydration - started on Zosyn on 02/03 - blood cultures drawn on 02/03: NGTD - monitor hemodynamics (2) Acute GI bleeding: Code(s): K92.2 - Gastrointestinal hemorrhage, unspecified Status: Acute Assessment and Plan: - evie clots per rectum, on Eliquis and aspirin (holding). likely secondary to colitis and further exacerbated by the anticoagualtion. - CT abd/pelvis: Colitis involving descending and sigmoid colon. - EGD, previous (2021): Nonerosive reflux disease, small hiatal hernia found in the fundus, and aerophagia. - Colonoscopy, previous (06/2022): Diverticulosis without perforation or abscess without bleeding - h/h 13.2/41.5 on am labs, remains stable at this time - pantoprazole IVP b.i.d. - continue holding eliquis at this time - trend CBC and monitor I&Os - NPO except ice chips. Non essential medications held, resume when appropriate. - GI consulted continue IV antibiotics no need for colonoscopy at this time okay to resume eliquis tomorrow (3) Colitis: Code(s): K52.9 - Noninfective gastroenteritis and colitis, unspecified Status: Acute Assessment and Plan: - CT abd/pelvis showed colitis of the descending/sigmoid colon - started on Zosyn on 02/03 - IV fluids - pain management (4) TERESITA (acute kidney injury): Code(s): N17.9 - Acute kidney failure, unspecified Status: Acute Assessment and Plan: - creatinine 1.6 and GFR 31 on admission, previously 1.0 and GFR 53 on 12/16/2023. Per PCP patient has history of CKD. - suspect prerenal related to dehydration, IV fluids started - 2L bolus given for sepsis, continue at 75 mL/hr x1L - BUN/Cr 21/1.2 on am labs - trend renal function - trend electrolytes, correct as needed (5) HTN (hypertension): Qualifiers: Hypertension type: primary hypertension Qualified Code(s): I10 - Essential (primary) hypertension Code(s): I10 - Essential (primary) hypertension Status: Chronic Assessment and Plan: Chronic, remains stable. - home medications: hold HCTZ and continue lisinopril - hydralazine p.r.n. - monitor Time Spent With Patient Time with patient: 25 - 35 minutes Subjective Date/time seen: 02/06/24 08:02 Interval history: 85 y/o F presents here with abdominal pain with PMH of anemia, CAD, CKD, NH, hypertension, hyperlipidemia, and hypothyroidism. Patient is pleasant sitting up in bed. Patient states she is feeling much better and that she is no longer passing blood or clots per rectum. Her H/H remains stable at this time. Discussed patient with Dr. Antonio and due to her history of DVTs and PE he states we can resume the eliquis tomorrow. Patient was up and ambulating throughout room during assessment. She denies chest pain, shortness of breath, nausea/vomiting, abdominal pain. Review of Systems Review of Systems: All systems reviewed & are unremarkable except as noted in HPI and below Exam Narrative: AF HR 61 RR 18 SpO2 99 BP 139/42 General: female in no acute respiratory distress who is nontoxic appearing, lying semi recumbent in bed. HEENT: Normocephalic. Atraumatic. Extraocular movement intact. Sclera
--- NOTE | 2024-02-06 08:07 | P.CDI_ITS ---
CDI Query Clarification Request Patient with a BMI of 44.3 please provide a diagnosis to accompany this finding: * Overweight * Obesity * Morbid Obesity * Other/Unknown <Kiara Martinez RN - Last Filed: 02/06/24 08:08> Clarified Diagnosis Clarified Diagnosis: Morbid obesity <Lidia Dong PA-C - Last Filed: 02/06/24 08:51>
[2024-02-06] MEDS: PANTOPRAZOLE SODIUM IV 40 MG VIAL IV PUSH (10:29)
[2024-02-06] MEDS: lisinopriL 20 MG TABLET 40 MG PO (10:29)
[2024-02-06 14:00] VITALS: BP 114/51; PULSE 89; RESP 18; TEMP 36.7; O2SAT 76
--- NOTE | 2024-02-06 15:51 | WPDGIPROGNO ---
Progress Note: A&P Assessment and Plan (1) Rectal bleeding: Code(s): K62.5 - Hemorrhage of anus and rectum Status: Acute Assessment and Plan: probably ischemic colitis but overall much better normal lactic, no more blood with stools, pain has improved home tomorrow if she continues to improve she is covered with abx should be able to resume her eliquis in about 5 days (2) Colitis: Code(s): K52.9 - Noninfective gastroenteritis and colitis, unspecified Status: Acute Assessment and Plan: medical support (3) Lower abdominal pain: Code(s): R10.30 - Lower abdominal pain, unspecified Status: Acute (4) TERESITA (acute kidney injury): Code(s): N17.9 - Acute kidney failure, unspecified Status: Acute Assessment and Plan: improving Subjective Date/time seen: 02/06/24 15:51 Interval history: feeling significantly better, no more blood in stool in fact no more BM since yesterday still some abdominal discomfort but eating Review of Systems Review of Systems: All systems reviewed & are unremarkable except as noted in HPI and below Exam Const: General: comfortable and no acute distress HENMT: Face/Nose/Sinus: Normal nares present Eyes: General: appearance normal, both eyes and all related structures Neck: Neck: supple Resp: Auscultation: clear to auscultation bilaterally Cardio: Rate: regular rate Rhythm: regular rhythm GI: Inspection: non-distended GI Palp: Yes Soft to palpation and No Tenderness to palpation present (GI) Auscultation: normal bowel sounds Skin: General skin exam: no rashes or lesions noted Neuro: Speech: normal speech Motor exam (neuro): 5/5 motor strength present throughout Extrem: General: normal to inspection Psych: Mental Status: mental status grossly normal Objective Data Vital Signs Vital Signs: Vital Signs - 24 hr 02/05/24 20:20 02/05/24 20:00 02/06/24 05:33 Temperature 97.4 F L 99.0 F Pulse Rate 55 L 55 L 61 Respiratory Rate 18 18 18 Blood Pressure 117/36 L 139/42 L Pulse Oximetry 93 93 99 Oxygen Delivery Room Air 02/06/24 10:30 Temperature Pulse Rate Respiratory Rate Blood Pressure Pulse Oximetry Oxygen Delivery Room Air Intake/Output Intake/Output: Intake & Output 09/02/24 02/04/24 02/05/24 02/06/24 23:59 23:59 23:59 23:59 Intake Total 1550 1200 580 Balance 1550 1200 580 Meds/Results Medications: Active Medications Generic Name Dose Route Start Last Admin Trade Name Freq PRN Reason Stop Dose Admin Acetaminophen 650 mg 02/04/24 22:08 Acetaminophen 325 Mg Tablet PO Q4H PRN Mild Pain (1-3) or Fever Hydrocodone Bitart/Acetaminophen 1 tab 02/04/24 22:08 02/06/24 03:13 Hydrocodone/Acetaminophen (*Crx) 5-325 Mg Tablet PO 1 tab Q4H PRN Administration Pain Rated 4-6 Dicyclomine HCl 20 mg 02/04/24 22:08 Dicyclomine Hcl 10 Mg Capsule PO QID PRN Abdominal Cramping Hydralazine HCl 10 mg 02/04/24 22:58 Hydralazine Hcl 20 Mg/Ml Vial IV PUSH Q8H PRN BP greater than 180/90 Piperacillin Sod/Tazobactam Sod 2.25 gm in 50 mls @ 100 mls/hr 02/05/24 03:00 02/06/24 15:31 Zosyn 2.25 Gm/Ns 50 Ml IVPB 100 mls/hr Q6H THANG Administration Levothyroxine Sodium 75 mcg 02/05/24 06:30 02/06/24 05:20 Levothyroxine Sodium 75 Mcg Tablet PO 75 mcg DAILY@0630 THANG Administration Lisinopril 40 mg 02/06/24 09:00 02/06/24 10:29 Lisinopril 20 Mg Tablet PO 40 mg DAILY THANG Administration Pantoprazole Sodium 40 mg 02/05/24 09:00 02/06/24 10:29 Pantoprazole Sodium Iv 40 Mg Vial IV PUSH 40 mg QAM THANG Administration Radiology Results: ITS Impressions Abdomen/Pelvis CT 02/04/24 20:57 IMPRESSION: 1. Colitis involving descending and sigmoid colon. Labs Labs: Laboratory Results - last 24 hr 02/05/24 02/06/24 20:06 06:19 WBC 6.0 RBC 4.38 Hgb 12.7 12.7 Hct 39.8 39.7
[2024-02-06 20:59] VITALS: BP 146/92; PULSE 66; RESP 16; TEMP 36.9; O2SAT 95
[2024-02-07] MEDS: HYDROcodone/acetaminophen (*CRX) 5-325 MG TABLET 1 TAB PO ×3 (00:39→09:04)
[2024-02-07] MEDS: PIPERACILLIN/TAZ 2.25G/NS 50ML 2.25 GM/50 ML BAG IVPB ×2 (03:28→09:02)
[2024-02-07] MEDS: LEVOTHYROXINE SODIUM 75 MCG TABLET PO (05:18)
[2024-02-07 05:47] VITALS: BP 153/51; PULSE 61; RESP 18; TEMP 36.8; O2SAT 96
[2024-02-07 06:28] LABS: Basophils Percent Auto 0.5 % (0.2-1.2); Eosinophils Absolute Auto 0.1 K/mm3 (0-0.3); Eosinophils Percent Auto 2.3 % (0-4.4); Hematocrit 40.5 % (37.0-47.0); Immature Granulocyte Absolute 0.03 K/mm3 (0.00-0.031); Immature Granulocyte Percent A 0.5 % (0-0.5); Lymphocytes Absolute Auto 1.53 K/mm3 (0.9-3.2); Lymphocytes Percent Auto 27.1 % (18.3-44.2); Mean Corpuscular HGB Conc 32.1 g/dl (32-36); Mean Corpuscular Volume 90.4 fl (80-100); Mean Platelet Volume 10.1 fl (7.4-10.4); Monocytes Absolute Auto 0.5 K/mm3 (0.1-0.6); Neutrophils Absolute Auto 3.5 K/mm3 (1.3-6.7); Neutrophils Percent Auto 61.6 % (45.5-73.1); Platelet Count Result 220 k/mm3 (150-375); Red Blood Count 4.48 M/mm3 (4.2-5.4); Red Cell Distribution Width 16.1 % (11.5-14.5); White Blood Count 5.6 K/mm3 (4.5-10.0)
[2024-02-07 06:37] LABS: Alanine Aminotransferase 10 U/L (6-35); Albumin Level 3.6 g/dL (3.5-5.1); Alkaline Phosphatase 65 U/L (38-126); Anion Gap 10 mmol/L (4-12); Aspartate Amino Transferase 19 U/L (14-36); Bilirubin,Total 0.8 mg/dL (0.2-1.3); Blood Urea Nitrogen 21 mg/dL (7-17); Calcium 9.2 mg/dL (8.4-10.2); Carbon Dioxide 22 mmol/L (22-30); Chloride 105 mmol/L (98-107); Estimated CRCL calculation 33 ml/min; Estimated Glomerular Filt Rate 39; Glucose 91 mg/dL (65-110); Potassium 3.7 mmol/L (3.4-5.0); Sodium 137 mmol/L (137-145)
[2024-02-07] MEDS: PANTOPRAZOLE SODIUM IV 40 MG VIAL IV PUSH (09:02)
[2024-02-07] MEDS: lisinopriL 20 MG TABLET 40 MG PO (09:02)
[2024-02-07 14:00] VITALS: BP 115/82; PULSE 60; RESP 16; TEMP 35.9; O2SAT 98
--- NOTE | 2024-02-07 14:06 | PM.DS ---
DS: Admitting Diagnosis Discharge Date 02/07/2024 Admitting Diagnosis sepsis acute GI bleed colitis TERESITA hypertension DS: Discharge Diagnosis Discharge Diagnosis (1) Sepsis: Qualifiers: Acute renal failure type: unspecified Sepsis acute organ dysfunction status: with acute organ dysfunction Sepsis type: sepsis due to unspecified organism Severe sepsis acute organ dysfunction type: acute renal failure Severe sepsis shock status: without septic shock Qualified Code(s): A41.9 - Sepsis, unspecified organism; R65.20 - Severe sepsis without septic shock; N17.9 - Acute kidney failure, unspecified Code(s): A41.9 - Sepsis, unspecified organism Status: Acute (2) Acute GI bleeding: Code(s): K92.2 - Gastrointestinal hemorrhage, unspecified Status: Acute (3) Colitis: Code(s): K52.9 - Noninfective gastroenteritis and colitis, unspecified Status: Acute (4) TEREISTA (acute kidney injury): Code(s): N17.9 - Acute kidney failure, unspecified Status: Acute (5) HTN (hypertension): Qualifiers: Hypertension type: primary hypertension Qualified Code(s): I10 - Essential (primary) hypertension Code(s): I10 - Essential (primary) hypertension Status: Chronic DS: Summary Hospital Course Reason for hospitalization: sepsis acute GI bleed colitis TERESITA hypertension Hospital Course: 85 y/o F presents here with abdominal pain and evie clots per rectum, on Eliquis and aspirin with PMH of anemia, CAD, CKD, [place], hypertension, hyperlipidemia, and hypothyroidism. Patient meeting sepsis requirements on admission with leukocytosis and tachycardia. H/H remained stable throughout admission. She also had a slight TERESITA and was started on IV fluids. CT abdomen/pelvis showed colitis involving descending and sigmoid colon. Patient was made NPO, started on IV antibiotics, and anticoagulation was held. GI consulted. Patients last colonoscopy was in 2022 adn showed diverticulosis without perforation or abscess without bleeding. GI did not need a new colonoscopy and recommended continued antibiotics and advancing the diet as tolerated. Patient was advanced back to a regular diet and denied nausea/vomiting and changes in bowel/bladder. During admission patient was no longer having hematochezia and was able to resume her eliquis per GI. Shas discharged on Cefdinir and Flagyl to complete her antibiotic course for the colitis. Patient continued to have a slightly elevated BUN/Cr on labs. She will obtain a BMP to reassess and follow up with her PCP. Prior to discharge patient denied chest pain, shortness of breath, nausea/vomiting, abdominal pain, and changes in bowel/bladder. Patient discharged home in stable condition. She is complete her antibiotics as prescribed and follow up with her PCP in 1 week. Status at Discharge Functional status at discharge: independent ambulation Time Spent with Patient Time attestation: Total time spent providing and/or coordinating discharge services: Time spent: Greater than 30 minutes Exam Narrative: AF HR 60 RR 16 SpO2 98 BP 115/82 General: female in no acute respiratory distress who is nontoxic appearing, lying semi recumbent in bed. HEENT: Normocephalic. Atraumatic. Extraocular movement intact. Sclera clear and anicteric. No facial asymmetry. Chest: Lungs are clear to auscultation bilaterally. No wheezes or crackles. CV: Heart was regular rate and rhythm. S1-S2. No murmurs, gallops, or rubs. Abd: Abdomen was soft. Nontender. Nondistended. Positive bowel sounds. No organomegaly or masses. DS: Data Data Completed and Pending Completed studies during hospitalization: Abdomen/pelvis CT Labs on day of discharge: Labs from last 24 hours 02/07/24 06:11 WBC 5.6 RBC 4.48 Hgb 13.0 Hct 40.5 MCV 90.4 MCH 29.0 MCHC 32.1 RDW 16.1 H Plt Count 220 MPV 10.1 Immature Gran % (Auto) 0.5 Neut % (Auto) 61.6 Lymph % (Auto) 27.
--- NOTE | 2024-02-07 15:46 | WPDGIPROGNO ---
Progress Note: A&P Assessment and Plan (1) Rectal bleeding: Code(s): K62.5 - Hemorrhage of anus and rectum Status: Acute Assessment and Plan: probably ischemic colitis but overall much better normal lactic, no more blood with stools, pain resolved ok to resume eliquis since she had DVT without it and denies any more bleeding, also stable h/h (2) Colitis: Code(s): K52.9 - Noninfective gastroenteritis and colitis, unspecified Status: Acute Assessment and Plan: resolved (3) Lower abdominal pain: Code(s): R10.30 - Lower abdominal pain, unspecified Status: Acute Assessment and Plan: resolved Subjective Date/time seen: 02/07/24 15:46 Interval history: doing 100% better, no more blood with stool and tolerating diet she is going home today Review of Systems Review of Systems: All systems reviewed & are unremarkable except as noted in HPI and below Exam Const: General: comfortable and no acute distress HENMT: Face/Nose/Sinus: Normal nares present Eyes: General: appearance normal, both eyes and all related structures Neck: Neck: no JVD Resp: Auscultation: clear to auscultation bilaterally Cardio: Rate: regular rate Rhythm: regular rhythm GI: Inspection: non-distended GI Palp: Yes Soft to palpation and No Tenderness to palpation present (GI) Auscultation: normal bowel sounds Skin: General skin exam: normal color Neuro: Speech: normal speech Motor exam (neuro): 5/5 motor strength present throughout Extrem: General: normal to inspection Psych: Mental Status: mental status grossly normal Objective Data Vital Signs Vital Signs: Vital Signs - 24 hr 02/06/24 20:00 02/06/24 20:59 02/07/24 05:47 Temperature 98.4 F 98.2 F Pulse Rate 66 61 Respiratory Rate 16 18 Blood Pressure 146/92 H 153/51 H Pulse Oximetry 95 96 Oxygen Delivery Room Air 02/07/24 09:00 02/07/24 14:00 Temperature 96.6 F L Pulse Rate 60 Respiratory Rate 16 Blood Pressure 115/82 Pulse Oximetry 98 Oxygen Delivery Room Air Intake/Output Intake/Output: Intake & Output 02/04/24 02/05/24 02/06/24 02/07/24 23:59 23:59 23:59 23:59 Intake Total 1550 7719 216 5683 Balance 1550 8632 947 1677 Meds/Results Medications: Active Medications Generic Name Dose Route Start Last Admin Trade Name Freq PRN Reason Stop Dose Admin Acetaminophen 650 mg 02/04/24 22:08 Acetaminophen 325 Mg Tablet PO Q4H PRN Mild Pain (1-3) or Fever Hydrocodone Bitart/Acetaminophen 1 tab 02/04/24 22:08 02/07/24 09:04 Hydrocodone/Acetaminophen (*Crx) 5-325 Mg Tablet PO 1 tab Q4H PRN Administration Pain Rated 4-6 Dicyclomine HCl 20 mg 02/04/24 22:08 Dicyclomine Hcl 10 Mg Capsule PO QID PRN Abdominal Cramping Hydralazine HCl 10 mg 02/04/24 22:58 Hydralazine Hcl 20 Mg/Ml Vial IV PUSH Q8H PRN BP greater than 180/90 Piperacillin Sod/Tazobactam Sod 2.25 gm in 50 mls @ 100 mls/hr 02/05/24 03:00 02/07/24 09:32 Zosyn 2.25 Gm/Ns 50 Ml IVPB Infused Q6H THANG Infusion Levothyroxine Sodium 75 mcg 02/05/24 06:30 02/07/24 05:18 Levothyroxine Sodium 75 Mcg Tablet PO 75 mcg DAILY@0630 THANG Administration Lisinopril 40 mg 02/06/24 09:00 02/07/24 09:02 Lisinopril 20 Mg Tablet PO 40 mg DAILY THANG Administration Pantoprazole Sodium 40 mg 02/05/24 09:00 02/07/24 09:02 Pantoprazole Sodium Iv 40 Mg Vial IV PUSH 40 mg QAM THANG Administration Radiology Results: ITS Impressions Abdomen/Pelvis CT 02/04/24 20:57 IMPRESSION: 1. Colitis involving descending and sigmoid colon. Labs Labs: Laboratory Results - last 24 hr 02/07/24 06:11 WBC 5.6 RBC 4.48 Hgb 13.0 Hct 40.5 MCV 90.4 MCH 29.0 MCHC 32.1 RDW 16.1 H Plt Count 220 MPV 10.1 Immature Gran % (Auto) 0.5 Neut % (Auto) 61.6 Lymph % (Auto) 27.1 [place] % (Auto) 8.0 Eos % (Auto) 2.3 Baso % (Auto) 0.5
== END 2024-02-07 15:55 | disposition home or self-care (01) | DRG 872 ==
LOC: ANHED 21:58 → ANH3MEDSUR 22:29
PROVIDERS: Emergency Medicine; Student in an Organized Health Care Education/Training Program; Admitting Provider Internal Medicine; Emergency Provider Physician Assistant; PCP Nurse Practitioner Adult Health; Visit Provider Student in an Organized Health Care Education/Training Program
DX: A41.9 Sepsis, unspecified organism (principal); N17.9 Acute kidney failure, unspecified; K55.9 Vascular disorder of intestine, unspecified; K92.2 Gastrointestinal hemorrhage, unspecified; Z68.41 Body mass index [BMI] 40.0-44.9, adult; R65.20 Severe sepsis without septic shock; I12.9 Hypertensive chronic kidney disease with stage 1 through stage 4 chronic kidney disease, or unspecified chronic kidney disease; N18.9 Chronic kidney disease, unspecified; I25.10 Atherosclerotic heart disease of native coronary artery without angina pectoris; E86.0 Dehydration; D64.9 Anemia, unspecified; M19.90 Unspecified osteoarthritis, unspecified site; K57.90 Diverticulosis of intestine, part unspecified, without perforation or abscess without bleeding; E78.5 Hyperlipidemia, unspecified; K44.9 Diaphragmatic hernia without obstruction or gangrene; E03.9 Hypothyroidism, unspecified; E66.01 Morbid (severe) obesity due to excess calories; Z79.82 Long term (current) use of aspirin; Z79.01 Long term (current) use of anticoagulants; I25.2 Old myocardial infarction; Z95.5 Presence of coronary angioplasty implant and graft; Z90.710 Acquired absence of both cervix and uterus; Z87.891 Personal history of nicotine dependence
CPT/HCPCS: 36415; 74177; 80053; 83605; 85014; 85018; 85025; 85610; 85730; 86850; 86860; 86870; 86880; 86900; 86901; 86902; 86922; 86971; 87040; 96361; 96365; 96366; 99285; A9270; G0378; J2470; J2543; J7030; J7040; Q9967

== ENCOUNTER 2024-05-28 15:18 | Outpatient (CLI) | payer MEDICARE, OTHER, SELFPAY ==
--- NOTE | ~2024-05-28 | XR_ITS ---
EXAM: XR ankle RT min 3V, XR foot LT 2V, XR foot RT 2V, XR ankle LT min 3V DATE: 05/28/2024 16:03 HISTORY: Unspecified osteoarthiritis . COMPARISON: None available. FINDINGS: Decreased mineralization. No fracture or dislocation. No lytic or blastic lesion. Mild deg enerative change in the bilateral ankles, bilateral first MTP joints, and multiple bilateral midfoot joints. Moderate right and mild left Achilles enthesopathy. Moderate bilateral plantar enthesopathy. No erosion or periosteal change. Soft tissues within normal limits. IMPRESSION: Osteopenia. 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 Reviewed, dictated and finalized at location K. E TESTED NURSING ASSISTANT IMPRESSION: Osteopenia. Mild polyarticular osteoarthritis in the ankles and fee t. IMPRESSION: Osteopenia. Mild polyarticular osteoarthritis in the ankles and fee t. IMPRESSION: Osteopenia. Mild polyarticular osteoarthritis in the ankles and fee t.
--- NOTE | ~2024-05-28 | XR_ITS ---
EXAM: [id number] DATE: 05/28/2024 16:03 HISTORY: Unspecified Osteoarthritis . COMPARISON: None available. FINDINGS: Decreased mineralization. No fracture or dislocation. No lytic or blastic lesion. Severe l ateral joint space narrowing. Exaggerated valgus alignment. Chondrocalcinosis. Moderate tricompartmen marquez osteophytosis. No erosion or periosteal change. Soft tissues within normal limits. IMPRESSION: Osteopenia. Tricompartmental knee arthritis with chondrocalcinosis, severe in the lateral compartment. Reviewed, dictated and finalized at location K. 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
--- NOTE | ~2024-05-28 | XR_ITS ---
EXAM: [id number] DATE: 05/28/2024 16:03 HISTORY: Unspecified Osteoarthritis . COMPARISON: None available. FINDINGS: Decreased mineralization. No fracture or dislocation. No lytic or blastic lesion. Severe l ateral joint space narrowing. Moderate tricompartmental osteophytosis. Minimal chondrocalcinosis. No erosion or periosteal change. Soft tissues within normal limits. IMPRESSION: Osteopenia. Tricompartmental left knee arthritis, with chondrocalcinosis, severe in the l ateral compartment. Reviewed, dictated and finalized at location K. T BOSS IMPRESSION: Osteopenia. Tricompartmental left knee arthritis, with chondrocalci nosis, severe in the lateral compartment.
== END 2024-05-28 15:19 | disposition home or self-care (01) ==
PROVIDERS: PCP Nurse Practitioner Adult Health; Visit Provider Internal Medicine
DX: M85.89 Other specified disorders of bone density and structure, multiple sites (principal); M17.12 Unilateral primary osteoarthritis, left knee; M11.262 Other chondrocalcinosis, left knee; M19.072 Primary osteoarthritis, left ankle and foot; M19.071 Primary osteoarthritis, right ankle and foot
CPT/HCPCS: 73560; 73610; 73620

== ENCOUNTER 2024-09-08 14:26 | Outpatient (CLI) | payer MEDICARE, OTHER, SELFPAY ==
--- NOTE | ~2024-09-08 | MM_ITS ---
EXAMINATION: MM screening [facility] HISTORY: Screening TECHNIQUE: Craniocaudal and mediolateral oblique 3-D tomosynthesis images were obtained and synthetic 2-D images were generated. CAD analysis was submitted and interpreted. COMPARISON: Comparison to multiple prior studies sequentially, with oldest reviewed study dated 07/2018. BREAST PARENCHYMAL COMPOSITION: There are scattered areas of fibroglandular density. FINDINGS: There is no evidence of suspicious mass, calcification, or architectural distortion to sugg est malignancy in either breast. There has been no suspicious interval change. IMPRESSION: 1. No mammographic evidence of malignancy. 2. Recommend routine screening mammography in one year. BI-RADS Category 1: Negative Reviewed, dictated and finalized at location A.
--- OUTSIDE RECORDS SUMMARY | 2024-09-08 16:03 | XMS_ITS | Continuity of Care Document ---
Author Organization [facility] Address [address] [place] [address] Phone Care Team Providers Care Arts Administrator Name Role Phone Paulino Quezada Unavailable Unavailable Procedures Procedure Date Eye Exam & Treatment Refraction Eye Exam & Treatment No Script Refraction Eye Exam & Treatment Advance Directives Directive Yes / No Effective Date File Name No Information Encounters Encounter Description Practice Location Reason(s) For Visit Diagnoses Date Provider Providers Copied on Encounter [facility], [address] [place] [address] [address], [place], [place], [id number], tel:[phone] [facility] No Information 1-201 0 Pilar Bob. [address] , [address], [place], [place], [facility], . tel:[phone] [facility], [address] [place] [address] [address], [place], [place], [id number], [place] tel:[phone] [facility] No Information 200 9 Pilar Bob. [address] [facility] [address], [address], [place], [place], [facility], . tel:[phone] [facility], [address] [place] [address] [address], [place], [place], [id number], tel:[phone] [facility] [address] No Information 2-200 8 Doipatricia Bob. [address] , [address], [place], [address], [place]. tel:[phone] Family History Family Member Type Diagnosis Age At Onset No Information Payers Payer name Insurance type Covered libertarian ID Authorrenaya mirzavera(s) [place] [id number] [employer] Benefit Plan [place] [id number] Social History Type Description Quantity Date Captured [...]
--- OUTSIDE RECORDS SUMMARY | 2024-09-08 16:03 | XMS_ITS | Encounter Summary ---
Author Organization [facility] Address [address] [place] [address] Care Team Providers Care Mat Machine Tender Name Role Phone Corimartinez Ninfa WONG Primary Care Provider [phone] Reason for Referral * Surgical (Routine) - New Request Specialty Diagnoses / Procedures Referred By Contac t Referred To Contact Diagnoses Lumbar facet arthropathy Procedures Case request operating room: [facility] LUMBAR [id number] Steffany Lerma MD [facility] [address] [place] [address] Phone: tel: fax: Referral ID Status Reason Start Date Expiration Date V isits Requested Visits Authorized [id number] New Request 11/25/2023 11/24/2024 1 1 Encounter Details Date Type Department Care Team (Late st Contact Info) Description 11/25/2023 Prep for Procedure [facility] [place], [place] [phone] [id number] Steffany Lerma MD [facility] [address] [place] [address] [phone] Social History Tobacco Use Types Packs/Day Years Used Date Smoking Tobacco: Former Cigarettes 0.5 15 1 977 - 1991 Alcohol Use Standard Drinks/Week Comments Yes 0 (1 standard drink = 0.6 oz pur e alcohol) socially PHQ-2 Answer Date Recorded Patient Health Questionnaire-2 Score 0 07/13/2022 Comments No Sex and Gender Information Value Date Recorded Sex Assigned at Female 06/29/2024 11:56 AM 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 Legal Sex Female 8:24 AM 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 Gender Identity Not on file Sexual Orientation Not on file documented as of this encounter Plan of Treatment Scheduled Orders Name Type Priority Associated Diagnoses Orde r Schedule Case request operating room: BLOCK [facility]AN[facility] LUMBAR [id number] Case Request Routine Lumbar facet arthropathy Once for 1 Occurrences starting 11/25/2023 until 11/25/2023 documented as of this encounter Visit Diagnoses Diagnosis Lumbar facet arthropathy- Primary Lumbosacral spondylosis without myelopathy documented in this encounter Care Teams Mat Machine Tender Relationship Specialty Start Date End Date Ninfa Roy NP [address] [id number] PCP - General NURSE PRACTITIONER 12/27/22 documented as of this encounter
--- OUTSIDE RECORDS SUMMARY | 2024-09-08 16:03 | XMS_ITS | Clinical Summary ---
Author Organization [facility] Address [address] [place] [address] Care Team Providers Care Manager Quality Systems Name Role Phone Ninfa Roy NP Primary Care Provider [phone] Allergies Active Allergy Reactions Criticality Noted Date Comments Levofloxacin Other (see comment) High 04/22/2015 Tape Rash Low 09/08/2021 Medications aspirin 81 MG chewable tablet daily. Acti ve magnesium gluconate (MAG-G) tablet every 12 (twelve) hours. Active levothyroxine (SYNTHROID) 75 MCG tablet Take 1 tablet (75 mcg total) by mouth daily. 04/04/2022 Active lisinopril (PRINIVIL) 20 MG tablet Take 1 tablet (20 mg total) by mouth daily. 03/07/2022 Active pantoprazole EC (PROTONIX) 40 MG tablet Take 1 tablet (40 mg total) by mouth every morning. 12/14/2021 Active hydroCHLOROthia zide (MICROZIDE) 12.5 MG tablet Take 1 tablet (12.5 mg total) by mouth daily. 04/04/2022 Active calcitriol (ROCALTROL) 0.25 MCG capsule Take 1 capsule (0.25 mcg total) by mouth daily. 04/23/2022 Active ELIQUIS 5 MG tablet Take 1 tablet (5 mg total) by mouth 2 (two) times daily. 2023 Active fluticasone propionate (FLONASE) 50 MCG/ACT nasal spray 2 sprays by Nasal route. 01/08/2023 Active traMADol (ULTRAM) 50 MG tabletIndicatio ns:Chronic Pain Take 1 tablet (50 mg total) by mouth every 6 (six) hours as needed for Pain. Indications: Chronic Pain 30 tablet 04/18/2023 Active HYDROcodone-juvenal taminophen (NORCO) 5-325 MG tabletIndicatio ns:Acute Pain < 7 Day Supply Take 1 tablet by mouth every 6 (six) hours as needed. Indications: Acute Pain < 7 Day Supply 20 tablet 04/27/2024 Active HYDROcodone-juvenal taminophen (NORCO) 5-325 MG tabletIndicatio ns:Acute Pain < 7 Day Supply Take 1 tablet by mouth every 6 (six) hours as needed. Indications: Acute Pain < 7 Day Supply 20 tablet 06/29/2024 Active rosuvastatin (CRESTOR) 5 MG tablet Take 1 tablet (5 mg total) by mouth nightly at bedtime. 06/13/2024 Active Active Problems Problem Noted Date Diagnosed Date Lumbar facet arthropathy 11/25/2023 Facet arthropathy, lumbar 12/27/2022 Overview (12/27/2022): Added automatically from request for surgery [id number] Resolved Problems Problem Noted Date Diagnosed Date Resolved Date SI (sacroiliac) joint dysfunction 06/25/2023 09/24/2023 Sacroiliitis 04/02/2023 09/24/2023 Overview (04/02/2023): Added automatically from request for surgery [id number] Encounters Date Type Department Care Team Description 06/29/2024 1:00 PM PHLEBOTOMIST PRN - 06/29/2024 1:20 PM PHLEBOTOMIST PRN Surgery [facility] [place] [address] [id number] Steffany Lerma MD RADIOFREQUENCY LUMBAR [id number] 06/29/2024 11:59 AM PHLEBOTOMIST PRN - 06/29/2024 1:33 PM PHLEBOTOMIST PRN Hospital Encounter [facility] [place] [address] [id number] Steffany Lerma MD Discharge Disposition: Home or Self Care (Routine Discharge) 06/29/2024 Travel from Last 3 Months Family History Medical History Relation Comments Heart Disease Brother Cancer Father Heart Disease Mother Stroke Mother Heart Disease Sister Stroke Sister Relation Status Comments Brother Father Mother Sister Alive Social History Tobacco Use Types Packs/Day Years Used Date Smoking Tobacco: Former Cigarettes 0.5 15 1 977 - 1991 Tobacco Cessation:Counseling Given: Not Answered Alcohol Use Standard Drinks/Week Comments Yes 0 (1 standard drink = 0.6 oz pur e alcohol) socially PHQ-2 Answer Date Recorded Patient Health Questionnaire-2 Score 0 07/13/2022 Comments No Sex and Gender Information Value Date Recorded Sex Assigned at Female 06/29/2024 11:56 AM PHLEBOTOMIST PRN Legal Sex Female 8:24 AM PHLEBOTOMIST PRN Gender Identity Not on file Sexual Orientation Not on file Last Filed Vital Signs Vital Sign Reading Time Taken Comments Blood Pressure 155/81 06/29/2024 1:21 PM PHLEBOTOMIST PRN Pulse 57 06/29/2024 1:21 PM PHLEBOTOMIST PRN Temperature 36.7 C (98.1 F) 06/29/2024 12:36 PM PHLEBOTOMIST PRN Respiratory Rate 18 06/29/2024 1:21 PM PHLEBOTOMIST PRN Oxygen Saturation 97% 06/29/2024 1:21 PM PHLEBOTOMIST PRN Inhaled Oxygen Concentration - - Weight 108.9 kg (240 lb) 06/29/2024 12:36 PM PHLEBOTOMIST PRN Height 152.4 cm (5') 06/29/2024 12:36 PM PHLEBOTOMIST PRN Body Mass Index 46.87 06/29/2024 12:36 PM PHLEBOTOMIST PRN Plan of Treatment Health Maintenance Due Date Last Done Comments Annual Medicare Wellness Visit 2007 Dexa Scan (General) 2007 Zoster Vaccines (2 of 3) 07/29/2008 06/03/2008 RSV Immunization or 60+ Years (1 - 1-dose 75+ series) 2017 COVID-19 Vaccine ( season) 2024 04/03/2021, 08/02/2020, 07/13/2020, Additional history exists PHQ-2 (Physician Eland) 06/03/2024 DTaP, Tdap and Td Vaccines (2 - Td or Tdap) 08/07/2026 08/07/2016 Pneumococcal Vaccine: 65+ Years Completed 05/19/2015, 05/17/2015, 01/01/2011, Additional history exists Meningococcal B Vaccine Aged Out No l onger eligible based on patient's age to complete this topic Meningococcal Vaccine Aged Out No sheri farhad eligible based on patient's age to complete this topic RSV Immunizations Under 20 Months Aged Out No longer eligible based on patient's age to complete this topic Procedures Procedure Name Priority Date/Time Associated Diagnosis Comments LUMBAR OR SACRAL SINGLE FACET JOINT 06/29/2024 1:06 PM PHLEBOTOMIST PRN Facet arthropathy, lumbar XR [facility] Today 06/29/2024 12:06 PM PHLEBOTOMIST PRN from Last 3 Months Results * XR [facility] (06/29/2024 12:06 PM PHLEBOTOMIST PRN) Narrative Radiology, Technologist - 06/29/2024 12:06 PM PHLEBOTOMIST PRN This report does not contain a radiologist's interpretation. Please review associated procedure and/or operative report. Steffany Lerma MD GENERAL IMAGING Final Result from Last 3 Months [facility] Care Teams Manager Quality Systems Relationship Specialty Start Date End Date Ninfa Roy NP [address] [phone] PCP - General NURSE PRACTITIONER 12/27/22
--- OUTSIDE RECORDS SUMMARY | 2024-09-08 16:03 | XMS_ITS | CONTINUITY OF CARE DOCUMENT ---
Author Name danielle, danielle Address Unknown Organization [facility] Address [address] [place] [address] Phone [phone] Care Team Providers Care Tours Captain Name Role Phone Darren PHILLIPS, Diogo Unavailable ADRIANE ERAZO Unavailable ADRIANE ERAZO Unavailable PROBLEMS Condition Status Date Provider Notes Abnormal cardiovascular stress test active Diogo Banks MD S/P Implantable Loop Recorder-[employer] ( MRI safe) active Jeane Duncan OBESITY active Farzana Osorio HISTORY OF TOBACCO ABUSE active Farzana Herrera t HYPOTHYROIDISM active Farzana Osorio Bradycardia active Den Archer MD GERD completed - Den Archer MD Hyperlipidemia active Den Archer MD CAD active Sara Cape 04/14 NUC NL 1 06/12 NUC NL- 8 06 CAROTID NEG STENT- RCA VISION NUC ISCHEMIA CHEST PAIN nlstress test 05/17 active Hreb Lindsay MD Family History of Hypertension: completed - Herb Lindsay MD Renal failure, chronic active Herb Lindsay MD Syncope active Kiara Ventimig rajesh ARCHIVIST ECONOMIC HISTORY DVT active Reji Wilson MD Pulmonary embolism active Reji Wilson MD Lower extremity edema, bilateral active Reji Wilson MD Microalbuminuria active Den Archer MD Presence of implantable loop recorder active Den Archer MD ENCOUNTERS Date Type Provider Location Encounter Diag nosis - In-person encounter Office Visit Diogo Banks MD [facility] - In-person encounter Office Visit Diogo Banks MD [facility] - In-person encounter Office Visit Diogo Banks MD [facility] - In-person encounter Office Visit Diogo Banks MD [facility] - In-person encounter Office Visit Den Archer MD [facility] - In-person encounter Office Visit Den Archer MD [facility] - In-person encounter Office Visit Den Archer MD [facility] MicroalbuminuriaPresence of implantable loop recorder - In-person encounter Office Visit Reji Wilson MD [facility] DVTPulmonary embolismLower extremity edema, bilateral - In-person encounter Office Visit Den Archer MD [facility] - In-person encounter Office Visit Diogo Banks MD [facility] Syncope - In-person encounter Office Visit Den Archer MD [facility] - In-person encounter Office Visit Den Archer MD [facility] - In-person encounter Office Visit Den Archer MD [facility] - In-person encounter Office Visit Den Archer MD [facility] - In-person encounter Office Visit Den Archer MD [facility] - In-person encounter Office Visit Den Archer MD [facility] - In-person encounter Office Visit Den Archer MD [facility] - In-person encounter Office Visit Den Archer MD [facility] CAD - In-person encounter Office Visit Herb Lindsay MD [facility] CHEST PAIN nlstress test 05/17Family History of Hypertension:Renal failure, chronic - In-person encounter Office Visit Alessandro Watkins MD [facility] CHEST PAIN nlstress test 05/17 - In-person encounter Office Visit Den Archer MD [facility] BradycardiaHyperlipidemia - In-person encounter Office Visit Den Archer MD [facility] - In-person encounter Office Visit Den Archer MD [facility] - In-person encounter Office Visit Den Archer MD [facility] GERD - In-person encounter Office Visit Den Archer MD [facility] - In-person encounter Office Visit Den Archer MD [facility] - In-person encounter Office Visit Den Archer MD [facility] HyperlipidemiaCHEST PAIN nlstress test 05/17 - In-person encounter Office Visit Den Archer MD [facility] - In-person encounter Office Visit Herb Lindsay MD [facility] CHEST PAIN nlstress test 05/17 - In-person encounter Office Visit Den Archer MD [facility] - In-person encounter Office Visit Den Archer MD [facility] - In-person encounter Office Visit Den Archer MD [facility] VITAL SIGNS Date Observation Value Provider Body Mass Index (Ratio) 40.16 kg/m2 Mik Banks MD blood pressure, diastolic 68 mm[Hg] Ghazala Gilliam blood pressure, systolic 123 mm[Hg] Marivel Gilliam oxygen saturation, oximetry 97 % Sherrie Gilliam pulse rate 92 /min Sherrie Gilliam respiratory rate E&M 12 /min Sherrie Gilliam weight E&M 234 [lb_av] Sherrie Gilliam height E&M 64 [in_i] Sherrie Gilliam blood pressure, cuff size regular Ghazala Gilliam Body Mass Index (Ratio) 41.19 kg/m2 Mik Banks MD blood pressure, diastolic 87 mm[Hg] Ghazala Gilliam blood pressure, systolic 165 mm[Hg] Marivel barfield Gilliam oxygen saturation, oximetry 96 % Sherrie Gilliam pulse rate 74 /min Sherrie Gilliam respiratory rate E&M 14 /min Sherrie Gilliam weight E&M 240 [lb_av] Sherrie Gilliam height E&M 64 [in_i] Sherrie Gilliam blood pressure, cuff size large Ghazala Gilliam Body Mass Index (Ratio) 40.16 kg/m2 Mik Banks MD blood pressure, diastolic 73 mm[Hg] Yesenia nkLogic blood pressure, systolic 123 mm[Hg] Faby kLog blood pressure, cuff size large Daniel scruggs blood pressure, diastolic 73 mm[Hg] [facility] blood pressure, systolic 123 mm[Hg] [facility] pulse rate 79 /min [facility] oxygen saturation, oximetry 93 % [facility] respiratory rate E&M 16 /min [facility] weight E&M 234 [lb_av] [facility] height E&M 64 [in_i] [facility] Body Mass Index (Ratio) 39.99 kg/m2 Mik Banks MD blood pressure, cuff size regular [facility] blood pressure, diastolic 81 mm[Hg] [facility] blood pressure, systolic 141 mm[Hg] [facility] pulse rate 59 /min [facility] respiratory rate E&M 12 /min [facility] oxygen saturation, oximetry 96 % [facility] weight E&M 233 [lb_av] [facility] height E&M 64 [in_i] [facility] Body Mass Index (Ratio) 41.36 kg/m2 Yasmani Archer MD pulse rate 91 /min Salina Mota respiratory rate E&M 20 /min Salina Mota blood pressure, diastolic 84 mm[Hg] Abbey Mota oxygen saturation, oximetry 96 % Salina Mota blood pressure, systolic 135 mm[Hg] Kala Mota blood pressure, cuff size large Abbey Mota weight E&M 241 [lb_av] Salina Mota height E&M 64 [in_i] Salina Mota Body Mass Index (Ratio) 40.50 kg/m2 Yasmani Archer MD blood pressure, diastolic 72 mm[Hg] St fabian Garcia blood pressure, systolic 140 mm[Hg] Marc paulson Jose oxygen saturation, oximetry 93 % Mulu Jose pulse rate 68 /min Mulu Jose weight E&M 236 [lb_av] Mulu Jose respiratory rate E&M 18 /min Mulu Fadi figueredo height E&M 64 [in_i] Mulu Jose Body Mass Index (Ratio) 39.13 kg/m2 Yasmani Archer MD blood pressure, diastolic 95 mm[Hg] Franny Macedo blood pressure, systolic 163 mm[Hg] Castro joanna Macedo oxygen saturation, oximetry 95 % Lisbeth Macedo respiratory rate E&M 18 /min Lisbeth Macedo pulse rate 92 /min Lisbeth Macedo weight E&M 228 [lb_av] Lisbeth Macedo height E&M 64 [in_i] Lisbeth Macedo Body Mass Index (Ratio) 39.48 kg/m2 Nanette Wilson MD oxygen saturation, oximetry 95 % Sonia Moses pulse rate 101 /min Sonia cuveas blood pressure, diastolic 115 mm[Hg] St ephanie Josué blood pressure, systolic 171 mm[Hg] Last phakaren Moses respiratory rate E&M 16 /min Duy phuong Holcombe blood pressure, cuff size large St ephanie Josué weight E&M 230 [lb_av] Soniadarian Conn n height E&M 64 [in_i] Soniadarian Conn n Body Mass Index (Ratio) 38.62 kg/m2 Yasmani Archer MD blood pressure, diastolic 77 mm[Hg] St ephanijamie Moses blood pressure, systolic 148 mm[Hg] Last ragsdale Holcombe oxygen saturation, oximetry 96 % Sonia Holcombe pulse rate 83 /min Sonia Conn n respiratory rate E&M 16 /min Duy baca [place] weight E&M 225 [lb_av] Sonia Conn n blood pressure, cuff size large St dominguez [place] height E&M 64 [in_i] Sonia Paynems n Body Mass Index (Ratio) 37.93 kg/m2 Sheldon da Ventimiglia ARCHIVIST ECONOMIC HISTORY blood pressure, diastolic 86 mm[Hg] Li nkLogic blood pressure, systolic 142 mm[Hg] Faby kLogic blood pressure, diastolic 86 mm[Hg] St angelica Holcombe blood pressure, systolic 142 mm[Hg] Last ragsdale [place]combe oxygen saturation, oximetry 96 % Sonia Holcombe pulse rate 102 /min Sonia Conn n weight E&M 221 [lb_av] Sonia Paynems n height E&M 64 [in_i] Sonia Paynems n respiratory rate E&M 16 /min Duy baca Holcombe blood pressure, cuff size large St dominguez [place] Body Mass Index (Ratio) 40.75 kg/m2 Yasmani Archer MD blood pressure, cuff size large Ta robb Van blood pressure, diastolic 84 mm[Hg] Ta robb Van blood pressure, systolic 119 mm[Hg] Everardo Smith oxygen saturation, oximetry 92 % Naomi Smith respiratory rate E&M 16 /min Naomi Van pulse rate 86 /min Naomi Van weight E&M 237.4 [lb_av] Naomi Luis height E&M 64 [in_i] Naomi Creswell Body Mass Index (Ratio) 36.73 kg/m2 Yasmani Archer MD blood pressure, diastolic 77 mm[Hg] Yesenia nkLogic blood pressure, systolic 126 mm[Hg] Faby kLogic blood pressure, cuff size regular Dajuan Brooksby blood pressure, diastolic 77 mm[Hg] Dajuan Brooksby blood pressure, systolic 126 mm[Hg] Jenni Brooksby oxygen saturation, oximetry 94 % Joselyn Florentino pulse rate 65 /[facility] E&M 18 /min Joselyn Florentino weight E&M 214 [lb_av] Joselyn Florentino height E&M 64 [in_i] [facility] Body Mass Index (Ratio) 39.99 kg/m2 Yasmani Archer MD respiratory rate E&M 16 /min [facility] blood pressure, diastolic 78 mm[Hg] To [facility] blood pressure, systolic 132 mm[Hg] [facility] pulse rate 65 /min [facility] oxygen saturation, oximetry 95 % [facility] weight E&M 233 [lb_av] [facility] height E&M 64 [in_i] [facility] Body Mass Index (Ratio) 39.30 kg/m2 Yasmani Archer MD blood pressure, diastolic 80 mm[Hg] Er ica Lashell blood pressure, systolic 140 mm[Hg] Kamla corina Lobo oxygen saturation, oximetry 96 % Olivia Lobo pulse rate 83 /min Olivia Ann weight E&M 229 [lb_av] Olivia Ann height E&M 64 [in_i] Olivia Ann Body Mass Index (Ratio) 40.68 kg/m2 Yasmani Archer MD blood pressure, diastolic 70 mm[Hg] [facility], systolic 110 mm[Hg] Delvin barros Nash oxygen saturation, oximetry 92 % [facility] rate E&M 16 /min [facility] pulse rate 70 /min [facility] weight E&M 237 [lb_av] [facility] blood pressure, resting No Kill een Nash height E&M 64 [in_i] [facility] Body Mass Index (Ratio) 42.80 kg/m2 Yasmani Archer MD blood pressure, diastolic 79 mm[Hg] Jordy Lockett blood pressure, systolic 171 mm[Hg] Fifi Lockett oxygen saturation, oximetry 95 % Kelsey Lockett respiratory rate E&M 18 /min Pantera Lockett pulse rate 66 /min Kelsey galeano weight E&M 249.4 [lb_av] Kelsey oleary height E&M 64 [in_i] Kelsey galeano Body Mass Index (Ratio) 45.59 kg/m2 Yasmani Archer MD blood pressure, diastolic 83 mm[Hg] Jordy Lockett blood pressure, systolic 153 mm[Hg] Fifi Lockett oxygen saturation, oximetry 96 % Kelsey Lockett respiratory rate E&M 18 /min Pantera Lockett pulse rate 75 /min Kelsey galeano weight E&M 265.6 [lb_av] Kelsey oleary height E&M 64 [in_i] Kelsey galeano blood pressure, diastolic 80 mm[Hg] Sherif briceno Celso blood pressure, systolic 146 mm[Hg] Jenny giles Celso pulse rate 66 /min Missy Ritchie er oxygen saturation, oximetry 96 % Missy Celso respiratory rate E&M 16 /min Missy Mott nicole Body Mass Index (Ratio) 44.97 kg/m2 Fallon miguelito Celso weight E&M 262 [lb_av] Missy Valentinopauljamie er blood pressure, diastolic 83 mm[Hg] Me sana Gallego blood pressure, systolic 160 mm[Hg] Connie sudha Gallego pulse rate 88 /min Yun Gallego oxygen saturation, oximetry 96 % Yun Gallego respiratory rate E&M 15 /min Yun Gallego Body Mass Index (Ratio) 43.25 kg/m2 [facility] weight E&M 252 [lb_av] Yun Gallego blood pressure, diastolic, left arm 87 mm [Hg] Yun Jarad blood pressure, systolic, left arm 161 mm [Hg] Yun Jarad blood pressure, diastolic, right arm 84 m m[Hg] Yun Jarad blood pressure, systolic, right arm 165 m m[Hg] Yun Jarad respiratory rate E&M 18 /min Yun Jarad pulse rate 85 /min Yun Jarad oxygen saturation, oximetry 97 % Yun Jarad blood pressure, diastolic 87 mm[Hg] Me sana Jarad blood pressure, systolic 161 mm[Hg] Connie sudha Jarad Body Mass Index (Ratio) 43.46 kg/m2 [facility] Jarad weight E&M 253.2 [lb_av] Yun Jarad pulse rate, sitting, right 67 /min Yandy denson Celso orthostatic blood pr essure, sitting, right arm, diastolic 82 Missy Celso orthostatic blood pr essure, sitting, right arm, systolic 190 Missy Celso height E&M 64 [in_i] Missy Erma steel height in centimeters E&M 162.56 cm Ke kaity Celso blood pressure, diastolic 88 mm[Hg] Jordy Banerjee Levy blood pressure, systolic 193 mm[Hg] Fifi Bazzi Levy pulse rate 62 /min Kelsey Johnston tonyavera oxygen saturation, oximetry 97 % Kelsey Lockett respiratory rate E&M 18 /min Pantera pierce Lockett Body Mass Index (Ratio) 46.34 kg/m2 Dona Encarnacion Lockett weight E&M 270 [lb_av] Kelsey Johnston tonyavera Body Mass Index (Ratio) 44.11 kg/m2 Anea dami Daniel blood pressure, diastolic 75 mm[Hg] An eatris Daniel blood pressure, systolic 122 mm[Hg] Ane atris Daniel pulse rate 83 /min Aneatris Daniel oxygen saturation, oximetry 97 % Aneatrjordy Sanchez respiratory rate E&M 17 /min Aneatri s Daniel weight E&M 257 [lb_av] Aneatrjordy Sanchez blood pressure, diastolic 67 mm[Hg] Daniel Tellez RN blood pressure, systolic 115 mm[Hg] Dante Tellez RN pulse rate 67 /min Dante Tellez RN oxygen saturation, oximetry 97 % Dante Tellez RN respiratory rate E&M 18 /min Dante rene RN Body Mass Index (Ratio) 45.13 kg/m2 Dante Tellez RN weight E&M 262 [lb_av] Dante Tellez ALY Body Mass Index (Ratio) 46.69 kg/m2 Dante Kesslerfaustino LU blood pressure, diastolic 76 mm[Hg] Daniel cuevas Tellez RN blood pressure, systolic 125 mm[Hg] Dante Tellez ALY pulse rate 63 /min Dante Tellez ALY oxygen saturation, oximetry 94 % Dante Kesslerfaustino LU respiratory rate E&M 16 /min Dante rene RN weight E&M 271 [lb_av] Dante Tellez ALY Body Mass Index (Ratio) 47.37 kg/m2 Dante Kesslerfaustino LU blood pressure, diastolic 71 mm[Hg] Daniel cuevas Tellez RN blood pressure, systolic 152 mm[Hg] Dante Kesslerfaustino LU pulse rate 50 /min Dante Kesslerfaustino LU oxygen saturation, oximetry 95 % Dante Kesslerfaustino LU respiratory rate E&M 17 /min Dante rene RN weight E&M 275 [lb_av] Dante Tellez ALY height E&M 64 [in_i] Dante Kesslerfaustino LU blood pressure, diastolic 84 mm[Hg] Page mathias Manacop blood pressure, systolic 142 mm[Hg] Rod doll Manacop pulse rate 64 /min Wayne Manacop oxygen saturation, oximetry 96 % Wayne Manacop respiratory rate E&M 16 /min Wayne Manacop weight E&M 279 [lb_av] Wayne Manacop blood pressure, diastolic 82 mm[Hg] Daniel cuevas Tellez RN blood pressure, systolic 162 mm[Hg] Dante Kesslerfaustino LU pulse rate 60 /min Thelma O'Ike oxygen saturation, oximetry 95 % Thelma O'Ike respiratory rate E&M 16 /min Thelma O'Ike weight E&M 274 [lb_av] Thelma O'Ike blood pressure, diastolic 70 mm[Hg] Bowen murillo Robert blood pressure, systolic 133 mm[Hg] Richard easton Robert pulse rate 67 /min Brittney Robert oxygen saturation, oximetry 93 % Brittney Robert respiratory rate E&M 16 /min Umair Jones weight E&M 268 [lb_av] Brittney Yanis blood pressure, diastolic, right arm 88 m m[Hg] Wayne Manacop blood pressure, systolic, right arm 168 m m[Hg] Wayne Manacop blood pressure, diastolic 88 mm[Hg] Page mathias Manacop blood pressure, systolic 168 mm[Hg] Rod doll [place]acop pulse rate 70 /min [facility], oximetry 95 % Wayne Manacop respiratory rate E&M 16 /min Wayne Manacop weight E&M 262 [lb_av] Wayne Riversideacop blood pressure, diastolic 85 mm[Hg] Daniel Tellez RN blood pressure, systolic 152 mm[Hg] Dante Tellez RN pulse rate 67 /min Dante Tellez RN oxygen saturation, oximetry 97 % Dante Tellez RN respiratory rate E&M 16 /min Dante rene RN weight E&M 264 [lb_av] Dante Tellez RN blood pressure, diastolic 76 mm[Hg] Daniel Tellez RN blood pressure, systolic 146 mm[Hg] Dante Tellez RN pulse rate 55 /min Dante Tellez RN oxygen saturation, oximetry 96 % Dante Tellez RN respiratory rate E&M 18 /min Dante rene RN weight E&M 256 [lb_av] Dante Tellez RN blood pressure, diastolic 80 mm[Hg] Te tisha Osorio blood pressure, systolic 143 mm[Hg] Ter i Devon pulse rate 66 /min Farzana Osorio oxygen saturation, oximetry 95 % Farzana Osorio respiratory rate E&M 16 /min Farzana harrington weight E&M 268 [lb_av] Farzana Osorio blood pressure, diastolic 67 mm[Hg] Yesenia michaelHeladio blood pressure, systolic 124 mm[Hg] Faby Interiano blood pressure, diastolic 67 mm[Hg] Yesenia Morfinjenifer blood pressure, systolic 124 mm[Hg] Faby Daybanner ALLERGIES Allergy Name Onset Date Reaction Criticality Status LEVAQUIN nausea, near-syncope Low Criticality active ADHESIVE TAPE Low Criticality active RESULTS Date Observation Value Provider Reference Range Interpretation Location triglyceride, target level 150 mg/dL Den Archer MD HDL cholesterol, serum, target level 40 mg/dL Den Archer MD LDL target level 100 mg/dL Den Archer MD cholesterol, target level 200 mg/dL Den Archer MD calcium, serum 9.0 mg/dL Link[facility] 8.6-10.4 Normal carbon dioxide, venous blood 26 mmol/L [facility] 21-33 Normal chloride, serum 103 mmol/L [facility] 98-110 Normal potassium, serum 4.3 mmol/L [facility] 3.5-5.3 Normal sodium, serum 139 mmol/L [facility] 135-146 Normal urea nitrogen/creatinine ratio, serum 28 (calc) [facility] 6-22 High Estimated Glomerular Filtration Rate (calc) 64 mL/min/{1 .73_m2} [facility] > OR = 60 Normal creatinine, serum 1.03 mg/dL [facility] 0.60-0.93 High urea nitrogen, blood 29 mg/dL [facility] 7-25 High blood glucose, random 88 mg/dL [facility] 65-99 Normal lipoprotein, beta, serum, point, quantitative, calculated 62 mg/dL [facility] cholesterol, serum 137 mg/dL [facility] thyroid stimulating hormone, serum 0.07 u[IU]/mL [facility] alanine aminotransferase (SGPT), serum 13 1/L [facility] aspartate aminotransferase (SGOT), serum 14 1/L [facility] creatinine, serum 0.83 mg/dL [facility] potassium, serum 4.2 mmol/L [facility] sodium, serum 141 mmol/L [facility] HISTORY OF MEDICATION USE Medication Status Instructions Dates Provider Indications Com ments amlodipine 5 mg tablet active TAKE 1 TABLET DAILY (DUE FOR FOLLOW UP) 01/16 Breann Luna calcitriol 0.25 mcg capsule active 1 capsule by mouth once a day Cecilia John NP lisinopril 40 mg tablet active TAKE 1 TABLET BY MOUTH EVERY DAY Karen Welch amlodipine 5 mg tablet completed TAKE 1 TABLET DAILY (DUE FOR FOLLOW UP) 01/25 - 10/21 Cecilia John NP hydrochlorothiazide 25 mg tablet active Take 1 tablet by mouth once a day 12/19 Missy Houston hydrochlorothiazide 25 mg tablet completed TAKE 1 TABLET BY MOUTH EVERY DAY 09/11 - 12/19 Missy Houston aspirin 81 mg tablet,delayed release (DR/EC) active Take 1 tablet by mouth once a day Karen Yuri Eliquis DVT-PE Treat 30D Start 5 mg (74 tabs) tablets,dose pack completed Take by mouth as directed 2 tab PO twice daily for 7 days, then take 1 tab PO twice daily 08/20 - 08/20 Karen Yuri Eliquis DVT-PE Treat 30D Start 5 mg (74 tabs) tablets,dose pack completed Take by mouth as directed 2 tab PO twice daily for 7 days, then take 1 tab PO twice daily - 08/20 Karen Yuri hydrochlorothiazide 25 mg tablet completed Take 1 tablet by mouth once a day - 09/11 Anahi Leiva Jardiance 10 mg tablet completed Take 1 tablet by mouth once a day 08/10 - 08/20 Karen Yuri Eliquis 5 mg tablet active TAKE 1 TABLE T BY MOUTH TWICE DAILY Karen Yuri calcitriol 0.25 mcg capsule completed Take 1 capsule by mouth once a day 07/10 - 06/23 Maggy Lua DIRECTOR OF [employer]PERATIONS FOR THER[employer] #90, 90 days supply, Prescribed by ADRIANE GIANG, Filled 10/27/2020 levothyroxine 75 mcg tablet active Take 1 tablet by mouth once a day 11/14 Joselyn Good #90, 90 days supply, Prescribed by ADRIANE GIANG, Filled 11/14/2020 rosuvastatin 5 mg tablet active 1 tablet once a day 10/05 Eulalia Nguyen meloxicam 15 mg tablet completed Take 1 tablet once a day 09/04 - 08/10 Cecilia John NP magnesium oxide 400 mg magnesium tablet active once a day Kelsey Lockett tramadol 50 mg tablet active 1 tablet twice a day Kelsey Lockett ISOSORBIDE MONONITRATE ER 30 MG ORAL TABLET EXTENDED RELEASE 24 HOUR completed one tab. daily 06/06 - 12/19 Kelsey Lockett RANEXA 500 MG ORAL TABLET EXTENDED RELEASE 12 HOUR completed ONE TAB. TWICE DAILY for chronic angina - 06/06 Herb Lindsay MD Nitrostat 0.4 mg tablet, sublingual active One tab. under tongue as needed. May repeat twice in 10 minutes. Karen Yuri hydrochlorothiazide 12.5 mg tablet completed once a day - 08/20 Karen Yuri MULTIVITAMIN ADULTS 50+ ORAL TABLET completed once daily - 12/19 Kelsey Lockett LEVOTHYROXINE SODIUM 125 MCG ORAL TABLET completed take 1 tab once daily 09/04 - 12/16 Joselyn Good CELEBREX 100 MG ORAL CAPSULE completed 1 tab daily - 12/19 Kelsey Lockett EQL COQ10 CAPS completed 400 mg once a day - 08/10 Cecilia John NP CALCIUM 600 MG ORAL TABLET completed one tablet daily - 07/09 Dante Tellez RN lisinopril 40 mg tablet completed Take 1 tablet by mouth once a day 07/06 - Anahi Dixonhiqi TYLENOL WITH CODEINE #3 TABLET completed take as needed - 12/19 Kelsey Lockett KLOR-CON M10 10 MEQ ORAL TABLET EXTENDED RELEASE completed 1 TAB. DAILY - 06/16 [facility] COQ-10 CAPS completed daily - 06/16 [facility] HAIR AND NAIL VITAMINS WITH SILICA AND BIOTIN completed as directed - 06/11 Dante Tellez RN VITAMIN E CAPSULE completed 1 capsule by mouth daily - 06/11 Dante Tellez RN OSTEO BI-FLEX REGULAR STRENGTH TABLET completed 1 tablet by mouth daily - 12/19 Kelsey Lockett ACIPHEX 20 MG ORAL TABLET DELAYED RELEASE completed 1 tablet by mouth daily - 06/11 Dante Tellez RN VITAMIN D TABLET completed 12371 once a day - 07/19 Kiara Ventimiglia ARCHIVIST ECONOMIC HISTORY Fish Oil 360-1,200 mg capsule completed 1 tablet by mouth once a day - 07/19 Kiara Ventimiglia ARCHIVIST ECONOMIC HISTORY DARVOCET-N 100 100-650 MG TABS completed 1 tab by mouth at bedtime - 12/19 Wayne Cali CELEBREX 200 MG ORAL CAPSULE completed 1 tab by mouth daily - 07/09 Dnate Tellez RN [facility] PRODIOTIC SUPPLEMENT completed as directed - 10/27 Brittney Jones PROPOXYPHENE N-APAP 100-650 MG TABS completed 1 tablet by mouth every 6 hours as needed - 10/27 Brittney Jones CRESTOR 5 MG ORAL TABLET completed ONE TAB. DAILY - 12/19 Kelsey Lockett NITROLINGUAL 0.4 MG/SPRAY TRANSLINGUAL SOLUTION completed ONE SPRAY PRN 07/13 - 12/19 Wayne Cali ZANTAC 150 MG ORAL TABLET completed ONE TAB TWICE DAILY - 07/14 Dante Tellez RN ASPIRIN 81 MG ORAL TABLET completed 1 tablet once a day - 08/10 Cecilia John NP MULTIVITAMINS ORAL CAPSULE completed ONE TAB. DAILY - 12/19 Wayne Jose Ldemetris OSTEO BI-FLEX ADV TRIPLE ST ORAL TABLET completed - 12/19 Wayne Manacorosa m VYTORIN 10-20 MG ORAL TABLET completed daily - 07/14 Dante Tellez RN FISH OIL CAPSULE completed daily - 12/19 Wayne Jose Lacorosa m FLAX SEED OIL CAPSULE completed daily - 12/19 Wayne Jose Lacorosa m CINNAMON CAPSULE completed 1 gm daily - 12/19 Wayne Domingoacop ACIPHEX 20 MG ORAL TABLET DELAYED RELEASE completed daily - 07/05 Dante Tellez RN LEVOXYL 137 MCG ORAL TABLET completed one tablet daily - 12/19 Yun Abraham TRIAMTERENE-HCTZ 37.5-25 MG ORAL TABLET completed daily - 12/19 Kelsey Lockett SOCIAL HISTORY Date Observation Value Provider personal history of marijuana use no Diogo Banks MD drug use no Diogo Aponte alcohol use no Diogo Aponte passive cigarette sm francisco j exposure no Diogo Banks MD smoking, year quit 1990 Diogo deshpande MD number of years as a smoker 10 years or m ore Diogo Banks MD smoking history, tot al pack/year 18 Diogo Banks MD cigarette use yes Diogo Banks MD smoking status Former smoker Diogo cuevas MD personal history of marijuana use no Diogo Banks MD drug use no Diogo Aponte alcohol use no Diogo Aponte passive cigarette sm francisco j exposure no Diogo Banks MD smoking, year quit 1990 Diogo deshpande MD number of years as a smoker 10 years or m ore Diogo Banks MD smoking history, tot al pack/year 18 Diogo Banks MD cigarette use yes Diogo Banks MD smoking status Former smoker Diogo cuevas MD personal history of marijuana use no Cecilia John [employer] cigarette use yes Cecilia John [employer] drug use no Cecilia John [employer] alcohol use no Cecilia Bennettri [employer] passive cigarette sm francisco j exposure no Cecilia Bennettri [employer] smoking status Former smoker Cecilia Bennett ri [employer] social history E&M Marital Statu s: L sonia with family/friends E thnicity: B enefits of tobacco cessation reviewed. S moking History: Rosa M ramírez has never smoked. Maggy Lua NP social history reviewed E&M revi ewed - no changes required Maggy Lua NP seatbelt usage 100 % Den Archer MD physical exercise, frequency, days per week yes Den Archer MD caffeine use, averag e drinks per day yes Den Archer MD passive cigarette sm francisco j exposure no Den Archer MD smoking status Former smoker Den Archer MD social history reviewed E&M revi ewed - no changes required Den Archer MD social history E&M Marital Statu s: L sonia with family/friends E thnicity: B enefits of tobacco cessation reviewed. Smoking History: Rosa M ramírez has never smoked. Den Archer MD social history E&M Marital Statu s: L sonia with family/friends E thnicity: B enefits of tobacco cessation reviewed. Smoking History: Rosa M ramírez is a former smoker. Den Archer MD social history reviewed E&M revi ewed - no changes required Den Archer MD seatbelt usage 100 % Mulu Garcia physical exercise, frequency, days per week yes Mulu Jose caffeine use, averag e drinks per day yes Mulu Jose passive cigarette sm francisco j exposure no Mulu Jose smoking status Former smoker Mulu Garcia social history E&M Marital Statu s: L sonia with family/friends E thnicity: B enefits of tobacco cessation reviewed. Smoking History: Rosa M ramírez is a former smoker. Den Archer MD seatbelt usage 100 % Den Archer MD physical exercise, frequency, days per week yes Dne Archer MD caffeine use, averag e drinks per day yes Den Archer MD passive cigarette sm francisco j exposure no Den Archer MD smoking status Former smoker Den Archer MD social history reviewed E&M revi ewed - no changes required Den Archer MD social history reviewed E&M revi ewed - no changes required Cecilia John NP seatbelt usage 100 % Sonia domingo physical exercise, frequency, days per week yes Sonia Moses caffeine use, averag e drinks per day yes Sonia Moses passive cigarette sm francisco j exposure no Sonia Moses smoking status Former smoker Cecilia giles NP social history E&M Marital Statu s: L sonia with family/friends E thnicity: B enefits of tobacco cessation reviewed. Smoking History: Rosa M ramírez has never smoked. Den Archer MD social history reviewed E&M revi ewed - no changes required Den Archer MD seatbelt usage 100 % Sonia Loh man physical exercise, frequency, days per week yes Sonia Moses caffeine use, averag e drinks per day yes Sonia Moses passive cigarette sm francisco j exposure no Sonia Moses smoking status Never smoker Sonia domingo drug use no Kiara Ventimig rajesh [employer] alcohol use no Kiara Ventimig rajesh [facility] smoking status Never smoker Kiara Ventim iglia [facility] drug use no Den Archer MD alcohol use no Den Archer MD seatbelt usage 100 % Den Archer MD physical exercise, frequency, days per week yes Den Archer MD caffeine use, averag e drinks per day yes Den Archer MD passive cigarette sm francisco j exposure no Den Archer MD smoking status Former smoker Den Archer MD social history reviewed E&M revi ewed - no changes required Den Archer MD social history E&M Marital Statu s: L sonia with family/friends E thnicity: B enefits of tobacco cessation reviewed. Smoking History: Rosa M ramírez has never smoked. Den Archer MD drug use no Den Archer MD alcohol use no Den Archer MD smoking status Former smoker Den Archer MD social history E&M Marital Statu s: L sonia with family/friends E thnicity: B enefits of tobacco cessation reviewed. Smoking History: Rosa M ramírez is a former smoker. Den Archer MD social history reviewed E&M revi ewed - no changes required Den Archer MD social history reviewed E&M revi ewed - no changes required Den Archer MD social history E&M Marital Statu s: L sonia with family/friends E thnicity: B enefits of tobacco cessation reviewed. Smoking History: P atient is a former smoker. Den Archer MD smoking status Former smoker [facility] seatbelt usage 100 % [facility] physical exercise, frequency, days per week yes [facility] caffeine use, averag e drinks per day yes [facility] passive cigarette sm francisco j exposure no [facility] social history E&M Marital Statu s: L sonia with family/friends E thnicity: B enefits of tobacco cessation reviewed. Smoking History: Rosa M ramírez is a former smoker. Den Archer MD seatbelt usage 100 % Olivia Sprague physical exercise, frequency, days per week yes Olivia Lobo caffeine use, averag e drinks per day yes Oliiva Lobo passive cigarette sm francisco j exposure no Olivia Lobo smoking status Former smoker Olivia Morales social history reviewed E&M revi ewed - no changes required Olivia Lobo social history reviewed E&M revi ewed - no changes required Den Archer MD social history E&M Marital Statu s: L sonia with family/friends E thnicity: B enefits of tobacco cessation reviewed. Smoking History: Rosa M ramírez is a former smoker. Den Archer MD seatbelt usage 100 % [facility] physical exercise, frequency, days per week yes [facility] alcohol use, average drinks per day none Beaver [place]ueger alcohol use no [place] [place] caffeine use, averag e drinks per day yes Gómez Krueger drug use no Gómez Krueger passive cigarette sm francisco j exposure no [facility] status [facility]belt usage 100 % Analilia golden physical exercise, frequency, days per week yes Analilia Romero alcohol use, average drinks per day none Analilia Romero alcohol use no Analilia Rolle el caffeine use, averag e drinks per day yes Analilia Romero drug use no Analilia Rolle el passive cigarette sm francisco j exposure no Analilia Romero smoking status Former smoker Analilia [place] seatbelt usage 100 % Analilia [facility] physical exercise, frequency, days per week yes Analilia Romero alcohol use, average drinks per day none Analilia Romero alcohol use no Analilia [place] gallegos caffeine use, averag e drinks per day yes Analilia Romero drug use no Analilia [place] gallegos passive cigarette sm francisco j exposure no Analilia Romero smoking status Former smoker Analilia [place] seatbelt usage 100 % Analilia [facility] smoking status Former smoker Analilia [place] physical exercise, frequency, days per week yes Analilia Romero alcohol use, average drinks per day none Analilia Romero alcohol use no Aanlilia Rolle el caffeine use, averag e drinks per day yes Analilia Romero drug use no Analilia Rolle el passive cigarette sm francisco j exposure no Analilia Romero social history reviewed E&M revi ewed - no changes required Den Archer MD physical exercise, frequency, days per week yes Kelsey Lockett alcohol use, average drinks per day none Kelsey Lockett alcohol use no Kelsey galeano caffeine use, averag e drinks per day yes Kelsey Lockett drug use no Kelsey galeano passive cigarette sm francisco j exposure no Kelsey Lockett smoking status Former smoker Kelsey Swanson number of grandchildren Den Archer MD U heike Archer MD social history reviewed E&M revi ewed - no changes required Den Archer MD physical exercise, frequency, days per week yes Kelsey Lockett alcohol use, average drinks per day none Kelsey Lockett alcohol use no Kelsey Jhonston nson caffeine use, averag e drinks per day yes Kelsey Lockett drug use no Kelsey Johnston nson passive cigarette sm francisco j exposure no Kelsey Lockett smoking status Former smoker Kelsey Swanson social history E&M Marital Statu s: L sonia with family/friends E thnicity: Smoking History: P atient is a former smoker. B enefits of tobacco cessation reviewed. Den Archer MD social history reviewed E&M revi ewed - no changes required Den Archer MD alcohol use no Missy Mcintyrepino lder smoking status Former smoker Missy Mcintyre nfelder social history reviewed E&M revi ewed - no changes required Herb Lindsay MD physical exercise, frequency, days per week yes Yun Gallego alcohol use, average drinks per day none Yun Gallego alcohol use no Yun Lashonda caffeine use, averag e drinks per day yes Yun Gallego drug use no Yun Lashonda passive cigarette sm francisco j exposure no Yun Lashonda smoking status Former smoker Yun Reynacameron yan social history E&M Marital Statu s: L sonia with family/friends E thnicity: P atient is a former smoker. B enefits of tobacco cessation reviewed. Smoking History: P atient is a former smoker. Alessandro Watkins MD social history reviewed E&M revi ewed - no changes required Alessandro Watkins MD physical exercise, frequency, days per week yes Yun Abraham alcohol use, average drinks per day none Yun Abraham alcohol use no Yun Abraham caffeine use, averag e drinks per day yes Yun Abraham drug use no Yun Abraham passive cigarette sm francisco j exposure no Yun Abraham smoking status Former smoker Yun Abraham social history reviewed E&M revi ewed - no changes required Den Archer MD physical exercise, frequency, days per week yes Kelsey Lockett alcohol use, average drinks per day none Kelsey Lockett alcohol use no Kelsey [place] caffeine use, averag e drinks per day yes Kelsey Lockett drug use no Kelsey [place] passive cigarette sm francisco j exposure no Kelsey Lockett smoking status Former smoker [facility] smoking/tobacco cess ation, patient education and counseling yes Den Archer MD social history reviewed E&M revi ewed - no changes required Den Archer MD social history E&M Marital Statu s: Naresh scott with family/friends E thnicity: Rosa M ramírez is a former smoker. Smoking History: Rosa M ramírez is a former smoker. B enefits of tobacco cessation reviewed. Den Archer MD physical exercise, frequency, days per week yes Den Archer MD alcohol use, average drinks per day none Den Archer MD caffeine use, averag e drinks per day yes Den Archer MD drug use no Den Archer MD passive cigarette sm francisco j exposure no Den Archer MD smoking status Former smoker Den Archer MD social history reviewed E&M reviewed Dante Tellez RN social history reviewed E&M reviewed Dante Tellez RN drug use no Dante Tellez RN passive cigarette sm francisco j exposure no Dante Tellez RN smoking, year quit 1990 Dante harmon RN smoking history, tot al pack/year 18 Dante Tellez RN social history reviewed E&M reviewed Dante Tellez RN smoking status former smoker Missy Mcintyre rio social history reviewed E&M reviewed Dante Tellez RN social history reviewed E&M reviewed Dante Tellez RN social history reviewed E&M reviewed Den Archer MD social history reviewed E&M reviewed Dante Tellez RN social history E&M Marital Statu s: L sonia with family/friends E thnicity: Dante Tellez RN social history reviewed E&M reviewed Dante Tellez RN social history reviewed E&M reviewed Den Archer MD physical exercise, frequency, days per week yes [employer] caffeine use, averag e drinks per day yes [employer] alcohol use, average drinks per day none [employer] number of years as a smoker 10 years or m ore [facility] smoking status Quit [facility] FUNCTIONAL STATUS Date Observation Value Provider HRA, CV Assess/Plan, Angina (inactive) Management Plan continue current therapy Cecilia John NP HRA, CV Assess/Plan, Angina (inactive) Management Plan continue current therapy Maggy Lua NP HRA, CV Assess/Plan, Angina (inactive) Management Plan continue current therapy Den Archer MD HRA, CV Assess/Plan, Angina (inactive) Management Plan continue current therapy Den Archer MD HRA, CV Assess/Plan, Angina (inactive) Management Plan continue current therapy Den Archer MD HRA, CV Assess/Plan, Angina (inactive) Management Plan continue current therapy Cecilia John NP HRA, CV Assess/Plan, Angina (inactive) Management Plan continue current therapy Den Archer MD HRA, CV Assess/Plan, Angina (inactive) Management Plan continue current therapy Den Archer MD HRA, CV Assess/Plan, Angina (inactive) Management Plan continue current therapy Den Archer MD HRA, CV Assess/Plan, Angina (inactive) Management Plan continue current therapy Den Archer MD HRA, CV Assess/Plan, Angina (inactive) Management Plan continue current therapy Den Archer MD HRA, CV Assess/Plan, Angina (inactive) Management Plan continue current therapy Den Archer MD MENTAL STATUS Date Observation Value Provider assessment of judgme nt and insight E&M Alert and oriented to time, place and person. Mood and affect are normal. Dante Tellez RN assessment of judgme nt and insight E&M Alert and oriented to time, place and person. Mood and affect are normal. Dante Tellez RN assessment of judgme nt and insight E&M Alert and oriented to time, place and person. Mood and affect are normal. Dante Tellez RN assessment of judgme nt and insight E&M Alert and oriented to time, place and person. Mood and affect are normal.Alert and oriented to time, place and person. Mood and affect are normal. Den Archer MD assessment of judgme nt and insight E&M Alert and oriented to time, place and person. Mood and affect are normal. Dante Tellez RN assessment of judgme nt and insight E&M Alert and oriented to time, place and person. Mood and affect are normal. Den Archer MD assessment of judgme nt and insight E&M Alert and oriented to time, place and person. Mood and affect are normal. Dante Tellez RN assessment of judgme nt and insight E&M Alert and oriented to time, place and person. Mood and affect are normal. Dante Tellez RN assessment of judgme nt and insight E&M Alert and oriented to time, place and person. Mood and affect are normal. 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 H er updated medication list for this problem includes: Amlodipine 5 Mg Tablet (Amlodipine) ..... Take 1 tablet daily (due for follow up) Hydrochlorothiazide 25 Mg Tablet (Hydrochlorothiazide) ..... Take 1 tablet by mouth once a day Lisinopril 40 Mg Tablet (Lisinopril) ..... Take 1 tablet by mouth once a day Aspirin 81 Mg Tablet,delayed Release (dr/ec) (Aspirin) ..... Take 1 tablet by mouth once a day Maggypetra Lua [id number],C, H er updated medication list for this problem includes: Rosuvastatin 5 Mg Tablet (Rosuvastatin) ..... 1 tablet once a day Maggy Jo Ann Lua [id number],C, N o cpap [facility] [id number],C, N o angina Her updated medication list for this problem includes: Amlodipine 5 Mg Tablet (Amlodipine) ..... Take 1 tablet daily (due for follow up) Lisinopril 40 Mg Tablet (Lisinopril) ..... Take 1 tablet by mouth once a day Aspirin 81 Mg Tablet,delayed Release (dr/ec) (Aspirin) ..... Take 1 tablet by mouth once a day Nitrostat 0.4 Mg Tablet, Sublingual (Nitroglycerin) ..... One tab. under tongue as needed. may repeat twice in 10 minutes. Maggy Lua NP [id number],C, D ue to PE's. D enies any recent episodes. Maggy Lua [employer] [id number],C, Follows with hematology o n eliquis, lifelong Maggy Lua [employer] [id number],C, F ollows with hematology o n eliquis, lifelong Maggy Lua [employer] [id number],C, d /t arthritis. Maggy Lua [employer] [id number],C, N o episodes Maggy Lua [employer] [id number],C,R PM shows the blood pressure goes from 120-[address] to 160-170. Added amlodipine 5mg. B P today: 135/84 P rior BP: 140/72 (10/26/2022) Prior 10 Yr Risk Heart Disease: N/A (07/07/2015) Labs Reviewed: C reat: 1.03 (04/29/2012) C hol: 137 (02/18/2012) Den Archer MD [id number],S, Den Archer MD [id number],B,stopped eliqu is Den Archer MD [id number],C,C ontinue on Eliquis twice a day. Probably will need to stop at some time for injections for her back. Den Archer MD [id number],S,H er RPM showed better BP in the last few days. Pt c/o 'lightness in her head' and low energy. Denies SOB and syncope as associated Sx. States that this has been occuring since her blood clots. BP today: 140/72 P rior BP: 163/95 (08/31/2022) Prior 10 Yr Risk Heart Disease: N/A (07/07/2015) Labs Reviewed: C reat: 1.03 (04/29/2012) C hol: 137 (02/18/2012) Den Archer MD [id number],S, H er updated medication list for this problem includes: Lisinopril 40 Mg Tablet (Lisinopril) ..... Take 1 tablet by mouth once a day Aspirin 81 Mg Tablet,delayed Release (dr/ec) (Aspirin) ..... Take 1 tablet by mouth once a day Nitrostat 0.4 Mg Tablet, Sublingual (Nitroglycerin) ..... One tab. under tongue as needed. may repeat twice in 10 minutes. Den Archer MD [id number],C, We discussed joing a CKD study for jardiance. She prefers to hold off for now. Den Archer MD [id number],C, H er updated medication list for this problem includes: Rosuvastatin 5 Mg Tablet (Rosuvastatin) ..... 1 tablet once a day Den Archer MD [id number],C, P atient currently on Eliquis BID Den Archer MD [id number],C, N o recent chest pain. Den Archer MD [id number],C,B P has been running higher lately. Will increase lisinopril to 40mg daily. BP today: 163/95 P rior BP: 171/115 (08/10/2022) Her updated medication list for this problem includes: Lisinopril 40 Mg Tablet (Lisinopril) ..... Take 1 tablet by mouth once a day Aspirin 81 Mg Tablet,delayed Release (dr/ec) (Aspirin) ..... Take 1 tablet by mouth once a day Hydrochlorothiazide 25 Mg Tablet (Hydrochlorothiazide) ..... Take 1 tablet by mouth once a day Den Archer MD [id number],C,T his has been ongoing for 2 weeks now. 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 Archer about possible thrombectomy as appropriate Cecilia John NP [id number],C, H er updated medication list for this problem includes: Levothyroxine 75 Mcg Tablet (Levothyroxine) ..... Take 1 tablet by mouth once a day Cecilia John [employer] [id number],C,Patient dylon martinez on Eliquis BID Cecilia John [employer] [id number],C,Patient dylon martinez on Eliquis BID Cecilia John [employer] [id number],C, H er updated medication list for this problem includes: Lisinopril 40 Mg Tablet (Lisinopril) ..... 1 tablet once a day Hydrochlorothiazide 12.5 Mg Tablet (Hydrochlorothiazide) ..... Once a day BP today: 171/115 R epeat BP today 148/90 P rior BP: 148/77 (07/27/2022) Prior 10 Yr Risk Heart Disease: N/A (07/07/2015) Labs Reviewed: C reat: 1.03 (04/29/2012) C hol: 137 (02/18/2012) [facility] [id number],C, Overall doing well. [facility] [id number],C, H er updated medication list for this problem includes: Rosuvastatin 5 Mg Tablet (Rosuvastatin) ..... 1 tablet once a day [facility] [id number],C,No CPAP. Need s home sleep study. [facility] [id number],C,No current ch est pain [facility] [id number],C, H er updated medication list for this problem includes: Lisinopril 40 Mg Tablet (Lisinopril) ..... 1 tablet once a day Nitrostat 0.4 Mg Tablet, Sublingual (Nitroglycerin) ..... One tab. under tongue as needed. may repeat twice in 10 minutes. Cecilia Bennetttisha [employer]PERATIONS FOR [employer]ER[employer] [id number],C, D ue to PE's. Stay on AC. To see oncologist to try to rule out any age appropriate possible cancers. D enies any recent episodes. Albertobethany Alvrao WONG [id number],S, H er updated medication list for this problem includes: Lisinopril 40 Mg Tablet (Lisinopril) ..... 1 tablet once a day Nitrostat 0.4 Mg Tablet, Sublingual (Nitroglycerin) ..... One tab. under tongue as needed. may repeat twice in 10 minutes. Den Archer MD [id number],C,D ue to PE's. Stay on AC. To see oncologist to try to rule out any age appropriate possible cancers. Den Archer MD [id number],S, H er updated medication list for this problem includes: Rosuvastatin 5 Mg Tablet (Rosuvastatin) ..... 1 tablet once a day Den Archer MD [id number],S, B P today: 148/77 P rior BP: 142/86 (07/19/2022) Prior 10 Yr Risk Heart Disease: N/A (07/07/2015) Labs Reviewed: C reat: 1.03 (04/29/2012) C hol: 137 (02/18/2012) Her updated medication list for this problem includes: Lisinopril 40 Mg Tablet (Lisinopril) ..... 1 tablet once a day Hydrochlorothiazide 12.5 Mg Tablet (Hydrochlorothiazide) ..... Once a day Den Archer MD [id number],S, Kiara lora [facility] [id number],C,o n statin therapy H er updated medication list for this problem includes: Rosuvastatin 5 Mg Tablet (Rosuvastatin) ..... 1 tablet once a day Kiara Lambert [facility] [id number],C,W ith history of ME and stent to RCA in 2005. Remains on asa and statin Kiara Ventimiglia [facility] [id number],C, B P today: 119/84 P rior BP: 126/77 (12/16/2020) Prior 10 Yr Risk Heart Disease: N/A (07/07/2015) Labs Reviewed: C reat: 1.03 (04/29/2012) C hol: 137 (02/18/2012) Her updated medication list for this problem includes: Aspirin 81 Mg Oral Tablet (Aspirin) ..... One tab. daily Lisinopril 40 Mg Oral Tablet (Lisinopril) ..... One tab. daily Hydrochlorothiazide 12.5 Mg Oral Tablet (Hydrochlorothiazide) ..... Once daily Den Archer MD [id number],C,E KG is unchanged. Overall doing well. Den Archer MD [id number],C,Stable Den Archer MD [id number],S,s table, will continue her current medications Den Archer MD [id number],S, Den Archer MD [id number],B,s he has lost 17 lbs since her last visit. Den Archer MD Cardiology Diogo Banks MD Cardiology Diogo Banks MD Cardiology: F sarah with hematology o n eliquis, lifelong. No bleeding issues/concerns. Diogo Banks MD Cardiology:08/04/24 N eeds stress PET and ECHO Last visit N o angina. Continue current medications. H er updated medication list for this problem includes: Lisinopril 40 Mg Tablet (Lisinopril) ..... Take 1 tablet by mouth every day Amlodipine 5 Mg Tablet (Amlodipine) ..... Take 1 tablet daily (due for follow up) Aspirin 81 Mg Tablet,delayed Release (dr/ec) (Aspirin) ..... Take 1 tablet by mouth once a day Nitrostat 0.4 Mg Tablet, Sublingual (Nitroglycerin) ..... One tab. under tongue as needed. may repeat twice in 10 minutes. Diogo Banks MD Cardiology: c urrently not on treatment with CPAP. Diogo Banks MD Cardiology: N o angina. Continue current medications. H er updated medication list for this problem includes: Lisinopril 40 Mg Tablet (Lisinopril) ..... Take 1 tablet by mouth every day Amlodipine 5 Mg Tablet (Amlodipine) ..... Take 1 tablet daily (due for follow up) Aspirin 81 Mg Tablet,delayed Release (dr/ec) (Aspirin) ..... Take 1 tablet by mouth once a day Nitrostat 0.4 Mg Tablet, Sublingual (Nitroglycerin) ..... One tab. under tongue as needed. may repeat twice in 10 minutes. Diogo Banks MD Cardiology: Follows with hematology o n linnette, lifelong Diogo Banks MD Cardiology: H er updated medication list for this problem includes: Rosuvastatin 5 Mg Tablet (Rosuvastatin) ..... 1 tablet once a day Diogo Banks MD Cardiology: F sarah with hematology o n eliquis, lifelong. No bleeding issues/concerns. Diogo Banks MD Cardiology: D ue to PE's. D enies any recent episodes. s /p loop recorder Diogo Banks MD Cardiology: F sarah with hematology o n eliquis, lifelong. No bleeding issues/concerns. Cecilia John NP Cardiology: c urrently not on treatment with CPAP. Cecilia John NP Cardiology: d /t arthritis. Cecilia John NP Cardiology: D ue to PE's. D enies any recent episodes. s /p loop recorder Cecilia John NP Cardiology: N o episodes. Last remote device check 10/04/2023 with appropriate device function. Cecilia John NP Cardiology: R PM reviewed BP Avg 138/75, HR 87 B P today: 123/73 P rior BP: 141/81 (04/23/2023) Will stop Amlodipine for now given episodes of low BP. Keep monitoring BP at home. H er updated medication list for this problem includes: Lisinopril 40 Mg Tablet (Lisinopril) ..... Take 1 tablet by mouth every day Amlodipine 5 Mg Tablet (Amlodipine) ..... Take 1 tablet daily (due for follow up) Hydrochlorothiazide 25 Mg Tablet (Hydrochlorothiazide) ..... Take 1 tablet by mouth once a day Aspirin 81 Mg Tablet,delayed Release (dr/ec) (Aspirin) ..... Take 1 tablet by mouth once a day Cecilia John NP Cardiology: H er updated medication list for this problem includes: Rosuvastatin 5 Mg Tablet (Rosuvastatin) ..... 1 tablet once a day Cecilia John NP Cardiology: N o angina. Continue current medications. H er updated medication list for this problem includes: Lisinopril 40 Mg Tablet (Lisinopril) ..... Take 1 tablet by mouth every day Amlodipine 5 Mg Tablet (Amlodipine) ..... Take 1 tablet daily (due for follow up) Aspirin 81 Mg Tablet,delayed Release (dr/ec) (Aspirin) ..... Take 1 tablet by mouth once a day Nitrostat 0.4 Mg Tablet, Sublingual (Nitroglycerin) ..... One tab. under tongue as needed. may repeat twice in 10 minutes. Cecilia John NP Cardiology: M uch better on amlodipine R PM reviewed 120-150/80s. H er updated medication list for this problem includes: Amlodipine 5 Mg Tablet (Amlodipine) ..... Take 1 tablet daily (due for follow up) Hydrochlorothiazide 25 Mg Tablet (Hydrochlorothiazide) ..... Take 1 tablet by mouth once a day Lisinopril 40 Mg Tablet (Lisinopril) ..... Take 1 tablet by mouth once a day Aspirin 81 Mg Tablet,delayed Release (dr/ec) (Aspirin) ..... Take 1 tablet by mouth once a day Maggy Lua [employer]OR OF [employer]ATIONS FOR [employer] Cardiology: H er updated medication list for this problem includes: Rosuvastatin 5 Mg Tablet (Rosuvastatin) ..... 1 tablet once a day Maggy Lua [employer]ATIONS FOR [employer] Cardiology: N o cpap Maggy Chavezomid WONG Cardiology: N o angina Her updated medication list for this problem includes: Amlodipine 5 Mg Tablet (Amlodipine) ..... Take 1 tablet daily (due for follow up) Lisinopril 40 Mg Tablet (Lisinopril) ..... Take 1 tablet by mouth once a day Aspirin 81 Mg Tablet,delayed Release (dr/ec) (Aspirin) ..... Take 1 tablet by mouth once a day Nitrostat 0.4 Mg Tablet, Sublingual (Nitroglycerin) ..... One tab. under tongue as needed. may repeat twice in 10 minutes. Maggy Chavezomid WONG Cardiology: D ue to PE's. D enies any recent episodes. Maggy Chavezomid WONG Cardiology: Follows with hematology o n eliquis, lifelong Maggy Lua [employer] Cardiology: F leathas with hematology o n eliquis, lifelong Maggy Lua [employer] Cardiology: d /t arthritis. Maggy Cherry Chanell WONG Cardiology: N o episodes Maggy Jo Ann Lua NP Cardiology:RPM shows the blood pressure goes from 120-[address] to 160-170. Added amlodipine 5mg. B P today: 135/84 P rior BP: 140/72 (10/26/2022) Prior 10 Yr Risk Heart Disease: N/A (07/07/2015) Labs Reviewed: C reat: 1.03 (04/29/2012) C hol: 137 (02/18/2012) Den Archer MD Cardiology Den Archer MD Cardiology:stopped eliquis Den Archer MD Cardiology:Continue on Eliquis twice a day. Probably will need to stop at some time for injections for her back. Den Archer MD Cardiology:Her RPM s howed better BP in the last few days. Pt c/o 'lightness in her head' and low energy. Denies SOB and syncope as associated Sx. States that this has been occuring since her blood clots. BP today: 140/72 P rior BP: 163/95 (08/31/2022) Prior 10 Yr Risk Heart Disease: N/A (07/07/2015) Labs Reviewed: C reat: 1.03 (04/29/2012) C hol: 137 (02/18/2012) Den Archer MD Cardiology: H er updated medication list for this problem includes: Lisinopril 40 Mg Tablet (Lisinopril) ..... Take 1 tablet by mouth once a day Aspirin 81 Mg Tablet,delayed Release (dr/ec) (Aspirin) ..... Take 1 tablet by mouth once a day Nitrostat 0.4 Mg Tablet, Sublingual (Nitroglycerin) ..... One tab. under tongue as needed. may repeat twice in 10 minutes. Den Archer MD Cardiology: We discu rosalind joing a CKD study for jardiance. She prefers to hold off for now. Den Archer MD Cardiology: H er updated medication list for this problem includes: Rosuvastatin 5 Mg Tablet (Rosuvastatin) ..... 1 tablet once a day Den Archer MD Cardiology: P atient currently on Eliquis BID Den Archer MD Cardiology: N o recent chest pain. Den Archer MD Cardiology:BP has be en running higher lately. Will increase lisinopril to 40mg daily. BP today: 163/95 P rior BP: 171/115 (08/10/2022) Her updated medication list for this problem includes: Lisinopril 40 Mg Tablet (Lisinopril) ..... Take 1 tablet by mouth once a day Aspirin 81 Mg Tablet,delayed Release (dr/ec) (Aspirin) ..... Take 1 tablet by mouth once a day Hydrochlorothiazide 25 Mg Tablet (Hydrochlorothiazide) ..... Take 1 tablet by mouth once a day Den Archer MD Cardiology:This has been ongoing for 2 weeks now. 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 Archer about possible thrombectomy as appropriate Cecilia John NP Cardiology: H er updated medication list for this problem includes: Levothyroxine 75 Mcg Tablet (Levothyroxine) ..... Take 1 tablet by mouth once a day Cecilia John NP Cardiology:Patient currently on Eliquis BID Cecilia John NP Cardiology:Patient currently on Eliquis BID Cecilia John NP Cardiology: H er updated medication list for this problem includes: Lisinopril 40 Mg Tablet (Lisinopril) ..... 1 tablet once a day Hydrochlorothiazide 12.5 Mg Tablet (Hydrochlorothiazide) ..... Once a day BP today: 171/115 R epeat BP today 148/90 P rior BP: 148/77 (07/27/2022) Prior 10 Yr Risk Heart Disease: N/A (07/07/2015) Labs Reviewed: C reat: 1.03 (04/29/2012) C hol: 137 (02/18/2012) Cecilia John NP Cardiology: Overall doing well. Cecilia John NP Cardiology: H er updated medication list for this problem includes: Rosuvastatin 5 Mg Tablet (Rosuvastatin) ..... 1 tablet once a day Cecilia John NP Cardiology:No CPAP. Needs home s leep study. Cecilia John NP Cardiology:No current chest pain Cecilia John NP Cardiology: H er updated medication list for this problem includes: Lisinopril 40 Mg Tablet (Lisinopril) ..... 1 tablet once a day Nitrostat 0.4 Mg Tablet, Sublingual (Nitroglycerin) ..... One tab. under tongue as needed. may repeat twice in 10 minutes. Cecilia John NP Cardiology: D ue to PE's. Stay on AC. To see oncologist to try to rule out any age appropriate possible cancers. D enies any recent episodes. Cecilia John NP Cardiology: H er updated medication list for this problem includes: Lisinopril 40 Mg Tablet (Lisinopril) ..... 1 tablet once a day Nitrostat 0.4 Mg Tablet, Sublingual (Nitroglycerin) ..... One tab. under tongue as needed. may repeat twice in 10 minutes. Den Archer MD Cardiology:Due to PE 's. Stay on AC. To see oncologist to try to rule out any age appropriate possible cancers. Den Archer MD Cardiology: H er updated medication list for this problem includes: Rosuvastatin 5 Mg Tablet (Rosuvastatin) ..... 1 tablet once a day Den Archer MD Cardiology: B P today: 148/77 P rior BP: 142/86 (07/19/2022) Prior 10 Yr Risk Heart Disease: N/A (07/07/2015) Labs Reviewed: C reat: 1.03 (04/29/2012) C hol: 137 (02/18/2012) Her updated medication list for this problem includes: Lisinopril 40 Mg Tablet (Lisinopril) ..... 1 tablet once a day Hydrochlorothiazide 12.5 Mg Tablet (Hydrochlorothiazide) ..... Once a day Den Archer MD Cardiology Kiara ochoa [facility] Cardiology:on statin therapy H er updated medication list for this problem includes: Rosuvastatin 5 Mg Tablet (Rosuvastatin) ..... 1 tablet once a day Kiara Lambert [facility] Cardiology:With hist ory of ME and stent to RCA in 2005. Remains on asa and statin Kiara Lambert [facility] Cardiology: B P today: 119/84 P rior BP: 126/77 (12/16/2020) Prior 10 Yr Risk Heart Disease: N/A (07/07/2015) Labs Reviewed: C reat: 1.03 (04/29/2012) C hol: 137 (02/18/2012) Her updated medication list for this problem includes: Aspirin 81 Mg Oral Tablet (Aspirin) ..... One tab. daily Lisinopril 40 Mg Oral Tablet (Lisinopril) ..... One tab. daily Hydrochlorothiazide 12.5 Mg Oral Tablet (Hydrochlorothiazide) ..... Once daily Den Archer MD Cardiology:EKG is un changed. Overall doing well. Den Archer MD Cardiology:Stable Den Aponte Cardiology:stable, w ill continue her current medications Den Archer MD Cardiology Den Archer MD Cardiology:she has l ost 17 lbs since her last visit. Den Archer MD Cardiology:Her sympt oms are intermittent. Normal nuclear stress test done 06/24/19. At this time, would not recommend any invasive testing. Den Archer MD Cardiology Den Archer MD Cardiology Den Archer MD Cardiology: B P today: 132/78 P rior BP: 140/80 (06/12/2019) Prior 10 Yr Risk Heart Disease: N/A (07/07/2015) Labs Reviewed: C reat: 1.03 (04/29/2012) C hol: 137 (02/18/2012) Den Archer MD Cardiology Den Archer MD Cardiology: B P today: 140/80 P rior BP: 110/70 (09/04/2018) Prior 10 Yr Risk Heart Disease: N/A (07/07/2015) Labs Reviewed: C reat: 1.03 (04/29/2012) C hol: 137 (02/18/2012) Den Archer MD Cardiology:Will check a stress t est. Den Archer MD Cardiology: F ollowed by PCP. Den Archer MD Cardiology: U sed to follow with Dr. Lindsay but has stopped going since kidneys have improved for over a year. Den Archer MD Cardiology: S table. No chest pains. Continues on aspirin. Den Archer MD Cardiology: B P today: 110/70 P rior BP: 171/79 (05/16/2017) Prior 10 Yr Risk Heart Disease: N/A (07/07/2015) Labs Reviewed: C reat: 1.03 (04/29/2012) C hol: 137 (02/18/2012) Den Archer MD Cardiology:Used to f ollow with Dr. Lindsay but has stopped going since kidneys have improved. Den Archer MD Cardiology:Followed by PCP. Yasmani Archer MD Cardiology:Patient s tates she checks her BP every other day at home an it is almost always in 120s. BP today: 171/79 P rior BP: 153/83 (05/10/2016) Prior 10 Yr Risk Heart Disease: N/A (07/07/2015) Labs Reviewed: C reat: 1.03 (04/29/2012) C hol: 137 (02/18/2012) Den Archer MD Cardiology:Stable. N o chest pains. Continues on aspirin. Den Archer MD Cardiology:She was h aving cramps so she was taken off crestor to see if this would help. Her cramps have gotten better since being taken off. Den Archer MD Cardiology:Will check home sleep study. Den Archer MD Cardiology Follow up Den flynn MD Cardiology Follow up :BP today: 146/80 P rior BP: 160/83 (06/06/2015) Her updated medication list for this problem includes: Aspirin 81 Mg Tabs (Aspirin) ..... One tab. daily Lisinopril 40 Mg Tabs (Lisinopril) ..... One tab. daily Hydrochlorothiazide 12.5 Mg Oral Tabs (Hydrochlorothiazide) ..... Once daily Den Archer MD Cardiology Follow up :CHOL: 137 (02/18/2012) LDL: 62 (02/18/2012) Her updated medication list for this problem includes: Crestor 5 Mg Tabs (Rosuvastatin calcium) ..... One tab. daily Den Archer MD Cardiology Follow up :CHOL: 137 (02/18/2012) LDL: 62 (02/18/2012) CHOL (goal): 200 (07/07/2015) LDL (goal): 100 (07/07/2015) HDL (goal): 40 (07/07/2015) TG (goal): 150 (07/07/2015) Her updated medication list for this problem includes: Crestor 5 Mg Tabs (Rosuvastatin calcium) ..... One tab. daily Den Archer MD Cardiology Herb Lindsay MD Cardiology Herb Lindsay MD Cardiology Herb Lindsay MD Cardiology Herb Lindsay MD Cardiology:Blood pre ssure is elevated at 165/84. Lisinopril has been increased to 40 mg a day and she continues on HCTZ 12.5 mg daily. Alessandro Watkins MD Cardiology:New onset of chest pain in a pt with history of RCA stent in 2005. Started her on Ranexa 500 mg twice daily and advised to use nitroglycerin as needed. An adenosine stress myoview has been arranged. Is likely that she will require a repeat cath. Alessandro Watkins MD Cardiology:On replacement therap y. Alessandro Watkins MD Cardiology:On Crestor. Alessandro Watkins MD Cardiology: B P today: 193/88 P rior BP: 122/75 (05/14/2014) Den Archer MD follow up:BP 128/75 Her updated medication list for this problem includes: Triamterene-hctz 37.5-25 Mg Tabs (Triamterene-hctz) ..... Daily Lisinopril 20 Mg Tabs (Lisinopril) ..... One tab. daily Aspirin 81 Mg Tabs (Aspirin) ..... One tab. daily Den Archer MD routine-echo prior: H er updated medication list for this problem includes: Levoxyl 137 Mcg Tabs (Levothyroxine sodium) ..... One tablet daily Labs Reviewed: T SH: 0.07 (02/18/2012) C hol: 137 (02/18/2012) LDL: 62 (02/18/2012) Den Archer MD routine-echo prior: H er updated medication list for this problem includes: Crestor 5 Mg Tabs (Rosuvastatin calcium) ..... One tab. daily BP today: / Prior BP: 125/76 (05/02/2012) C HOL: 137 (02/18/2012) LDL: 62 (02/18/2012) Den Archer MD routine-echo prior Den Archer MD routine-echo prior: H er updated medication list for this problem includes: Lisinopril 20 Mg Tabs (Lisinopril) ..... One tab. daily Crestor 5 Mg Tabs (Rosuvastatin calcium) ..... One tab. daily Aspirin 81 Mg Tabs (Aspirin) ..... One tab. daily BP today: / Prior BP: 125/76 (05/02/2012) N uclear Stress Findings: 1. Gurdeep protocol exercise tolerance test. 2 . Normal left ventricular size and function with a calculated ejection fraction of (QGS) 60%. 3 . Myocardial scintigraphy is normal without evidence for previous myocardial infarction or reversible ischemia. - GC (04/16/2012) C ardiac Cath: No significant coronary artery disease. Normal left ventricular systolic function with an ejection fraction of 60%. (09/13/2009) C ardiac Cath Comments: 4.0 x 15mm Vision stent distal RCA. (12/10/2005) C arotid Doppler/Duplex: normal: (01/08/2006) C HOL: 137 (02/18/2012) LDL: 62 (02/18/2012) BUN: 29 (04/29/2012) Creat: 1.03 (04/29/2012) Glucose: 88 (04/29/2012) N a+: 139 (04/29/2012) K+: 4.3 (04/29/2012) Cl: 103 (04/29/2012) TSH: 0.07 (02/18/2012) Den Archer MD routine-echo prior: H er updated medication list for this problem includes: Lisinopril 20 Mg Tabs (Lisinopril) ..... One tab. daily Aspirin 81 Mg Tabs (Aspirin) ..... One tab. daily & #13;BP today: / Prior BP: 125/76 (05/02/2012) N uclear Stress Findings: 1. Gurdeep protocol exercise tolerance test. 2 . Normal left ventricular size and function with a calculated ejection fraction of (QGS) 60%. 3 . Myocardial scintigraphy is normal without evidence for previous myocardial infarction or reversible ischemia. - GC (04/16/2012) C ardiac Cath: No significant coronary artery disease. Normal left ventricular systolic function with an ejection fraction of 60%. (09/13/2009) C ardiac Cath Comments: 4.0 x 15mm Vision stent distal RCA. (12/10/2005) C arotid Doppler/Duplex: normal: (01/08/2006) C HOL: 137 (02/18/2012) LDL: 62 (02/18/2012) BUN: 29 (04/29/2012) Creat: 1.03 (04/29/2012) Glucose: 88 (04/29/2012) N a+: 139 (04/29/2012) K+: 4.3 (04/29/2012) Cl: 103 (04/29/2012) TSH: 0.07 (02/18/2012) Den Archer MD routine : H er updated medication list for this problem includes: Triamterene-hctz 37.5-25 Mg Tabs (Triamterene-hctz) ..... Daily Lisinopril 10 Mg Tabs (Lisinopril) ..... One tab. daily Aspirin 81 Mg Tabs (Aspirin) ..... One tab. daily Prior BP: 152/71 (04/11/2012) Labs Reviewed: C reat: 1.03 (04/29/2012) C hol: 137 (02/18/2012) LDL: 62 (02/18/2012) Den Archer MD routine : H er updated medication list for this problem includes: Lisinopril 10 Mg Tabs (Lisinopril) ..... One tab. daily Crestor 5 Mg Tabs (Rosuvastatin calcium) ..... One tab. daily Aspirin 81 Mg Tabs (Aspirin) ..... One tab. daily BP today: / Prior BP: 152/71 (04/11/2012) N uclear Stress Findings: 1. Gurdeep protocol exercise tolerance test. 2 . Normal left ventricular size and function with a calculated ejection fraction of (QGS) 60%. 3 . Myocardial scintigraphy is normal without evidence for previous myocardial infarction or reversible ischemia. - (04/16/2012) C ardiac Cath: No significant coronary artery disease. Normal left ventricular systolic function with an ejection fraction of 60%. (09/13/2009) C ardiac Cath Comments: 4.0 x 15mm Vision stent distal RCA. (12/10/2005) C arotid Doppler/Duplex: normal: (01/08/2006) C HOL: 137 (02/18/2012) LDL: 62 (02/18/2012) BUN: 29 (04/29/2012) Creat: 1.03 (04/29/2012) Glucose: 88 (04/29/2012) N a+: 139 (04/29/2012) K+: 4.3 (04/29/2012) Cl: 103 (04/29/2012) TSH: 0.07 (02/18/2012) Den Archer MD routine : H er updated medication list for this problem includes: Lisinopril 10 Mg Tabs (Lisinopril) ..... One tab. daily Crestor 5 Mg Tabs (Rosuvastatin calcium) ..... One tab. daily Aspirin 81 Mg Tabs (Aspirin) ..... One tab. daily BP today: / Prior BP: 152/71 (04/11/2012) N uclear Stress Findings: 1. Gurdeep protocol exercise tolerance test. 2 . Normal left ventricular size and function with a calculated ejection fraction of (QGS) 60%. 3 . Myocardial scintigraphy is normal without evidence for previous myocardial infarction or reversible ischemia. - (04/16/2012) C ardiac Cath: No significant coronary artery disease. Normal left ventricular systolic function with an ejection fraction of 60%. (09/13/2009) C ardiac Cath Comments: 4.0 x 15mm Vision stent distal RCA. (12/10/2005) C arotid Doppler/Duplex: normal: (01/08/2006) C HOL: 137 (02/18/2012) LDL: 62 (02/18/2012) BUN: 29 (04/29/2012) Creat: 1.03 (04/29/2012) Glucose: 88 (04/29/2012) N a+: 139 (04/29/2012) K+: 4.3 (04/29/2012) Cl: 103 (04/29/2012) TSH: 0.07 (02/18/2012) Den Archer MD routine : H er updated medication list for this problem includes: Lisinopril 10 Mg Tabs (Lisinopril) ..... One tab. daily Aspirin 81 Mg Tabs (Aspirin) ..... One tab. daily BP today: / Prior BP: 152/71 (04/11/2012) N uclear Stress Findings: 1. Gurdeep protocol exercise tolerance test. 2 . Normal left ventricular size and function with a calculated ejection fraction of (QGS) 60%. 3 . Myocardial scintigraphy is normal without evidence for previous myocardial infarction or reversible ischemia. - (04/16/2012) C ardiac Cath: No significant coronary artery disease. Normal left ventricular systolic function with an ejection fraction of 60%. (09/13/2009) C ardiac Cath Comments: 4.0 x 15mm Vision stent distal RCA. (12/10/2005) C arotid Doppler/Duplex: normal: (01/08/2006) C HOL: 137 (02/18/2012) LDL: 62 (02/18/2012) BUN: 29 (04/29/2012) Creat: 1.03 (04/29/2012) Glucose: 88 (04/29/2012) N a+: 139 (04/29/2012) K+: 4.3 (04/29/2012) Cl: 103 (04/29/2012) TSH: 0.07 (02/18/2012) Den Archer MD chest pain : H er updated medication list for this problem includes: Crestor 5 Mg Tabs (Rosuvastatin calcium) ..... One tab. daily Aspirin 81 Mg Tabs (Aspirin) ..... One tab. daily Lisinopril 10 Mg Tabs (Lisinopril) ..... One tab. daily BP today: / Prior BP: 142/84 (05/03/2011) N uclear Stress Findings: 1. Normal Gurdeep protocol exercise tolerance test. 2 . Normal left ventricular size and function with a calculated ejection fraction of 50%. 3 . Myocardial scintigraphy is normal without evidence for previous myocardial infarction or reversible ischemia. & #13; (04/25/2010) C ardiac Cath: No significant coronary artery disease. Normal left ventricular systolic function with an ejection fraction of 60%. (09/13/2009) C ardiac Cath Comments: 4.0 x 15mm Vision stent distal RCA. (12/10/2005) C arotid Doppler/Duplex: normal: (01/08/2006) Den Archer MD chest pain : H er updated medication list for this problem includes: Aspirin 81 Mg Tabs (Aspirin) ..... One tab. daily Lisinopril 10 Mg Tabs (Lisinopril) ..... One tab. daily BP today: / Prior BP: 142/84 (05/03/2011) N uclear Stress Findings: 1. Normal Gurdeep protocol exercise tolerance test. 2 . Normal left ventricular size and function with a calculated ejection fraction of 50%. 3 . Myocardial scintigraphy is normal without evidence for previous myocardial infarction or reversible ischemia. (04/25/2010) C ardiac Cath: No significant coronary artery disease. Normal left ventricular systolic function with an ejection fraction of 60%. (09/13/2009) C ardiac Cath Comments: 4.0 x 15mm Vision stent distal RCA. (12/10/2005) C arotid Doppler/Duplex: normal: (01/08/2006) Orders: E KG (CPT-52848) C omplete Echo (CPT-22469) S tress Test - Nuclear (89760) B ASIC METABOLIC PANEL W/EGFR (86233) Den Archer MD chest pain : H er updated medication list for this problem includes: Crestor 5 Mg Tabs (Rosuvastatin calcium) ..... One tab. daily Aspirin 81 Mg Tabs (Aspirin) ..... One tab. daily Lisinopril 10 Mg Tabs (Lisinopril) ..... One tab. daily BP today: / Prior BP: 142/84 (05/03/2011) N uclear Stress Findings: 1. Normal Gurdeep protocol exercise tolerance test. 2 . Normal left ventricular size and function with a calculated ejection fraction of 50%. 3 . Myocardial scintigraphy is normal without evidence for previous myocardial infarction or reversible ischemia. & #13; (04/25/2010) C ardiac Cath: No significant coronary artery disease. Normal left ventricular systolic function with an ejection fraction of 60%. (09/13/2009) C ardiac Cath Comments: 4.0 x 15mm Vision stent distal RCA. (12/10/2005) C arotid Doppler/Duplex: normal: (01/08/2006) Den Archer MD Yearly follow-up wit h Echo: H er updated medication list for this problem includes: Crestor 5 Mg Tabs (Rosuvastatin calcium) ..... One tab. daily Aspirin 81 Mg Tabs (Aspirin) ..... One tab. daily BP today: 142/84 Prior BP: 162/82 (05/04/2010) N uclear Stress Findings: 1. Normal Gurdeep protocol exercise tolerance test. 2 . Normal left ventricular size and function with a calculated ejection fraction of 50%. 3 . Myocardial scintigraphy is normal without evidence for previous myocardial infarction or reversible ischemia. (04/25/2010) C ardiac Cath: No significant coronary artery disease. Normal left ventricular systolic function with an ejection fraction of 60%. (09/13/2009) C ardiac Cath Comments: 4.0 x 15mm Vision stent distal RCA. (12/10/2005) C arotid Doppler/Duplex: normal: (01/08/2006) Den Archer MD Yearly follow-up wit h Echo: H er updated medication list for this problem includes: Crestor 5 Mg Tabs (Rosuvastatin calcium) ..... One tab. daily Aspirin 81 Mg Tabs (Aspirin) ..... One tab. daily BP today: 142/84 Prior BP: 162/82 (05/04/2010) N uclear Stress Findings: 1. Normal Gurdeep protocol exercise tolerance test. 2 . Normal left ventricular size and function with a calculated ejection fraction of 50%. 3 . Myocardial scintigraphy is normal without evidence for previous myocardial infarction or reversible ischemia. (04/25/2010) C ardiac Cath: No significant coronary artery disease. Normal left ventricular systolic function with an ejection fraction of 60%. (09/13/2009) C ardiac Cath Comments: 4.0 x 15mm Vision stent distal RCA. (12/10/2005) C arotid Doppler/Duplex: normal: (01/08/2006) Den Archer MD test results Den Archer MD test results : H er updated medication list for this problem includes: Crestor 5 Mg Tabs (Rosuvastatin calcium) ..... One tab. daily BP today: / Prior BP: 133/70 (10/27/2009) Den Archer MD test results : H er updated medication list for this problem includes: Crestor 5 Mg Tabs (Rosuvastatin calcium) ..... One tab. daily BP today: / Prior BP: 133/70 (10/27/2009) Den Archer MD test results Den Archer MD test results : H er updated medication list for this problem includes: Crestor 5 Mg Tabs (Rosuvastatin calcium) ..... One tab. daily Aspirin 81 Mg Tabs (Aspirin) ..... One tab. daily BP today: / Prior BP: 133/70 (10/27/2009) N uclear Stress Findings: 1. Normal Gurdeep protocol exercise tolerance test. 2 . Normal left ventricular size and function with a calculated ejection fraction of 50%. 3 . Myocardial scintigraphy is normal without evidence for previous myocardial infarction or reversible ischemia. (04/25/2010) C ardiac Cath: No significant coronary artery disease. Normal left ventricular systolic function with an ejection fraction of 60%. (09/13/2009) C ardiac Cath Comments: 4.0 x 15mm Vision stent distal RCA. (12/10/2005) C arotid Doppler/Duplex: normal: (01/08/2006) Den Archer MD test results : H er updated medication list for this problem includes: Aspirin 81 Mg Tabs (Aspirin) ..... One tab. daily BP today: / Prior BP: 133/70 (10/27/2009) N uclear Stress Findings: 1. Normal Gurdeep protocol exercise tolerance test. 2 . Normal left ventricular size and function with a calculated ejection fraction of 50%. 3 . Myocardial scintigraphy is normal without evidence for previous myocardial infarction or reversible ischemia. (04/25/2010) C ardiac Cath: No significant coronary artery disease. Normal left ventricular systolic function with an ejection fraction of 60%. (09/13/2009) C ardiac Cath Comments: 4.0 x 15mm Vision stent distal RCA. (12/10/2005) C arotid Doppler/Duplex: normal: (01/08/2006) E chocardiogram: Normal left ventricular systolic function. Normal left ventricular size. Normal left ventricular wall thickness. There is E to A wave reversal consistent with impaired LV relaxation . Left ventricular ejection fraction is estimated at 60%. The left atrium is normal in size. Normal appearing mitral valve leaflets. There is trace physiologic mitral valve regurgitation. Aortic valve leaflets appear structurally normal. Velocities, as well as gradients across the aortic valve are normal. There is trace physiologic aortic valve regurgitation. Normal appearing tricuspid valve leaflets. There is trace physiologic tricuspid valve regurgitation. IVC is normal in size with normal respiratory response. Estimated peak pulmonary artery systolic pressure is 26.0 mmHg. (04/25/2010) Den Archer MD hospital f/u Den Archer MD hospital f/u Den Archer MD hospital f/u: H er updated medication list for this problem includes: Crestor 5 Mg Tabs (Rosuvastatin calcium) ..... One tab. daily Aspirin 81 Mg Tabs (Aspirin) ..... One tab. daily Den Archer MD hospital f/u: H er updated medication list for this problem includes: Aspirin 81 Mg Tabs (Aspirin) ..... One tab. daily Den Archer MD routine: H er updated medication list for this problem includes: Triamterene-hctz 37.5-25 Mg Tabs (Triamterene-hctz) ..... Daily Aspirin 81 Mg Tabs (Aspirin) ..... One tab. daily BP today: 152/85 P rior BP: 146/76 (05/13/2008) Den Archer MD routine: H er updated medication list for this problem includes: Aspirin 81 Mg Tabs (Aspirin) ..... One tab. daily Nitrolingual 0.4 Mg/spray Soln (Nitroglycerin) ..... One spray prn Crestor 5 Mg Tabs (Rosuvastatin calcium) ..... One tab. daily BP today: 152/85 Prior BP: 146/76 (05/13/2008) N uclear Stress Findings: EF 44%. Blunted blood pressure response and fair exercise tolerance with an EKG suggestive of ischemia. Normal myocardial perfusion without infarct or ischemia. (11/22/2006) C ardiac Cath: EF 60%. Elevated LVEDP. Normal LVSF. Recent inferior ME that cannulized spontaneously but received thrombectomy and stent. (12/10/2005) C ardiac Cath Comments: 4.0 x 15mm Vision stent distal RCA. (12/10/2005) C arotid Doppler/Duplex: normal: (01/08/2006) Orders: E KG ([id number]) Den Archer MD routine: H er updated medication list for this problem includes: Crestor 5 Mg Tabs (Rosuvastatin calcium) ..... One tab. daily BP today: 152/85 Prior BP: 146/76 (05/13/2008) Den Archer MD routine: H er updated medication list for this problem includes: Aspirin 81 Mg Tabs (Aspirin) ..... One tab. daily Nitrolingual 0.4 Mg/spray Soln (Nitroglycerin) ..... One spray prn Crestor 5 Mg Tabs (Rosuvastatin calcium) ..... One tab. daily BP today: 152/85 Prior BP: 146/76 (05/13/2008) N uclear Stress Findings: EF 44%. Blunted blood pressure response and fair exercise tolerance with an EKG suggestive of ischemia. Normal myocardial perfusion without infarct or ischemia. (11/22/2006) C ardiac Cath: EF 60%. Elevated LVEDP. Normal LVSF. Recent inferior ME that cannulized spontaneously but received thrombectomy and stent. (12/10/2005) C ardiac Cath Comments: 4.0 x 15mm Vision stent distal RCA. (12/10/2005) C arotid Doppler/Duplex: normal: (01/08/2006) Den Archer MD routine Den Archer MD routine: H er updated medication list for this problem includes: Aspirin 81 Mg Tabs (Aspirin) ..... One tab. daily Nitrolingual 0.4 Mg/spray Soln (Nitroglycerin) ..... One spray prn Crestor 5 Mg Tabs (Rosuvastatin calcium) ..... One tab. daily BP today: 152/85 Prior BP: 146/76 (05/13/2008) N uclear Stress Findings: EF 44%. Blunted blood pressure response and fair exercise tolerance with an EKG suggestive of ischemia. Normal myocardial perfusion without infarct or ischemia. (11/22/2006) C ardiac Cath: EF 60%. Elevated LVEDP. Normal LVSF. Recent inferior ME that cannulized spontaneously but received thrombectomy and stent. (12/10/2005) C ardiac Cath Comments: 4.0 x 15mm Vision stent distal RCA. (12/10/2005) C arotid Doppler/Duplex: normal: (01/08/2006) Den Archer MD office visit:she und erstands she needs to lose weight. Den Archer MD office visit: T he following medications were removed from the medication list: Vytorin 10-20 Mg Tabs (Ezetimibe-simvastatin) ..... Daily Her updated medication list for this problem includes: Aspirin 81 Mg Tabs (Aspirin) ..... One tab. daily Nitroglycerin Pt24 (Nitroglycerin pt24) BP today: 146/76 Prior BP: 143/80 (11/27/2007) N uclear Stress Findings: EF 44%. Blunted blood pressure response and fair exercise tolerance with an EKG suggestive of ischemia. Normal myocardial perfusion without infarct or ischemia. (11/22/2006) C ardiac Cath: EF 60%. Elevated LVEDP. Normal LVSF. Recent inferior ME that cannulized spontaneously but received thrombectomy and stent. (12/10/2005) C ardiac Cath Comments: 4.0 x 15mm Vision stent distal RCA. (12/10/2005) C arotid Doppler/Duplex: normal: (01/08/2006) Den Archer MD office :well controlled. Den beltran MD office : H er updated medication list for this problem includes: Vytorin 10-20 Mg Tabs (Ezetimibe-simvastatin) ..... Daily c hol is under control. Den Archer MD office :continues to exercise. trying to lose weight. Den Archer MD office : H er updated medication list for this problem includes: Vytorin 10-20 Mg Tabs (Ezetimibe-simvastatin) ..... Daily Aspirin 81 Mg Tabs (Aspirin) ..... One tab. daily s table. last tc was 160 Den Archer MD Date Name PROTHROMBIN TIME WIT H INR LIPID PANEL CBC (INCLUDES DIFF/P LT) BASIC METABOLIC PANE L W/EGFR Echo with Bubbles myocardial blood katherine w (PET) Stress Cardiac PET-C T TSH, free T4, total T3 BASIC METABOLIC PANE L W/EGFR PROTHROMBIN TIME WIT H INR Venous Doppler Bilat eral LE - Reflux RPM (remote patient monitoring) LIPID PANEL Lipoprotein (a) CRP, high sensitivit y Microalb/Creatinine Urine, Random FERRITIN PROBNP, N TERMINAL COMPREHENSIVE METABO LIC PANEL, W/EGFR IRON AND TOTAL IRON BINDING CAPACITY CBC (INCLUDES DIFF/P LT) URINALYSIS, REFLEX CBC (INCLUDES DIFF/P LT) D-DIMER, QUANTITATIV E COMPREHENSIVE METABO LIC PANEL, W/EGFR Monitor - Telemetry (Mobile Cardiac) Carotid Duplex Bilat eral Stress Regadenoson Complete Echo Complete Echo Complete Echo Complete Echo Stress Regadenoson Complete Echo Complete Echo Sleep Study Home STR - Adenosine Complete Echo Complete Echo Complete Echo BASIC METABOLIC PANE L W/EGFR Stress Test - Nuclea r Complete Echo Complete Echo Complete Echo Complete Echo Stress Test - Nuclea r Complete Echo Complete Echo HISTORY OF PROCEDURES Procedure Date Procedure Name Provider Procedure Notes S tatus Complex e/m visit add on Diogo Banks MD completed EKG Diogo Banks MD complete d EKG Den Archer MD completed EKG Den Archer MD completed EKG Den Archer MD completed Regadenoson, 4 units Den Archer MD completed Cardiolite, 2 units Den Archer MD completed SPECT Images Den Archer MD complet ed Stress EKG Den Archer MD completed EKG Den Archer MD completed Schedule Followup Den Archer MD in 1 yr co mpleted EKG Den Archer MD completed SNOMED-CT: 61636683 Physical Exam, Performed: Pulse Exam of Foot Den Archer MD completed EKG Den Archer MD completed SNOMED-CT: 566376933 [id number] Current Medications Documented Den Archer MD completed SNOMED-CT: 54815225 Physical Exam, Performed: Pulse Exam of Foot Den Archer MD completed EKG Den Archer MD completed SNOMED-CT: 582561860 [id number] Current Medications Documented Den Archer MD completed SNOMED-CT: [id number] Smoking Cessation Counseling Den Archer MD completed SNOMED-CT: 501710821 087502 Current Medications Documented Den Archer MD completed SNOMED-CT: 14254216 Physical Exam, Performed: Pulse Exam of Foot Herb Lindsay MD completed SNOMED-CT: 711067369 440996 Current Medications Documented Herb Lindsay MD completed Stress EKG Duran Soriano MD completed Regadenoson, 4 units Alessandro Watkins MD completed Cardiolite, 2 units Alessandro Watkins MD completed SPECT Images Alessandro Watkins MD compl eted SNOMED-CT: [id number] 616180 Current Medications Documented Alessandro Watkins MD completed SNOMED-CT: 509635113 Smoking Cessation Counseling Alessandro Watkins MD completed SNOMED-CT: 23390921 Physical Exam, Performed: Pulse Exam of Foot Alessandro Watkins MD completed EKG Alessandro Watkins MD complet ed SNOMED-CT: 32297141 Physical Exam, Performed: Pulse Exam of Foot Den Archer MD completed EKG Den Archer MD completed SNOMED-CT: 958753837 227363 Current Medications Documented Den Archer MD completed EKG Den Archer MD completed EKG Den Archer MD completed EKG Den Archer MD completed EKG Den Archer MD completed EKG Dante Tellez RN completed EKG Den Archer MD completed
--- OUTSIDE RECORDS SUMMARY | 2024-09-08 16:03 | XMS_ITS | Clinical Summary ---
Author Organization [facility] Address [address] [place] [address] Care Team Providers Care Regulator Operator Name Role Phone Ewa Valencia Unavailable Brain Angeles MD Unavailable [phone] Jarett Iraheta MD Unavailable Onesimo Banks MD Primary Care Provider Allergies Active Allergy Reactions Criticality Noted Date Comments Adhesive Tape-Silicones Levofloxacin Anaphylaxis High 07/19/2022 Medications traMADoL (ULTRAM) 50 mg tablet Take 1 tablet (50 mg total) by mouth every 8 (eight) hours as needed for pain [address] (PROTONIX) 40 mg EC tablet Take 1 tablet (40 mg total) by mouth nightly 1900 2 Active magnesium oxide (MAG-OX) 400 mg (241.3 mg elemental magnesium) tablet Take 1 tablet (400 mg total) by mouth nightly 0 Active lisinopriL (PRINIVIL,ZESTR IL) 20 mg tablet Take 2 tablets (40 mg total) by mouth daily 3 Active levothyroxine (SYNTHROID) 75 mcg tablet Take 1 tablet (75 mcg total) by mouth card cutter helper before breakfast 3 Active calcitRIOL (ROCALTROL) 0.25 mcg capsule Take by mouth daily 2 Active aspirin 81 mg chewable tablet Take 1 tablet (81 mg total) by mouth daily with dinner 1900 Active amLODIPine (NORVASC) 5 mg tablet Take 1 tablet (5 mg total) by mouth daily Active apixaban (ELIQUIS) 5 mg tabletIndicatio ns:thrombophili a Take 1 tablet (5 mg total) by mouth 2 (two) times a day 60 tablet 11 4 Active tirzepatide, weight loss, (Zepbound) 2.5 mg/0.5 mL pen injector Inject under the skin Active rosuvastatin (CRESTOR) 5 mg tablet Take 1 tablet (5 mg total) by mouth daily Every other day 0 08/13/19 25 Discontinu ed(Other) hydroCHLOROthia zide (HYDRODIURIL) 25 mg tablet Take 1 tablet (25 mg total) by mouth daily 08/13/19 25 Discontinu ed(Other) Active Problems Problem Noted Date Diagnosed Date Syncope, unspecified syncope type 08/26/2022 DVT (deep venous thrombosis) 08/26/2022 Primary hypertension 08/26/2022 Acquired hypothyroidism 08/26/2022 Gastroesophageal reflux disease without esophagi tis 08/26/2022 Dyslipidemia 08/26/2022 Pulmonary embolism, bilateral 07/19/2022 Encounters Date Type Department Care Team Description 08/12/2024 1:30 PM CDT Office Visit [facility] Oncology [address] [place] [address] Medical Office [address]g [address] [place] [address] Brain Anegles MD Pulmonary embolism, bilateral (HCC) (Primary Dx); Pulmonary embolism, unspecified chronicity, unspecified pulmonary embolism type, unspecified whether acute cor pulmonale present (HCC) 08/12/2024 1:00 PM CDT Lab [facility] [place] [facility] [address] [place] [address] Pulmonary embolism, bilateral (HCC) from Last 3 Months Immunizations Immunization Administration Dates Next Due Influenza, Quad, Adjuvantate d, Intramuscular 05/01/2023,03/19/2022 Influenza, Quadrivalent, Hig h Dose, Preservative Free, Intrr 02/17/2021,01/21/2020 Influenza, Quadrivalent, Spl it, Intramuscular 03/21/2022,03/15/2021,04/08/2018 Influenza, Trivalent, High D ose, Split, Preservative Free, Intramuscular 03/23/2019,03/03/2016 Influenza, Trivalent, IM (MDV) 03/10/2015,2013,06/03/2011 Influenza, Trivalent, Preser vative Free, Intramuscular 03/04/2013 Influenza, Unspecified 05/01/2023,04/22/2023 Moderna SARS-CoV-2 Monovalen t Vaccination (12+ YRS) 04/03/2021,08/10/2020,08/02/2020,07/13,06/30/2020 Pneumococcal Conjugate PCV 13 05/19/2015, 015 Pneumococcal Polysaccharide PPV23 01/01/2011,06/2005 Tdap 08/07/2016 ZOSTER LIVE 06/03/2008 Surgical History Surgery Date Site/Laterality Comments COLONOSCOPY Medical History Medical History Date Comments Arthritis Coronary artery disease Pulmonary embolism (HCC) Pulmonary embolism (HCC) Pulmonary embolism, bilateral (HCC) Pulmonary embolism (HCC) Pulmonary embolism, bilateral (HCC) Social History Tobacco Use Types Packs/Day Years Used Date Smoking Tobacco: Never Tobacco Cessation:Counseling Given: Not Answered Alcohol Use Standard Drinks/Week Comments Not Currently 0 (1 standard drink = 0.6 oz pur e alcohol) Personal Safety Answer Date Recorded Have you ever been in or are you currently in a harmful physical or emotional relationship or is someone making you feel afraid or unsafe? 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 Gender Identity Not on file Sexual Orientation Not on file Obstetrics History Last Filed Vital Signs Vital Sign Reading Time Taken Comments Blood Pressure 134/63 08/12/2024 12:57 PM CDT Pulse 83 08/12/2024 12:57 PM CDT Temperature 36.3 C (97.3 F) 08/12/2024 12:57 PM CDT Respiratory Rate 20 08/12/2024 12:5 7 PM CDT Oxygen Saturation 95% 08/12/2024 12: 57 PM CDT Inhaled Oxygen Concentration - - Weight 106.9 kg (235 lb 9.6 oz) 025 12:57 PM CDT Height 162.6 cm (5' 4 ) 08/12/2024 12:5 7 PM CDT Body Mass Index 40.44 08/12/2024 12:57 PM CDT Plan of Treatment Health Maintenance Due Date Last Done Comments Depression Screening 1940 Hepatitis B Screening 02/12/1960 Well Visit 65+ 2007 Zoster Vaccine (2 of 3) 07/29/2008 06/03/2008 Fall Risk Assessment 07/22/2023 07/22/2022 Covid-19 Vaccine (2023-2 5 season) 2024 04/30/2022, 09/07/2021, 04/03/2021, Additional history exists Influenza Vaccine (#1) 2024 , 05/01/2023, 04/22/2023, Additional history exists Osteoporosis Screening-Bone Density Scan 08/14/2024 08/14/2022 DTaP/Tdap/Td Vaccine (2 - Td or Tdap) 08/07/2026 08/07/2016 Pneumococcal vaccine 65+ Completed 015, 05/17/2015, 01/01/2011, Additional history exists Medical Devices Implanted Type Area [employer] Attendant Device Identifier Shelf Expiration Date Model / Serial / Lot [employer] Reveal Linq Ii Implantable Labor Custodian [id number] - [id number] - [id number] Implanted:Qty: 1 on 08/27/2022 by Jarett Iraheta MD at [facility] [employer] [id number] 12/07/2023 [id number] / [id number] / Procedures Procedure Name Priority Date/Time Associated Diagnosis Comments EGFR Routine 08/12/2024 12:35 PM CDT Pulmonary embolism, bilateral (HCC) DIFFERENTIAL AUTO Routine 08/12/2024 12: 35 PM CDT Pulmonary embolism, bilateral (HCC) CBC WITH AUTO DIFFERENTIAL Routine 08/12/2024 12:35 PM CDT Pulmonary embolism, bilateral (HCC) COMPREHENSIVE METABOLIC PANEL Routine 08/12/2024 12:35 PM CDT Pulmonary embolism, bilateral (HCC) from Last 3 Months Results * (ABNORMAL) eGFR (08/12/2024 12:35 PM CDT) eGFR 34(L) >=60 mL/min/1. 73 m2 Comment: Interpretive Data Reference Interval Normal >/= 90 mL/min/1.73m2 Mildly decreased* 60 - 89 mL/min/1.73m2 Mildly to moderately decreased 45 - 59 mL/min/1.73m2 Moderately to severely decreased 30 - 44 mL/min/1.73m2 Severely decreased 15 - 29 mL/min/1.73m2 Kidney Failure < 15 mL/min/1.73m2 *Relative to young adult level Estimated glomerular filtration rate is determined by the 2020 CKD-EPI equation recommended by the National Kidney Foundation (A Unifying Approach to GFR Estimation: Recommendations of the NKF-ASK Task Force on Reassessing the Inclusion of Race in Diagnosing Kidney Disease, JASN 2020). The CKD-EPI equation should not be used for patients with unstable renal function and has not been validated in children and those over 70. Current interpretive data was last reviewed 2021. Testing performed by: [facility], [address], [place], [address] Blood 08/12/2024 12:3 5 PM CDT 08/12/2024 1:35 PM CDT Judith Davis MARGIN ANALYST LAB BLOOD ORDERABLES Final Result [facility] ([place]) [address] [place] [address] * Differential, auto (08/12/2024 12:35 PM CDT) Neutrophil abs 4.8 1.5 - 6.5 K/cumm Comment:Testing performed by : [facility] [address], Medical Office [facility] [address], [place] [address] Imm gran abs 0.0 0.0 - 0.1 K/cumm [facility] ([place]) Comment:Testing performed by : [facility] [address], Medical Office [facility] [address], [place] [address] Lymphocyte abs 1.4 0.8 - 3.3 K/cumm [facility] ([place]) Comment:Testing performed by : [facility] [address], Medical Office [address], [place] [address] Monocyte abs 0.6 0.2 - 0.8 K/cumm [facility] ([place]) Comment:Testing performed by : [facility] [address], Medical Office [address], [place] [address] Eosinophil abs 0.0 0.0 - 0.5 K/cumm [facility] ([place]) Comment:Testing performed by : [facility] [address], Medical Office [address], [place] [address] Basophil abs 0.0 0.0 - 0.1 K/cumm [facility] ([place]) Comment:Testing performed by : [facility] [address], Medical Office [address], [place] [address] Neutrophil pct 70.1 % [facility] ([place]) Comment: Interpretive Data Percent cell count reference ranges are not reported, since discordance with absolute values may lead to misinterpretation of CBC data. Current Interpretive Data was last revised on 2022. Testing performed by: [facility] [address], Medical Office [address], [place] [address] Imm gran pct 0.3 % [facility] ([place]) Comment: Interpretive Data Percent cell count reference ranges are not reported, since discordance with absolute values may lead to misinterpretation of CBC data. Current Interpretive Data was last revised on 2022. Testing performed by: [facility] [address], Medical Office [address], [place] [address] Lymphocyte pct 20.9 % [facility] ([place]) Comment: Interpretive Data Percent cell count reference ranges are not reported, since discordance with absolute values may lead to misinterpretation of CBC data. Current Interpretive Data was last revised on 2022. Testing performed by: [facility] [address], Medical Office [address], [place] [address] Monocyte pct 8.1 % [facility] ([place]) Comment: Interpretive Data Percent cell count reference ranges are not reported, since discordance with absolute values may lead to misinterpretation of CBC data. Current Interpretive Data was last revised on 2022. Testing performed by: [facility] [address], Medical Office [facility] [address], [place] [address] Eosinophil pct 0.3 % [facility] ([place]) Comment: Interpretive Data Percent cell count reference ranges are not reported, since discordance with absolute values may lead to misinterpretation of CBC data. Current Interpretive Data was last revised on 2022. Testing performed by: [facility] [address], Medical Office [facility] [address], [place] [address] Basophil pct 0.3 % [facility] ([place]) Comment: Interpretive Data Percent cell count reference ranges are not reported, since discordance with absolute values may lead to misinterpretation of CBC data. Current Interpretive Data was last revised on 2022. Testing performed by: [facility] [address], Medical Office [facility] [address], [place] [address] Blood 08/12/2024 12:3 5 PM CDT 08/12/2024 12:39 PM CDT Judith Davis MARGIN ANALYST LAB BLOOD ORDERABLES Final Result [facility] ([place]) [address] [facility] [address] Department [place] [address] * (ABNORMAL) CBC with auto differential (08/12/2024 12:35 PM CDT) WBC 6.8 3.8 - 9.9 K/cumm Comment:Testing performed by : [facility] [address], Medical Office [facility] [address], [place] [address] Hgb 13.7 11.9 - 15.5 g/dL [facility] ([place]) Comment:Testing performed by : [facility] [address], Medical Office [facility] [address], [place] [address] Hct 42.8 35.6 - 45.5 % [facility] ([place]) Comment:Testing performed by : [facility] [address], Medical Office [facility] [address], [place] [address] Plt 200 150 - 400 K/cumm [facility] ([place]) Comment:Testing performed by : [facility] [address], Medical Office [facility] [address], [place] [address] MPV 9.7 9.1 - 12.3 fL [facility] ([place]) Comment:Testing performed by : [facility] [address], Medical Office [facility] [address], [place] [address] RBC 4.64 3.90 - 5.20 M/cumm [facility] ([place]) Comment:Testing performed by : [facility] [address], Medical Office [facility] [address], [place] [address] MCV 92.2 81.3 - 96.4 fL [facility] ([place]) Comment:Testing performed by : [facility] [address], Medical Office [facility] [address], [place] [address] MCH 29.5 27.1 - 33.3 pg [facility] ([place]) Comment:Testing performed by : [facility] [address], Medical Office [facility] [address], [place] [address] MCHC 32.0(L) 32.3 - 35.7 g/dL [facility] ([place]) Comment:Testing performed by : [facility] [address], Medical Office [facility] [address], [place] [address] RDW CV 17.0(H) 11.1 - 14.9 % [facility] ([place]) Comment:Testing performed by : [facility] [address], Medical Office [facility] [address], [place] [address] RDW SD 57.4(H) 35.7 - 48.1 fL [facility] ([place]) Comment:Testing performed by : [facility] [address], Medical Office [facility] [address], [place] [address] NRBC abs Not Measured 0.00 - 0.01 K/cumm [facility] ([place]) Comment:Testing performed by : [facility] [address], Medical Office [facility] [address], [place] [address] Blood 08/12/2024 12:3 5 PM CDT 08/12/2024 12:39 PM CDT Judith Davis NP LAB BLOOD ORDERABLES Final Result [facility] ([place]) [address] Department [place] [address] * (ABNORMAL) Comprehensive metabolic panel (08/12/2024 12:35 PM CDT) Sodium 142 135 - 145 mmol/L Comment:Testing performed by : [facility], [place], [address] Potassium, pl 4.4 3.3 - 4.9 mmol/L [facility] ([place]) Comment:Testing performed by : [facility], [place], [address] Chloride 106 97 - 110 mmol/L [facility] ([place]) Comment:Testing performed by : [facility], [place], [address] CO2 22 22 - 32 mmol/L [facility] ([place]) Comment:Testing performed by : [facility], [place], [address] Anion gap 14 2 - 15 mmol/L [facility] ([place]) Comment:Testing performed by : [place], [address] BUN 31(H) 6 - 25 mg/dL [facility] ([place]) Comment:Testing performed by : [facility], [place], [address] Creatinine 1.53(H) 0.60 - 1.10 mg/dL [facility] ([place]) Comment:Testing performed by : [facility], [place], [address] Glucose 98 70 - 199 mg/dL [facility] ([place]) Comment: Interpretive Data Fasting glucose >/= 126 mg/dl is diagnostic for diabetes. Fasting is defined as no caloric intake for at least 8 hours. Fasting glucose between 100 mg/dl to 125 mg/dl is diagnostic of prediabetes. In a patient with classic symptoms of hyperglycemia or hyperglycemic crisis, a random glucose >/= 200 mg/dl is diagnostic for diabetes. In the absence of unequivocal hyperglycemia, results should be confirmed by repeat testing. The classification and Diagnosis of Diabetes Diabetes Care 202; 46: S19-S40. Current interpretive data was last revised 2022. Testing performed by: [facility], [facility], [place], [address] Calcium 10.0 8.5 - 10.3 mg/dL [facility] ([place]) Comment:Testing performed by : [facility], [place], [address] Bilirubin, total 0.7 0.1 - 1.2 mg/dL [facility] ([place]) Comment:Testing performed by : [facility], [place], [address] Protein, pl 6.4(L) 6.5 - 8.5 g/dL [facility] ([place]) Comment:Testing performed by : [facility], [place], [address] Albumin 4.1 3.5 - 5.0 g/dL [facility] ([place]) Comment:Testing performed by : [facility], [place], [address] Alk phos 67 40 - 130 Units/L [facility] ([place]) Comment:Testing performed by : [facility], [place], [address] ALT 9 7 - 45 Units/L [facility] ([place]) Comment:Testing performed by : [facility], [place], [address] AST 13 10 - 45 Units/L [facility] ([place]) Comment:Testing performed by : [facility], [place], [address] Blood 08/12/2024 12:3 5 PM CDT 08/12/2024 1:35 PM CDT us Judith Davis NP LAB BLOOD ORDERABLES Final Result [facility] ([place]) [address] [facility] [facility] [address] [place] [address] from Last 3 Months Insurance MEDICARE [employer] MEDICARE [employer] [facility] HMO MEDICARE [facility] HMO Advance Directives For more information, please contact: [phone] * Full Code (Latest Code Status on File) Date Activated Date Inactivated Comments 08/26/2022 2:56 PM 08/27/2022 9:22 PM * Full Code Date Activated Date Inactivated Comments 08/26/2022 2:01 PM 08/26/2022 2:56 PM Care Teams Regulator Operator Relationship Specialty Start Date End Date Onesimo Banks MD [address] [place] [address] PCP - General Internal Medicine 05/13/23 Ewa Valencia PA [address] [place] [address] Medical Oncology 07/22/22 Brain Angeles MD [address] [place] [address] Medical Oncologist/Brand Engineer Hematology and Oncology 08/22/22 Jarett Iraheta MD [address] [place] [address] Referring Physician Cardiovascular Disease 08/27/22
--- OUTSIDE RECORDS SUMMARY | 2024-09-08 16:03 | XMS_ITS | Referral Summary ---
Author Organization [facility] Address [address] [place] [address] Care Team Providers Care Residential Supervisor Name Role Phone Ewa Valencia Unavailable Brain Angeles MD Unavailable [phone] Jarett Iraheta MD Unavailable Onesimo Banks MD Primary Care Provider Encounters Date Type Department Care Team Description 08/12/2024 1:00 PM CDT Lab [facility] Cancer [address] [place] [address] Pulmonary embolism, bilateral (HCC) 08/12/2024 1:30 PM CDT Office Visit [facility] [address] [place] [address] Medical Office [address] [place] [address] Brain Angeles MD Pulmonary embolism, bilateral (HCC) (Primary Dx); Pulmonary embolism, unspecified chronicity, unspecified pulmonary embolism type, unspecified whether acute cor pulmonale present (HCC) from Last 3 Months Allergies Active Allergy Reactions Criticality Noted Date [...] 1 tablet (75 mcg total) 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 3 Active calcitRIOL (ROCALTROL) 0.25 [...] 08/26/2022 Dyslipidemia 08/26/2022 Pulmonary embolism, bilateral 07/19/2022 Immunizations Immunization Administration Dates Next Due Influenza, [...] PPV23 01/01/2011,06/2005 Tdap 08/07/2016 ZOSTER LIVE 06/03/2008 Social History Tobacco Use Types Packs/Day Years [...] on file 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 Testing performed by: [facility], [facility], [place], [address] Blood 08/12/2024 12:3 5 PM CDT 08/12/2024 1:35 PM CDT Judith Lema Ralfquintin INSTANTIZER OPERATOR LAB BLOOD ORDERABLES Final Result [facility] ([place] 1 [facility] [place] [address] * Differential, auto (08/12/2024 12:35 PM CDT) Neutrophil abs 4.8 1.5 - 6.5 K/cumm Comment:Testing performed by : [facility] [address], Medical Office [facility] B [facility] [address], [place] [address] Imm gran abs 0.0 0.0 - 0.1 K/cumm [facility] ([place]) Comment:Testing performed by : [facility] [address], Medical Office [facility] [address], [place] [address] Lymphocyte abs 1.4 0.8 - 3.3 K/cumm [facility] ([place]) Comment:Testing performed by : [facility] [address], Medical Office [facility] [address], [place] [address] Monocyte abs 0.6 0.2 - 0.8 K/cumm [facility] ([place]) Comment:Testing performed by : [facility] [address], Medical Office [facility] [address], [place] [address] Eosinophil abs 0.0 0.0 - 0.5 K/cumm [facility] ([place]) Comment:Testing performed by : [facility] [address], Medical Office [facility] B [address], [place] [address] Basophil abs 0.0 0.0 - 0.1 K/cumm [facility] ([place]) Comment:Testing performed by : [facility] [address], Medical Office [facility] B [address], [place] [address] Neutrophil pct 70.1 % [facility] ([place]) Comment: Interpretive Data Percent cell count reference ranges are not reported, since discordance with absolute values may lead to misinterpretation of CBC data. Current Interpretive Data was last revised on 2022. Testing performed by: [facility] [address], Medical Office [facility] B [address], [place] [address] Imm gran pct 0.3 % [facility] ([place]) Comment: Interpretive Data Percent cell count reference ranges are not reported, since discordance with absolute values may lead to misinterpretation of CBC data. Current Interpretive Data was last revised on 2022. Testing performed by: [facility] [address], Medical Office [facility] [address], [place] [address] Lymphocyte pct 20.9 % [facility] ([place]) Comment: Interpretive Data Percent cell count reference ranges are not reported, since discordance with absolute values may lead to misinterpretation of CBC data. Current Interpretive Data was last revised on 2022. Testing performed by: [facility] [address], Medical Office [facility] [address], [place] [address] Monocyte pct 8.1 % [facility] ([place]) Comment: Interpretive Data Percent cell count reference ranges are not reported, since discordance with absolute values may lead to misinterpretation of CBC data. Current Interpretive Data was last revised on 2022. Testing performed by: [facility] [address], Medical Office [facility] B [address], [place] [address] Eosinophil pct 0.3 % [facility] ([place]) Comment: Interpretive Data Percent cell count reference ranges are not reported, since discordance with absolute values may lead to misinterpretation of CBC data. Current Interpretive Data was last revised on 2022. Testing performed by: [facility] [address], Medical Office [facility] [address], [place] [address] Basophil pct 0.3 % [facility] ([place]) Comment: Interpretive Data Percent cell count reference ranges are not reported, since discordance with absolute values may lead to misinterpretation of CBC data. Current Interpretive Data was last revised on 2022. Testing performed by: [facility] [address], Medical Office [facility] [address], [place] [address] Blood 08/12/2024 12:3 5 PM CDT 08/12/2024 12:39 PM CDT Judith Lema Susan INSTANTIZER OPERATOR LAB BLOOD ORDERABLES Final Result [facility] ([place]) 1 [facility] Department [place] [address] * (ABNORMAL) CBC with auto differential (08/12/2024 12:35 PM CDT) WBC 6.8 3.8 - 9.9 K/cumm Comment:Testing performed by : [facility] [address], Medical Office [address], [place] [address] Hgb 13.7 11.9 - 15.5 g/dL [facility] ([place]) Comment:Testing performed by : [facility] [address], Medical Office [facility] [address], [place] [address] Hct 42.8 35.6 - 45.5 % [facility] ([place]) Comment:Testing performed by : [facility] [address], Medical Office [address], [place] [address] Plt 200 150 - 400 K/cumm [facility] ([place]) Comment:Testing performed by : [facility] [address], Medical Office [facility] B [address], [place] [address] MPV 9.7 9.1 - 12.3 fL [facility] ([place]) Comment:Testing performed by : [facility] [address], Medical Office [address], [place] [address] RBC 4.64 3.90 - 5.20 M/cumm [facility] ([place]) Comment:Testing performed by : [facility] [address], Medical Office [address], [place] [address] MCV 92.2 81.3 - 96.4 fL [facility] ([place]) Comment:Testing performed by : [facility] [address], Medical Office [address], [place] [address] MCH 29.5 27.1 - 33.3 pg [facility] ([place]) Comment:Testing performed by : [facility] [address], Medical Office [address], [place] [address] MCHC 32.0(L) 32.3 - 35.7 g/dL [facility] ([place]) Comment:Testing performed by : [facility] [address], Medical Office [facility] [address], [place] [address] RDW CV 17.0(H) 11.1 - 14.9 % [facility] ([place]) Comment:Testing performed by : [facility] [address], Medical Office [facility] [address], [place] [address] RDW SD 57.4(H) 35.7 - 48.1 fL [facility] ([place]) Comment:Testing performed by : [facility] [address], Medical Office [facility] [address], [place] [address] NRBC abs Not Measured 0.00 - 0.01 K/cumm [facility] ([place]) Comment:Testing performed by : [facility] [address], Medical Office [facility] [address], [place] [address] Blood 08/12/2024 12:3 5 PM CDT 08/12/2024 12:39 PM CDT Judith Davis INSTANTIZER OPERATOR LAB BLOOD ORDERABLES Final Result [facility] ([place]) 1 [facility] [place] [address] * (ABNORMAL) Comprehensive metabolic panel (08/12/2024 12:35 PM CDT) Sodium 142 135 - 145 mmol/L Comment:Testing performed by : [facility], [facility], [place], [address] Potassium, pl 4.4 3.3 - 4.9 mmol/L [facility] ([place]) Comment:Testing performed by : [facility], [place], [address] Chloride 106 97 - 110 mmol/L [facility] ([place]) Comment:Testing performed by : [facility], [place], [address] CO2 22 22 - 32 mmol/L [facility] ([place]) Comment:Testing performed by : [facility], [place], [address] Anion gap 14 2 - 15 mmol/L [facility] ([place]) Comment:Testing performed by : [facility], [place], [address] BUN 31(H) 6 - 25 mg/dL [facility] ([place]) Comment:Testing performed by : [facility], [place], [address] Creatinine 1.53(H) 0.60 - 1.10 mg/dL [facility] ([place]) Comment:Testing performed by : [facility], [place], [address] Glucose 98 70 - 199 mg/dL [facility] [...] classification and Diagnosis of Diabetes Diabetes Care 2021; 46: S19-S40. Current interpretive data was last revised 2022. Testing performed by: [facility], [place], [address] Calcium 10.0 8.5 - 10.3 mg/dL [facility] ([place]) Comment:Testing performed by : [facility], [place], [address] Bilirubin, total 0.7 0.1 - 1.2 mg/dL [facility] ([place]) Comment:Testing performed by : [facility], [place], [address] Protein, pl 6.4(L) 6.5 - 8.5 g/dL [facility] ([place]) Comment:Testing performed by : [facility], [place], [address] Albumin 4.1 3.5 - 5.0 g/dL [facility] ([place]) Comment:Testing performed by : [facility], [place], [address] Alk phos 67 40 - 130 Units/L [facility] ([place]) Comment:Testing performed by : [facility], [facility], [place], [address] ALT 9 7 - 45 Units/L [facility] ([place]) Comment:Testing performed by : [facility], [facility], [place], [address] AST 13 10 - 45 Units/L [facility] ([place]) Comment:Testing performed by : [facility], [facility], [place], [address] Blood 08/12/2024 12:3 5 PM CDT 08/12/2024 1:35 PM CDT Judith Davis NP LAB BLOOD ORDERABLES Final Result [facility] ([place]) 1 [facility] [place] [address] from Last 3 Months Insurance MEDICARE [facility] Address: [facility] [address] [place] [address] [employer]IL [employer] MEDICARE [employer] [facility] Advance Directives For more information, please contact: [phone] * Full Code (Latest Code Status on File) Date Activated Date Inactivated Comments 08/26/2022 2:56 PM 08/27/2022 9:22 PM * Full Code Date Activated Date Inactivated Comments 08/26/2022 2:01 PM 08/26/2022 2:56 PM Care Teams Residential Supervisor Relationship Specialty Start Date End Date Onesimo Banks MD [address] [place] [address] PCP - General Internal Medicine 05/13/23 Ewa Valencia PA [address] [place] [address] Medical Oncology 07/22/22 Brain Angeles MD [address] [place] [address] Medical Oncologist/Avionics System Engineer Hematology and Oncology 08/22/22 Jarett Iraheta MD [address] [place] [address] Referring Physician Cardiovascular Disease 08/27/22
--- OUTSIDE RECORDS SUMMARY | 2024-09-08 16:04 | XMS_ITS | Data Portability ---
Author Organization [place] - [place] [employer], Main Office Address [address] [place] [address] Care Team Providers Care Gambling Supervisor Name Role Phone ADRIANE GIANG Primary Care Provider ADRIANE GIANG Referring Provider [phone] Assessment Encounter Date Assessment Date Assessment LastModified by Organization Details LastModified Time 01/30/2024 01/30/2024 The patient has severe glenohumeral osteoarthritis both shoulders doing better after cortisone and oral prednisone. She also has severe primary osteoarthritis of both knee joints. Under sterile conditions I injected both knee joints in the office today with Orthovisc injection number 2. I will see her back next week for the 3rd injection both knees she voiced understanding agrees above plan she will call for any further problems difficulties or questions. Not available 01/30/2024 11:22:56 02/10/2024 02/10/2024 The patient has severe primary osteoarthritis both knee joints as described. Under sterile conditions I injected both knee joints in the office today with Orthovisc injection number 3. The patient tolerated the procedure well. She will give it time see how both knees do I will see her back in a couple of months to see what impact treatment has had. We could do the gel shots again in 6 months versus cortisone in between we will see how she does with time she voiced understanding agrees above plan she will call for any further problems difficulties or questions. Not available 02/10/2024 09:58:22 03/06/2024 03/06/2024 The patient has severe advanced ifca-yc-hlte glenohumeral osteoarthritis of the right shoulder which has become more significantly painful in the last week or 2. She had no new trauma or injury. Today's x-rays show no acute findings. She does have a small bony fragment in the shoulder subacromial space which appears to be a fragment off of a large osteophyte that may have broken off at some point this is seen on her previous x-rays as well from July. This could cause some mechanical symptoms in addition to the fact that she has other large osteophytes and wmmx-wu-dhmq changes. We talked about treatment options what she really needs his shoulder arthroplasty however at 84 years of age with multiple medical problems and being on blood thinners she would be at somewhat high risk. She agreed she would rather try to get by with conservative measures. Today I offered her a shot of cortisone she wanted proceed under sterile conditions I injected the patient's right shoulder joint in the office with 4 cc of 0.5% bupivacaine and 20 mg of Kenalog. Patient tolerated procedure well. We will do a course of oral prednisone also. She was asking about Voltaren gel I told her we could prescribe this as long as her primary care physician cleared her to use this. She will let us know if he says it is okay we will get her a prescription for that she can use it on her right shoulder. She voiced understanding agrees above plan I will see her back in 3 months for another injection if necessary. She will call for any further problems difficulties or questions. Not available 03/06/2024 11:17:53 04/14/2024 04/14/2024 The patient has severe primary osteoarthritis both knee joints as described we reviewed her previous x-rays in detail today. She wanted proceed with cortisone and a course of oral prednisone this has helped previously. Under sterile conditions I injected the patient's bilateral knee joints in the office with 4 cc of 0.5% bupivacaine and 20 mg of Kenalog each. The patient tolerated procedures well. I will see her back as needed again in 3 months if necessary. She voiced understanding agrees above plan she will call for any further problems difficulties or questions. Not available 04/14/2024 14:34:53 07/09/2024 07/09/2024 By previous x-ra y exam the patient is noted to have severe rotator cuff tear arthropathy of the bilateral shoulders with dana-nu-vizo glenohumeral changes and hypertrophic spurring and subchondral sclerotic changes. At her request under sterile conditions I injected the patient's bilateral shoulder joints in the office today with 4 cc 0.5% bupivacaine and 20 mg of Kenalog each. The patient tolerated procedures well. The patient also has severe primary osteoarthritis both knees with yyun-kv-gbdt changes lateral compartments and valgus deformities. She is not a good candidate for joint arthroplasty due to medical issues. She is also 84 years of age. At her request under sterile conditions I injected the patient's bilateral knee joints in the office with 4 cc 0.5% bupivacaine and 20 mg of Kenalog each. The patient tolerated the procedures well. I will see her back as needed we can do this again in 3 months if necessary for her shoulders or her knees she voiced understanding and agreed with the above plan she will call for any further problems difficulties or questions. Not available 07/09/2024 15:11:57 Plan of Treatment Reminders Order Date Submit Date Provider Last Modified By Organization Details Last Modified Time Details Appointments Any 5 2024 01:00P SIXTO Alexander Not available Not available Not available Lab None recorded. Referral None recorded. Procedures injection /aspirati on joint/bur sa (PROC) 2024 025 [email or web address] In-Office Order, Internal Use Only DO Not Attach Compendium DO Not Attach Compendium, Do Not Delete/merge, [id number] 07/09/2024 13:53:24 injection /aspirati on joint/bur sa (PROC) 2024 025 [email or web address] In-Office Order, Internal Use Only DO Not Attach Compendium DO Not Attach Compendium, Do Not Delete/merge, [id number] 07/09/2024 13:53:25 injection /aspirati on joint/bur sa (PROC) 2023 024 [email or web address] In-Office Order, Internal Use Only DO Not Attach Compendium DO Not Attach Compendium, Do Not Delete/merge, [id number] 04/14/2024 14:20:20 injection /aspirati on joint/bur sa (PROC) 2023 024 [email or web address] In-Office Order, Internal Use Only DO Not Attach Compendium DO Not Attach Compendium, Do Not Delete/merge, [id number] 03/06/2024 11:11:16 knee aspiratio n/injecti on (PROC) 2023 024 [email or web address] In-Office Order, Internal Use Only DO Not Attach Compendium DO Not Attach Compendium, Do Not Delete/merge, [id number] 02/10/2024 09:45:18 knee aspiratio n/injecti on (PROC) 2023 024 [email or web address] In-Office Order, Internal Use Only DO Not Attach Compendium DO Not Attach Compendium, Do Not Delete/merge, [id number] 01/30/2024 11:01:45 Surgeries None recorded. Imaging XR, knee 2024 025 [email or web address] [facility] [place], [address], [place], [address], 07/09/2024 15:13:39 XR, shoulder 2023 024 [email or web address] [facility] [place], [address], [place], [address], 03/06/2024 12:47:59 Medication Orders bupivacai ne HCl 0.5 % (5 mg/mL) injection solution 2024 025 [email or web address] [id number], [address], [place], [address], 07/09/2024 14:02:43 Kenalog 10 mg/mL suspensio n for injection 2024 025 [email or web address] [id number], [address], [place], [address], 07/09/2024 14:02:43 bupivacai ne HCl 0.5 % (5 mg/mL) injection solution 2024 025 [email or web address] [id number], [address], [place], [address], 07/09/2024 14:02:43 Kenalog 10 mg/mL suspensio n for injection [id number], [address], [place], [address], 07/09/2024 14:02:43 bupivacai ne HCl 0.5 % (5 mg/mL) injection solution [address] #[id number], [address], [place], [address], 04/14/2024 15:30:56 Kenalog 10 mg/mL suspensio n for injection [address][id number], [address] [place], [address], 04/14/2024 15:30:56 prednison e 10 mg tablets in a dose pack [address][id number], [address] [place], [address], 04/14/2024 15:30:56 bupivacai ne HCl 0.5 % (5 mg/mL) injection solution [address][id number], [address] [place], [address], 03/06/2024 11:41:42 Kenalog 10 mg/mL suspensio n for injection [address][id number], [address] [place], [address], 03/06/2024 11:41:42 prednison e 10 mg tablets in a dose pack [address] #[id number], [address], [place], [address], 03/06/2024 11:41:42 ORTHOVISC 30 mg/2 mL intra-art icular syringe 2023 024 [email or web address] [id number], [address], [place], [address], 02/10/2024 09:48:52 ORTHOVISC 30 mg/2 mL intra-art icular syringe 2023 024 [email or web address] [id number], [address], [place], [address], 01/30/2024 11:42:30 Patient TargetsNo targets recorded. Patient InstructionsNo instructions recorded. Reason for Referral None Reported. Results Created Date Observation Date Name Description Value Unit Range Abnormal Flag Note LastModifiedBy Organization Detail LastModifiedTime 03/06/20 24 XR, shoul [place] No observ ation record ed. [email or web address] [facility] [place] [address], [place], [address], 03/06/2024 12:47:13 07/09/19 25 XR, knee No observ ation record ed. [email or web address] [facility] [place] [address] [facility] [address], [place], [address], 07/09/2024 15:13:37 Result Notes None recorded. 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 352761954 Active 2022 Not Available [employer] 4 06:04:23 Prediabet es 707207819 Active 2022 Not Available [facility] 4 06:04:23 Chronic kidney disease 920133147 Active 2022 Not Available [facility] 4 06:04:23 Gastroeso phageal reflux disease without esophagit is 044658708 Active 2022 Not Available [facility] 4 06:04:23 Vitamin D deficienc y 45872063 Active 2022 Not Available [facility] 4 06:04:23 Acute sinusitis 62505080 Active 2022 Not Available [facility] 4 06:04:23 Decreased hearing 797466259 Active 2022 Not Available [facility] 4 06:04:23 Cough 92129834 Active 2022 Not Available [facility] 4 06:04:23 Recurrent acute otitis media 549914551 Active 2022 Not Available [facility] 4 06:04:23 Upper respirato ry infection 19218396 Active 2022 Not Available [facility] 4 06:04:23 Pain of bilateral knee joints 26304058737 4104 Active 2023 KAYLEE HillsA null, [place] [employer] [facility] 4 11:18:46 Bilateral osteoarth ritis of knees 21406481961 9107 Active 2023 SIXTO Andrade [address], [place], [address] , [employer] [facility] 4 11:49:15 Bilateral shoulder joint pain 93514746274 260663 Active 2023 KAYLEE HillsA null, [place] [employer] [facility] 4 10:49:41 Bilateral shoulder osteoarth ritis 83589462397 9108 Active 2023 SIXTO Andrade [address], [address], [place], [address] , [employer] [facility] 4 12:27:12 Osteoarth ritis of bilateral glenohume ral joints 10031928054 97647 Active 2023 SIXTO Andrade [address], [address], [place], [address] , [facility] 4 11:23:12 Pain of right shoulder joint 50967970392 369687 Active 2023 Mildred FernandezSWATHI null, [facility] 4 10:37:33 Acute sinusitis 09663472 Completed Ninfa Roy, [employer] [address], [place], [address] , [facility] 3 11:52:40 Body mass index 30+ - obesity 800627961 Active 2018 Not Available [facility] 4 06:04:23 On examinati on - breast lump- axillary tail Completed Not Available [facility] 3 04:52:31 Urine: dark/conc entrated 161624531 Completed Not Available [facility] 3 04:52:31 Lymphaden itis 01553329 Completed Not Available [facility] 3 04:52:31 Osteoarth ritis of knee 960341076 Active Not Available [facility] 4 06:04:23 Syncope 102316152 Completed Not Available [facility] 3 04:52:31 Renal pain 100490040 Completed Not Available [facility] 3 04:52:31 Malodorou s urine 051819774 Completed Not Available [facility] 3 04:52:31 Injury of ribs 244309334 Completed Not Available [facility] 3 04:52:31 Dehydrati on 61794541 Completed Not Available [facility] 3 04:52:31 Sinusitis 12502663 Completed Not Available [facility] 3 04:52:31 Migraine 55955995 Active Not Available [facility] 4 06:04:23 Hypertens jesse disorder 91928917 Completed Not Available [facility] 3 04:52:32 Osteoarth ritis 282072921 Active Not Available [facility] 4 06:04:23 Gastric ulcer 690535259 Active 2020 Not Available [facility] 4 06:04:23 Body mass index 40+ - severely obese 443595555 Active Not Available [facility] 4 06:04:23 Hypothyro idism 77812620 Active Not Available [facility] 4 06:04:23 Acute lymphaden itis 01361492 Completed Not Available [facility] 3 04:52:32 Femoral bruit 568541592 Completed Not Available [facility] 3 04:52:32 Chronic progressi ve renal failure 186407176 Active Not Available [facility] 4 06:04:23 Disorder of kidney and/or ureter 309466779 Active Not Available [facility] 4 06:04:23 Shoulder pain 89035287 Active Not Available [facility] 4 06:04:23 Allergic conjuncti vitis 424367340 Completed Not Available [facility] 3 04:52:33 Cough 06036063 Completed [facility]anna [facility] [employer] 3 11:57:03 Coronary arteriosc lerosis 61949493 Active Not Available [facility] 4 06:04:23 Upper respirato ry infection 93142777 Completed Arianna ovied[facility] [employer] 3 14:52:22 Hyperlipi demia 02066713 Active Not Available [facility] 4 06:04:23 Essential hypertens ion 45927598 Active Not Available [facility] 4 06:04:23 Allergic rhinitis 93299907 Active Not Available [facility] 4 06:04:23 Otitis media 86090195 Completed Not Available [facility] 3 04:52:34 Nasal congestio n 74592452 Completed Not Available [facility] 3 04:52:34 Spinal stenosis in cervical region 00276601 Active 2021 Not Available [facility] 4 06:04:23 Problem Notes None recorded. Procedures Surgical History Date Name Laterality Status Provider Name and Address Organization Details Recorded Time 12/11/19 Medicare Wellness CPT Code, subsequent completed Laney Cannon RN [facility] [employer] 12/10/2022 12:19:54 09/11/19 Transitional_Care _Management completed SYLVAIN Blum [address] [place] [address], [facility] [address], [place], [address], [facility] [employer] 09/10/2022 12:51:28 10/07/19 17 Eye Surgery completed Not Available [facility] 08/02/19 04:42:10 other completed Not Available [facility] 06/2022 04:42:10 other completed Mildred Fernandez CNA [place] [employer] 07/02/2023 11:15:58 oophorectomy completed Not Available [facility] 08/01/2022 04:42:10 Lumpectomy completed Not Available [facility] 08/01/2022 04:42:10 Tonsillectomy completed Not Available [facility] 08/01/2022 04:42:10 Hysterectomy completed Not Available [facility] 08/01/2022 04:42:10 Cataract Surgery completed Not Available [facility] 08/01/2022 04:42:10 adenoid excision completed Not Available [facility] 08/01/2022 04:42:10 Imaging Results Imaging Date Name Status LastModified by Organiz ation Details LastModified Time 03/06/2024 XR, shoulder completed [email or web address] [facility] [place] [address], [place], [address], 03/06/2024 12:47:13 07/09/2024 XR, knee completed [email or web address] [facility] [place] [address], [place], [address], 07/09/2024 15:13:37 Procedure Notes None recorded. Medical Equipment None Reported. Allergies Allergen ID Allergen Name Allergen Category Reaction Reaction Severity Criticality Documentation Date Start Date Code Code System Note Provider Name and Address Organization Details Recorded Time 8919 Vioxx medicatio n myalgias (muscle pain) Not available Not available 08/01/2022 60529 9 RxNorm Not Available [facility] 3 05:06:46 8920 Medicinal product containin g quinolone and acting as antibacte rial agent (product) medicatio n anaphylax is severe Not available 08/01/2022 70779 008 SNOMED Not Available [facility] 3 05:06:46 8921 Levaquin medicatio n other severe Not available 08/01/20222014 44742 2 RxNorm BLOOD PRESS URE DROPP ED Not Available [facility] 3 05:06:46 8922 Arthrotec medicatio n Not available Not available Not available 08/01/2022 74468 RxNorm STOMA CH PAIN Not Available [facility] 3 05:06:46 8923 adhesive environme nt,medica tion Not available Not available Not available 08/01/2022 81520 UNK TAPE Not Available [facility] 3 05:06:46 Medications Name Sig Start Date Stop Date Status Note LastModified by Organization Details LastModified Time cyclobenz aprine 10 mg tablet TAKE 1 TABLET BY MOUTH EVERY 12 HOURS NEEDED FOR MUSCLE SPASM active Not Available Not Available No t Available Mag-G 27 mg magnesium (500 mg) tablet Take 1 tablet twice a day by oral route. 2012 active Not Available Not Available Not Avai lable neomycin- polymyxin -hydrocor t 3.5 mg/mL-10, 000 unit/mL-1 % ear solution 02/05 completed Not Available Not Available Not Available prednison e 10 mg tablet TAKE 1 TAB 3 TIMES A DAY X3 DAYS, 1 TAB TWICE DAILY X2 DAYS, 1 TAB DAILY X1 DAY active Not Available Not Available No t Available doxycycli ne hyclate 100 mg capsule TAKE 1 CAPSULE BY MOUTH TWICE A DAY FOR 10 DAYS 03/11 completed Not Available Not Available Not Available Depo-Medr ol 40 mg/mL suspensio n for injection 08/06 completed Not Available Not Available Not Available tizanidin e 2 mg tablet 05/22 completed Not Available Not Available Not Available Klor-Con 10 mEq tablet,ex tended release active Not Available Not Available Not Available clindamyc in HCl 300 mg capsule TAKE 1 CAPSULE BY MOUTH THREE TIMES A DAY active Not Available Not Available No t Available azithromy yanira 250 mg tablet TAKE 2 TABLETS (500 MG) BY ORAL ROUTE ONCE DAILY FOR 1 DAY THEN 1 TABLET (250 MG) BY ORAL ROUTE ONCE DAILY FOR 4 DAYS active Not Available Not Available No t Available Coricidin HBP Cough and Cold 4 mg-30 mg tablet Take 1 tablet every 6 hours by oral route as directed for 15 days. active Not Available Not Available No t Available benzonata te 200 mg capsule TAKE 1 CAPSULE BY MOUTH THREE TIMES A DAY 06/10 completed Not Available Not Available Not Available Patanol 0.1 % eye drops INSTILL 1 DROP INTO AFFECTED EYE(S) BY OPHTHALM IC ROUTE 2 TIMES PER DAY AT AN INTERVAL OF 6 TO 8 HOURS active Not Available Not Available No t Available hydrocodo ne 5 mg-acetam inophen 325 mg tablet TAKE 1 TABLET BY MOUTH EVERY 6 (SIX) HOURS NEEDED FOR ACUTE PAIN < 7 DAY SUPPLY active Not Available Not Available No t Available Synthroid 150 mcg tablet Take 1 tablet every day by oral route for 90 days. 07/08 completed Not Available Not Available Not Available meloxicam 15 mg tablet TAKE 1 TABLET BY MOUTH EVERY DAY NEEDED WITH FOOD 2022 active Not Available Not Available Not Avai lable lisinopri l 20 mg tablet TAKE 1 TABLET BY MOUTH EVERY DAY 09/10 completed Not Available Not Available Not Available bupivacai ne HCl 0.5 % (5 mg/mL) injection solution Take 40 mg by injectio n route. 2024 active Not Available Not Available Not Avai lable isosorbid e mononitra te ER 30 mg tablet,ex tended release 24 hr 10/11 completed Not Available Not Available Not Available metronida zole 500 mg tablet active Not Available Not Available No t Available acetamino phen 300 mg-codein e 30 mg tablet Take 1 po tid prn pain 03/21 completed Not Available Not Available Not Available amlodipin e 5 mg tablet TAKE 1 TABLET DAILY (DUE FOR FOLLOW UP) active Not Available Not Available No t Available tramadol 50 mg tablet TAKE 1 TABLET (50 MG) ORALLY EVERY 8 HOURS NEEDED FOR PAIN active Not Available Not Available No t Available triamtere ne 37.5 mg-hydroc hlorothia zide 25 mg capsule TAKE 1 CAPSULE DAILY 03/05 completed KIDNEY FUNCTION DECREASE , HCTZ LOWERED TO 12.5 MG Not Available Not Available Not Available levothyro xine 75 mcg tablet TAKE 1 TABLET BY MOUTH EVERY DAY active Not Available Not Available No t Available Kenalog 40 mg/mL suspensio n for injection active [facility]#: [id number] 08-28 Not Available Not Available Not Available prednison e 10 mg tablets in a dose pack Take 1 tab by mouth, 3 times a day for 3 daysTake 1 tab by mouth 2 times a day for 2 daysTake 1 tab by mouth once a day for 1 day 2023 active Not Available Not Available Not Avai lable Celebrex 200 mg capsule Take 1 capsule every day by oral route for 90 days. active Not Available Not Available No t Available levothyro xine 100 mcg tablet TAKE 1 TABLET BY MOUTH EVERY DAY active Not Available Not Available No t Available amoxicill in 875 mg tablet active Not Available Not Available Not Available methocarb irene 750 mg tablet 07/02 completed Not Available Not Available Not Available Nitrostat 0.4 mg sublingua l tablet 07/02 completed Not Available Not Available Not Available Naphcon-A 0.025 %-0.3 % eye drops 1 GTT IN AFFECTED EYE QID PRN active Not Available Not Available No t Available Kenalog 10 mg/mL suspensio n for injection Take 40 mg by injectio n route. 2024 active [facility]: [phone] 09-20 Not Available Not Available Not Available benzonata te 100 mg capsule TK ONE C PO Q 4-6 H UTD active Not Available Not Available No t Available prednison e 2.5 mg tablet PLEASE SEE ATTACHED FOR DETAILED DIRECTIO NS active Not Available Not Available No t Available cephalexi n 500 mg capsule Take 1 capsule 3 times a day by oral route. active Not Available Not Available No t Available pantopraz ole 40 mg tablet,de layed release TAKE 1 TABLET BY MOUTH EVERY DAY IN THE MORNING active Not Available Not Available No t Available levothyro xine 125 mcg tablet TAKE 1 TABLET BY MOUTH EVERY DAY active Not Available Not Available No t Available neomycin- polymyxin -dexameth 3.5 mg/mL-10, 000 unit/mL-0 .1% eye drops 04/28 completed Not Available Not Available Not Available lisinopri l 10 mg tablet active Not Available Not Available Not Available hydrochlo rothiazid e 12.5 mg capsule TAKE 1 CAPSULE DAILY 08/15 completed Not Available Not Available Not Available betametha sone dipropion ate 0.05 % topical cream APPY A THIN LAYER BID active Not Available Not Available No t Available aspirin 81 mg chewable tablet Chew 1 tablet every day by oral route for 30 days. 2012 active Not Available Not Available Not Avai lable lisinopri l 5 mg tablet Take 1 tablet every day by oral route. active Not Available Not Available No t Available hydrochlo rothiazid e 25 mg tablet TAKE 1 TABLET BY MOUTH EVERY DAY active Not Available Not Available No t Available furosemid e 20 mg tablet TAKE 1 TABLET BY MOUTH EVERY DAY NEEDED active Not Available Not Available No t Available metoprolo l succinate ER 25 mg tablet,ex tended release 24 hr active Not Available Not Available Not Available ergocalci ferol (vitamin D2) 1,250 mcg (50,000 unit) capsule TK 1 C PO WEEKLY 07/08 completed Not Available Not Available Not Available levofloxa yanira 500 mg tablet active Not Available Not Available No t Available methylpre dnisolone 4 mg tablets in a dose pack TAKE PER PACKAGE INSERT active Not Available Not Available No t Available albuterol sulfate HFA 90 mcg/actua tion aerosol inhaler TAKE 2 PUFFS BY MOUTH EVERY 4 TO 6 HOURS NEEDED active Not Available Not Available No t Available celecoxib 100 mg capsule 1 capsule once a day active not taking Not Available Not Available Not Available lisinopri l 40 mg tablet TAKE 1 TABLET BY MOUTH EVERY DAY active Not Available Not Available No t Available cefdinir 300 mg capsule active Not Available Not Available Not Available fluticaso ne propionat e 50 mcg/actua tion nasal spray,eliel pension INSTILL 2 SPRAYS INTO EACH NOSTRIL ONCE DAILY active Not Available Not Available No t Available doxycycli ne hyclate 100 mg tablet Take 1 tablet twice a day by oral route for 10 days. active Not Available Not Available No t Available calcitrio l 0.25 mcg capsule TAKE 1 CAPSULE BY MOUTH EVERY DAY active Not Available Not Available No t Available amoxicill in 875 mg-potass ium clavulana te 125 mg tablet TAKE 1 TABLET BY MOUTH EVERY 12 HOURS FOR 7 DAYS 06/10 completed Not Available Not Available Not Available tobramyci n 0.3 %-dexamet hasone 0.1 % eye drops,eliel pension 07/02 completed Not Available Not Available Not Available neomycin 3.5 mg/g-poly myxin B 10,000 unit/g-de xameth 0.1 % eye oint 04/28 completed Not Available Not Available Not Available neomycin- polymyxin -hydrocor t 3.5 mg-10,000 unit/mL-1 % ear drops,eliel p 05/22 completed Not Available Not Available Not Available Synthroid 137 mcg tablet TK 1 T PO QD. 05/24 completed INCREASE D TO 150MCG Not Available Not Available Not Available Vitamin D3 25 mcg (1,000 unit) capsule Take 1 capsule every day by oral route. 2012 active Not Available Not Available Not Avai lable Restasis 0.05 % eye drops in a dropperet te 04/28 completed Not Available Not Available Not Available Vigamox 0.5 % eye drops 04/28 completed Not Available Not Available Not Available rosuvasta tin 5 mg tablet TAKE 1 TABLET BY MOUTH EVERYDAY AT BEDTIME active Not Available Not Available No t Available Marcaine (PF) 0.5 % (5 mg/mL) injection solution Take 40 mL by injectio n route. 2023 active Not Available Not Available Not Avai lable ORTHOVISC 30 mg/2 mL intra-art icular syringe Inject 4 mL every week by intra-ar ticular route. 2023 active Not Available Not Available Not Avai lable duloxetin e 30 mg capsule,d elayed release TAKE 1 CAPSULE BY MOUTH TWICE A DAY active Not Available Not Available No t Available Sarna Original 0.5 %-0.5 % lotion Use as directed 05/22 completed Not Available Not Available Not Available Fish Oil 1200 mg once a day 2014 active Not Available Not Available Not Avai lable Centrum Silver daily 2014 active Not Available Not Available Not Avai lable magnesium , potassium aspartate 2021 active Not Available Not Available Not Avai lable Leg Cramp Relief 2021 active Not Available Not Available Not Avai lable tramadol ER 100 mg tablet,ex tended release 24 hr 04/08 completed Not Available Not Available Not Available tramadol ER 200 mg tablet,ex tended release 24 hr TAKE 1 TABLET BY MOUTH ONCE DAILY 02/05 completed Not Available Not Available Not Available hydrochlo rothiazid e 12.5 mg tablet TAKE 1 TABLET BY MOUTH EVERY DAY 09/10 completed Not Available Not Available Not Available CoQ-10 1 po qd 05/22 completed Not Available Not Available Not Available Bystolic 2.5 mg tablet active Not Available Not Available Not Available diclofena c 1 % topical gel APPLY 1-2 PUMPS TO THE SKIN TWICE DAILY NEEDED 07/02 completed Not Available Not Available Not Available Body, Hair, Skin and Nails daily 07/02 completed Not Available Not Available Not Available GaviLyte- N 420 gram oral solution 01/24 completed Not Available Not Available Not Available cetyl myristole ate (bulk) 20 % powder compound ed med active Not Available Not Available No t Available Osteo Bi-Flex 1 POQD 2012 active Not Available Not Available Not Avai lable Eliquis 5 mg tablet TAKE 1 TABLET BY MOUTH TWICE A DAY active Not Available Not Available No t Available Fluzone High-Dose (PF) 180 mcg/0.5 mL intramusc ular syringe active Not Available Not Available Not Available Narcan 4 mg/actuat ion nasal spray USE DIRECTED NASALLY NEEDED 07/02 completed Not Available Not Available Not Available Shingrix (PF) 50 mcg/0.5 mL intramusc ular suspensio n, kit 01/24 completed Not Available Not Available Not Available Ozempic 0.25 mg or 0.5 mg (2 mg/1.5 mL) subcutane ous pen injector INJECT 0.25 MG UNDER THE SKIN ONE TIME WEEKLY FOR 4 WEEKS THEN INJECT 0.5 MG WEEKLY THERAFTE R 06/10 completed Not Available Not Available Not Available Fluzone High-Dose (PF) 180 mcg/0.5 mL intramusc ular syringe PHARMACI ST ADMINIST ERED IMMUNIZA TION ADMINIST ERED AT TIME OF DISPENSI NG 12/20 completed Not Available Not Available Not Available Fluzone High-Dose Quad (PF) 240 mcg/0.7 mL IM syringe TO BE ADMINIST ERED BY PHYLLIS SOLORIO FOR IMMUNIZA TION 08/15 completed Not Available Not Available Not Available Ozempic 0.25 mg or 0.5 mg (2 mg/3 mL) subcutane ous pen injector Inject by subcutan eous route for 30 days. 06/10 completed Not Available Not Available Not Available Vitals Date Recorded Body height Body mass index (BMI) Body weight Provider Name and Address Organization Details Last Updated DateTime 01/30/2024 152.4 cm 46.5 kg/m2 060720.98 g Mildred Jim, [employer] P[employer] 01/30/2024 11:00:06 Date Recorded Body height Provider Name an d Address Organization Details Last Updated DateTime 02/10/2024 152.4 cm Theresa Jimenez [employer] 02/10/2024 09:42:35 Date Recorded Body height Body mass index (BMI) Body weight Provider Name and Address Organization Details Last Updated DateTime 03/06/2024 152.4 cm 46.5 kg/m2 171317.98 g Mildred Jim, [employer]ODUCTION P[employer] 03/06/2024 10:37:02 Date Recorded Body height Body mass index (BMI) Body weight Provider Name and Address Organization Details Last Updated DateTime 04/14/2024 152.4 cm 45.9 kg/m2 477625.21 g Mildred Jim, [employer]ODUCTION P[employer] 04/14/2024 14:18:04 Date Recorded Body height Body mass index (BMI) Body weight Provider Name and Address Organization Details Last Updated DateTime 07/09/2024 152.4 cm 46.9 kg/m2 396112.17 g Mildred Jim, [employer] P[employer] 07/09/2024 13:49:51 Social History Question Answer Notes LastModified by Organization Details LastModified Time Tobacco Smoking Status Former Smoker quit age 51 Lydia oviedo [employer] [facility] [employer] 07/02/2023 11:00:35 Do You Have An Advance Directive? Yes [id number] Information not available 08/01/2022 What Is Your Level Of Alcohol Consumption? None [id number] Information not available 08/01/2022 Are You Blind Or Do You Have Difficulty Seeing? No [email or web address] Information not available 07/02/2023 What Is Your Level Of Caffeine Consumption? Moderate [id number] Information not available 08/01/2022 How Much Tobacco Do You Chew? None [id number] Information not available 08/01/2022 In The 14 Days Before Symptom Onset, Have You Had Close Contact With A Laboratory-confi rmed COVID-19 While That Case Was Ill? No Information not available 07/02/2023 In The 14 Days Before Symptom Onset, Have You Had Close Contact With A Person Who Is Under Investigation For COVID-19 While That Person Was Ill? No [email or web address] Information not available 07/02/2023 Are You Deaf Or Do You Have Serious Difficulty Hearing? No [email or web address] Information not available 07/02/2023 What Type Of Diet Are You Following? REGULAR [id number] Information not available 08/01/2022 Which Illicit Or Recreational Drugs Have You Used? No [email or web address] Information not available 07/02/2023 What Is The Highest Grade Or Level Of School You Have Completed Or The Highest Degree You Have Received? 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 No [email or web address] Information not available 07/02/2023 What Is The Fluoride Status Of Your Home? Unknown [email or web address] Information not available 07/02/2023 When Did You Quit Smoking? 16+yearssincelastci noemí Information not available 07/02/2023 Are There Any Guns Present In Your Home? No [email or web address] Information not available 07/02/2023 Do You Use Insect Repellent Routinely? No [email or web address] Information not available 07/02/2023 Where Do You Live? SingleLevelHouse Information not available 07/02/2023 Presence Of Domestic Violence No Information not available 12/10/2022 Guns Present In The Home? No Information not available 12/10/2022 Are You Able To Care For Yourself? Yes Information not available 12/10/2022 Are You Blind Or Do Yo Have Difficulty Seeing? No Information not available 12/10/2022 Are You Deaf Or Do You Have Serious Difficulty Hearing? No Information not available 12/10/2022 General Stress Level? Low Information not available 12/10/2022 Live Alone Of With Others? With Others Information not available 12/10/2022 Do You Have A Medical Power Of Computer Technician? Yes [email or web address] Information not available 07/02/2023 What Was The Date Of Your Most Recent Tobacco Screening? 06/10/2023 [email or web address] Information not available 07/02/2023 Do You Have Any Pets? No [email or web address] Information not available 07/02/2023 What Is Your Relationship Status? [id number] Information not available 08/01/2022 Do You Use Your Seat Belt Or Car Seat Routinely? Yes [email or web address] Information not available 07/02/2023 Do You Have Smoke And Carbon Monoxide Detectors In Your Home? Yes [email or web address] Information not available 07/02/2023 Are You Passively Exposed To Smoke? No [email or web address] Information not available 07/02/2023 Are There Any Smokers In Your House? No [email or web address] Information not available 07/02/2023 How Much Tobacco Do You Smoke? No [id number] [id number] Information not available 08/01/2022 Do You Feel Stressed (tense, Restless, Nervous, Or Anxious, Or Unable To Sleep At Night)? [id number] Information not available 07/02/2023 Do You Use Any Illicit Or Recreational Drugs? No [email or web address] Information not available 07/02/2023 Do You Use Sunscreen Routinely? No [email or web address] Information not available 07/02/2023 Has Tobacco Cessation Counseling Been Provided? No [email or web address] Information not available 07/02/2023 How Many Years Have You Smoked Tobacco? 30 [email or web address] Information not available 07/02/2023 Have You Recently Traveled Abroad? No [email or web address] Information not available 07/02/2023 Do You Have Any Dietary Restrictions? No [email or web address] Information not available 07/02/2023 Do You Or Have You Ever Used Any Other Forms Of Tobacco Or Nicotine? No [email or web address] Information not available 07/02/2023 Sex: Female Functional Status Question Answer Note LastModified by Organizat ion Details LastModified Time Do you have difficulty walking or climbing stairs? Yes arthritis [email or web address] Information not available 07/02/2023 Do you have transportation difficulties? No [email or web address] Information not available 07/02/2023 Are you able to walk? YESWOREST [email or web address] Information not available 07/02/2023 Do you have difficulty doing errands alone? No [email or web address] Information not available 07/02/2023 Are you able to care for yourself? Yes [email or web address] Information n ot available 07/02/2023 Do you have difficulty dressing or bathing? No Information not available 07/02/2023 What is your exercise level? None Information not available 12/10/2022 Mental Status Question Answer Note LastModified by Organization D etails LastModified Time Do you have difficulty concentrating, remembering or making decisions? No [email or web address] Information no t available 07/02/2023 Family History Relationship Description Onset Age of this Age Resolved Age Notes LastModified by Organization Details LastModified Time Father Neoplasm of brain [email or web address] Not available 2023 10:55:40 Father Family history of malignant neoplasm [email or web address] Not available 2023 10:55:40 Paternal Grandmother Malignant tumor of colon [email or web address] Not available 2023 10:55:40 Mother Myocardial infarction [id number] Not available 08/01/2022 04:42:14 Mother Cerebrovascu lar accident [email or web address] Not available 10:55:40 Mother Heart disease [email or web address] Not available 2023 11:14:47 Mother Family history of stroke [email or web address] Not available 2023 10:55:40 Brother Myocardial infarction [id number] Not available 08/01/2022 04:42:14 Maternal Grandmother Myocardial infarction MIGRATION.026 [id number] Not available 08/01/2022 04:42:14 Sister Myocardial infarction [id number] Not available 08/01/2022 04:42:14 Medical History Condition Response ARTHRITIS Y OBESITY Y USE OF BLOOD THINNERS Y VASCULAR DISEASE Y BLOOD CLOTS Y HEART DISEASE/HEART PROBLEMS Y OSTEOPOROSIS Y HYPERTENSION Y HIGH CHOLESTEROL / HYPERLIPIDEMIA Y Gynecological HistoryNo gynecological history recorded. Obstetrics History GPAL:G 0 P 0 0 0 0 Immunizations Vaccine Type Date Status Note Provider Nam e and Address Organization Details Recorded Time influenza, unspecified formulation 3 completed Not Available [facility] 06/15/2023 06:04:24 Influenza, split virus, trivalent, PF 3 completed Not Available [facility] 06/15/2023 06:04:24 Influenza, split virus, trivalent, preservative 5 completed Not Available [facility] 06/15/2023 06:04:24 Influenza, split virus, quadrivalent, preservative 2 completed Not Available [facility] 06/15/2023 06:04:24 COVID-19, mRNA, LNP-S, PF, 100 mcg/0.5mL dose or 50 mcg/0.25mL dose 1 completed Not Available [facility] 06/15/2023 06:04:24 Influenza, split virus, quadrivalent, preservative 1 completed Not Available [facility] 06/15/2023 06:04:24 COVID-19, mRNA, LNP-S, PF, 100 mcg/0.5mL dose or 50 mcg/0.25mL dose 1 completed Not Available [facility] 06/15/2023 06:04:24 COVID-19, mRNA, LNP-S, PF, 100 mcg/0.5mL dose or 50 mcg/0.25mL dose 1 completed Not Available [facility] 06/15/2023 06:04:24 Influenza, split virus, quadrivalent, preservative 8 completed Not Available [facility] 06/15/2023 06:04:24 Influenza, high-dose, trivalent, PF 6 completed Not Available [facility] 06/15/2023 06:04:24 Pneumococcal conjugate PCV 13 5 completed Not Available [facility] 06/15/2023 06:04:24 Influenza, split virus, trivalent, preservative 4 completed Not Available [facility] 06/15/2023 06:04:24 Influenza, split virus, trivalent, preservative 2 completed Not Available [facility] 06/15/2023 06:04:24 pneumococcal polysaccharide PPV23 1 completed Not Available [facility] 06/15/2023 06:04:24 zoster live 9 completed Not Available [facility] 06/15/2023 06:04:24 pneumococcal polysaccharide PPV23 6 completed Not Available [facility] 06/15/2023 06:04:24 Tdap 7 completed Not Available [facility] 06/15/2023 06:04:24 Pneumococcal conjugate PCV 13 5 completed Not Available [facility] 06/15/2023 06:04:24 Past Encounters Encounter ID Performer Location Encounter Start Date Encounter Closed Date Diagnosis/Indication Diagnosis SNOMED-CT Code Diagnosis ICD10 Code Diagnosis Note [id number] [facility] Mary Jane Stephenson, [place] [address] 08/15/2020 00:00:00 08/15/2020 09:58:40 [id number] _ATHENA_M IGRATION_ DEFAULT_1 _1 , 10/13/2020 00:00:00 10/13/2020 10:12:30 [id number] _ATHENA_M IGRATION_ DEFAULT_1 _1 , 10/20/2020 00:00:00 10/20/2020 10:04:21 [id number] _ATHENA_M IGRATION_ DEFAULT_1 _1 , 10/27/2020 00:00:00 10/27/2020 10:12:15 [id number] _ATHENA_M IGRATION_ DEFAULT_1 _1 , 11/03/2020 00:00:00 11/03/2020 09:57:42 [id number] _ATHENA_M IGRATION_ DEFAULT_1 _1 , 11/10/2020 00:00:00 11/10/2020 09:52:41 [id number] [facility] Mary Jane Fernandez[address], [place] [address] 01/24/2021 00:00:00 01/24/2021 09:22:24 [id number] [facility] [place] [address] , [place] [address] 04/24/2021 00:00:00 04/24/2021 09:53:21 [id number] [facility] [place] [address] , [place] [address] 07/04/2021 00:00:00 07/04/2021 15:54:20 [id number] [facility] [place] [address] , [place] [address] 10/23/2021 00:00:00 10/23/2021 11:32:23 [id number] [facility] [place] [address] , [place] [address] 04/03/2022 00:00:00 04/03/2022 11:25:51 [id number] [facility] [address] [address] 05/22/2022 00:00:00 05/22/2022 12:17:25 [id number] [facility] [place] [address] [place], [place] [address]e., [address] [address] 06/14/2022 00:00:00 06/14/2022 11:16:02 [id number] [facility] [place] [address] [address] 07/19/2022 00:00:00 07/19/2022 11:11:16 [id number] [facility] [place] [address] [place] [address] Ave[address] [address] 07/30/2022 00:00:00 07/30/2022 16:46:54 [id number] SYLVAIN Blum [facility] [place] [address] [address] 09/10/2022 11:54:25 09/10/2022 12:30:06 Transition of care [id number] 105 Z75.8 Transition Care Management Questionna ireDate of Discharge 08/27/22Adm ission Date: 08/26/22Dat e of Contact: 1st attempt: 08/29/22Rea son for Admission: SyncopeDis charge Facility Name: [facility] Facility Type inpatient acute care [facility] Diagnosis( es): SyncopeDia gnostic Test(s) Performed: CT (head and cervical spine), cardiovasc ular testing (EKG, lab work, loop recorder implanted) , Other: urinalysis Did your hospital physician prescribe any new medicines upon discharge? noDid you pick pack worker your prescripti on(s) and begin taking them as the doctor prescribed ? (N/A)Do you have any questions about your new medication s? (N/A)Did the hospital set up a follow up appointmen t with your PCP? no (Patient already had appointmen t scheduled for 09/10/22.)D id the hospital set up an appointmen t up with any specialist s? no (Cardiolog y follow-up on 08/31/22)Di d the hospital set up Home Health Care or Outpatient therapy? noDid the hospital set you up with any equipment before discharge? noDo you have all the equipment you need to perform daily living activities ? yesPerform ed by: (include credential s) Dedra Cannon RN Syncope and collapse 309 107167 R55 s/p loop recorder placementi s not to drive at this time per cardiology ordersfoll ows cardiology - Dr. Archer Deep venou s thrombosis of lower extremity 608824724 I82.409 on Eliquis from cardiology now following hematology - Dr. Ortega/Dr. Angeles Prediabetes 014267098 R7 3.03 continue to hold the ozempic for now until we get her heart figured out pt is aware of side effects, risks, benefitspt denies any personal or family history of MEN II or MTC, denies and personal history of pancreatit ispt knows to call the office if any severe n/v or abdominal pain Essential hypertension 92440988 I10 On lisinopril and HCTZManage d by Cardiology Hyperlipidemia 87076279 E78.5 On rosuvastat in Hypothyroidism 85870162 E03.9 On levothyrox ine Spinal last nosis in cervical region 19929174 M48.02 Follows pain management - IPCfollows neurosurge on- Dr. 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 Archer Deep venou s thrombosis of lower extremity 928962401 I82.409 on Eliquis from cardiology now following hematology - Dr. Ortega/Dr. Angeles Prediabetes 641647860 R7 3.03 continue to hold the ozempic for now until we get her heart figured out pt is aware of side effects, risks, benefitspt denies any personal or family history of MEN II or MTC, denies and personal history of pancreatit ispt knows to call the office if any severe n/v or abdominal pain Essential hypertension 56281561 I10 On lisinopril and HCTZManage d by Cardiology Hyperlipidemia 94203186 E78.5 On rosuvastat in Hypothyroidism 55681564 E03.9 On levothyrox ine Spinal last nosis in cervical region 09311699 M48.02 Follows pain management - IPCfodionne neurosurge on- Dr. Oriana noriega dney disease 536438290 N18.9 Does not want to see nephrologi stOn calcitriol Gastroesop hageal reflux disease without esophagitis 721256744 K21.9 [facility] Vitamin D deficiency 347 43755 E55.9 On calcitriol Family his tory of cancer of colon 395424432 Z80.0 No further scopes needed secondary to age Acute sinusitis 07677062 J01.90 Start doxycyclin e and Flonase Call office if no improvemen t after med Adult heal th examination 723392564 Z00.00 Screening for disorder 645007619 Z13.9 [id number] SYLVAIN Blum [facility] [address] [facility], [address] [place] [address] 03/11/2023 11:46:58 03/11/2023 12:25:52 Syncope and collapse 762753994 R55 s/p loop recorder placementi s not to drive at this time per cardiology ordersfoll ows cardiology Deep venou s thrombosis of lower extremity 440673884 I82.409 on Eliquis from cardiology now following hematology - Dr. Angeles Prediabetes 887234863 R7 3.03 wants to try to restart the ozempic if insurance will cover pt is aware of side effects, risks, benefitspt denies any personal or family history of MEN II or MTC, denies and personal history of pancreatit ispt knows to call the office if any severe n/v or abdominal pain Essential hypertension 99181566 I10 On lisinopril and HCTZManage d by Cardiology - referral placed per her request to switch to Dr. Banks Hyperlipidemia 57941163 E78.5 On rosuvastat in Hypothyroidism 56738477 E03.9 On levothyrox ine Spinal last nosis in cervical region 53867881 M48.02 Follows pain management - IPC follows neurosurge on- Dr. Oriana Hubbard ki dney disease 351658184 N18.9 Does not want to see nephrologi st On calcitriol Gastroesop hageal reflux disease without esophagitis 586792681 K21.9 On pantoprazo le from GI Follows Dr. Campbell Vitamin D deficiency 347 95012 E55.9 On calcitriol Family his tory of cancer of colon 664026458 Z80.0 No further scopes needed secondary to age Recurrent acute otitis media 447860651 H65.199 following ENT- Dr. Coyne/aranza tubes, follows up with them again later this week [id number] SYLVAIN Blum [facility] Med [address] [place] [address] 06/10/2023 11:28:56 06/10/2023 12:25:41 Syncope and collapse 083100858 R55 s/p loop recorder placementi s not to drive at this time per cardiology ordersfoll ows cardiology Deep venou s thrombosis of lower extremity 672016228 I82.409 on Eliquis from cardiology now following hematology - Dr. Angeles Prediabetes 270645665 R7 3.03 working on lifestyle measures Essential hypertension 48120416 I10 On lisinopril and HCTZManage d by Cardiology - referral placed per her request to switch to Dr. Banks Hyperlipidemia 50959724 E78.5 On rosuvastat in Hypothyroidism 40577248 E03.9 On levothyrox inerepeat labs today Spinal last nosis in cervical region 90024111 M48.02 Follows pain management - IPC follows neurosurge on- Dr. Oriana Hubbard ki dney disease [id number] N18.9 Does not want to see nephrologi st On calcitriol Gastroesop hageal reflux disease without esophagitis [id number] K21.9 On pantoprazo le from GI Follows Dr. Campbell Vitamin D deficiency 347 93147 E55.9 On calcitriol Family his tory of cancer of colon [id number] Z80.0 No further scopes needed secondary to age Recurrent acute otitis media [id number] H65.199 following ENT- Dr. Coyne/p tubes [id number] SIXTO Andrade [facility] [place] [address] [place] [address] 07/02/2023 10:57:49 07/02/2023 11:55:28 Pain of bilateral knee joints [id number] 54221 M25.561 M25.562 Bilateral osteoarthritis of knees 7300663991 50745 M17.0 [id number] SIXTO Andrade [facility] [place] [address] [place] [address] 07/19/2023 14:33:41 07/19/2023 15:32:04 Bilateral osteoarthritis of knees [id number] 06700 M17.0 Pain of bi lateral knee joints 0236678062 02415 M25.561 M25.022 [id number] SIXTO Andrade [facility] [place] [address] [place] [address] 07/25/2023 10:46:30 07/25/2023 11:43:27 Bilateral osteoarthritis of knees 0528426419 38718 M17.0 Pain of bi lateral knee joints 5828082335 18510 M25.561 M25.562 Bilateral shoulder joint pain 5846878563 1615534 M25.511 M25.512 Bilateral shoulder osteoarthritis 5931268925 70076 M19.011 M19.316 [id number] SIXTO Andrade [facility] [place] [address] [place] [address] 10/24/2023 10:54:29 10/24/2023 11:31:23 Bilateral shoulder osteoarthritis 1091382536 95812 M19.011 M19.012 Bilateral shoulder joint pain 7144562778 1805476 M25.511 M25.512 Bilateral osteoarthritis of knees 8098865101 52156 M17.0 [id number] [facility] [place] [address] [place] [address] 01/23/2024 10:59:48 01/23/2024 11:41:39 Bilateral osteoarthritis of knees 8581170806 00031 M17.0 Bilateral shoulder osteoarthritis 0573834184 08155 M19.011 M19.012 Bilateral shoulder joint pain 8248126563 5550684 M25.511 M25.512 Pain of bi lateral knee joints 4549024735 45957 M25.561 M25.534 [id number] SIXTO Andrade [facility] [place] [address] [place] [address] 01/30/2024 10:56:28 01/30/2024 12:38:24 Bilateral osteoarthritis of knees 1784597095 90204 M17.0 Pain of bi lateral knee joints 2087278987 03458 M25.561 M25.562 Osteoarthr itis of bilateral glenohumeral joints 7506217401 449771 M19.011 M19.114 [id number] SIXTO Andrade [facility] [place] [address] [place] [address] 02/10/2024 09:25:45 02/10/2024 10:26:13 Bilateral osteoarthritis of knees 6816683934 80618 M17.0 Pain of bi lateral knee joints 4683049679 10725 M25.561 M25.936 [id number] SIXTO Andrade [facility] [place] [address] [place] [address] 03/06/2024 10:34:54 03/06/2024 11:49:50 Bilateral shoulder osteoarthritis 2571302768 49773 M19.011 M19.012 Pain of ri ght shoulder joint 1498192950 4670851 M25.163 [id number] SIXTO Andrade [facility] [place] [address] [place] [address] 04/14/2024 14:15:19 04/14/2024 14:32:55 Bilateral osteoarthritis of knees 6328229924 09543 M17.0 Pain of bi lateral knee joints 9347249916 77515 M25.561 M25.730 [id number] SIXTO Andrade [facility] [place] [address] [place] [address] 07/09/2024 13:46:55 07/09/2024 14:13:39 Bilateral osteoarthritis of knees 4763881816 46504 M17.0 Bilateral shoulder joint pain 8699301569 2058160 M25.511 M25.512 Bilateral shoulder osteoarthritis 9014237423 99938 M19.011 M19.012 Pain of bi lateral knee joints 2327208089 32867 M25.561 M25.562 Health Concerns Section Related Observation LastModified by Organization Detai ls LastModified Time None Recorded Concern Status LastModified by Organization Details LastModified Time None Recorded Advance Directives Directive Y: Payers Encounter Date Sequence Insurance Name Policy Number Policy Michelle Covered Member ID Michelle Member ID Guarantor Name 01/30/2024 1 [place] Gunjan Diaz [id number] Gunjan Diaz 01/30/2024 2 [employer] - 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 (POS II) [id number] Gunjan Diaz [id number] Gunjan Diaz 02/10/2024 1 [place] Gunjan Diaz [id number] Gunjan Diaz 02/10/2024 2 [employer] - 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 (POS II) [id number] Gunjan Diaz [id number] Gunjan Diaz 03/06/2024 1 [place] Gunjan Diaz [id number] Gunjan Diaz 03/06/2024 2 [employer] - 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 (POS II) [id number] Gunjan Diaz [id number] Gunjan Diaz 04/14/2024 1 [place] Gunjan Diaz [id number] Gunjan Diaz 04/14/2024 2 [employer] - 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 (POS II) [id number] Gunjan Diaz [id number] Gunjan Diaz 07/09/2024 1 [place] Gunjan Diaz [id number] Gunjan Diaz 07/09/2024 2 [employer] - 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 (POS II) [id number] Gunjan Yu [employer] [id number] Gunjan Diaz Notes Date Note Type Note Provider Name and Address Organization Details Recorded Time 01/30/2024 text/html Patient returns for Orthovisc injection number 2 both knees. She had the 1st round last week we also injected both shoulder joints she has severe glenohumeral osteoarthritis. I also gave her a round of oral prednisone she states this helped tremendously with her shoulders they are feeling much better. Her knees still bother a little bit but are also doing better she denies any erythema effusion or signs of infection neither knee is walking more comfortably than she was previous to last week. SIXTO Andrade [address], [place], [address], [employer] 01/30/2024 11:23:34 02/10/2024 text/html Patient returns for Orthovisc injection number 3 both knees. She has severe primary osteoarthritis both knee joints right slightly worse than left with valgus deformities right worse than left. She states she is getting some relief in the left this is feeling pretty good the right still bothers her a bit she is going to give it more time see how the 3rd shot works for her. SIXTO Andrade [address], [place], [address], [employer] 02/10/2024 09:58:37 03/06/2024 text/html Patient returns she has had a recurrence of right shoulder pain. The last time she was seen for her shoulder was in July of this year. She has known severe lsqk-fi-kxhz glenohumeral osteoarthritis. She states recently she started having so much pain she can not sleep at night. She thought for awhile that possibly her shoulder was out of place although she denies any specific trauma or injury. She had a catching sensation in the shoulder that prevented her from doing almost any range of motion for awhile. She stated the pain was about a 9 on a scale 1-10 currently she has to sleep sitting upright because if she tries to lie down it really bothers her shoulder a lot. She denies any effusion or swelling no trauma that would cause subluxation or dislocation by her report. Denies any radicular pain down the arm the pain is all localized to the glenohumeral joint region. She can not take oral anti-inflammatory medication due to the fact that she is now on blood thinners she states previously when she had taken meloxicam this helped quite a bit she had taken naproxen and other anti-inflammatories as well. Currently she has tried some heat and ice which really did not help she comes in today for initial evaluation treatment of a flare of her right shoulder pain as described. We are going to get new x-rays today because she is having so much pain unlike she has previously experienced. SIXTO Andrade [address], [place], [address], [employer] 03/06/2024 12:47:57 04/14/2024 text/html Patient returns with bilateral knee pain she has severe ohsb-it-cjqw osteoarthritis in the lateral compartments with valgus deformities. She is not a good candidate for total knee arthroplasty due to multiple medical problems and high BMI she is 84 years of age as well. Shots of cortisone in her knees do help somewhat she would like to repeat those today denies any new problems with either knee it has been nearly 3 months since her last injections. She had gel shots last time states those worked a little bit but not getting the relief she is looking for she she would like cortisone again today. SIXTO Andrade [address], [place], [address], [employer] 04/14/2024 14:35:07 07/09/2024 text/html the patient retu rns complaining of bilateral knee pain and bilateral shoulder pain. She has known severe primary osteoarthritis of all 4 joints. She is due for new x-rays today we will get some updated x-rays to make sure she has no new findings it has been more than a year since her last x-rays. She has aching pain both knees and both shoulders, she notes she has a hard time standing or walking for long periods. She also has dysfunction in both shoulders due to rotator cuff tears and rotator cuff tear arthropathy with severe trfs-cg-asqj changes and hypertrophic spurring around the glenohumeral joints. She comes in every few months for cortisone injections her last knee joint injections were 3 months ago longer for her shoulders. She would like all 4 injections done today. She does take meloxicam chronically. The patient denies any new problems with either shoulder or knee. SIXTO Andrade [address], [place], [address], [employer] 07/09/2024 15:14:21 OBGyn Episode No OBEpisode recorded.
== END 2024-09-08 14:27 | disposition home or self-care (01) ==
LOC: ANHIMG 14:28
PROVIDERS: PCP Nurse Practitioner Adult Health; Visit Provider Nurse Practitioner Adult Health
DX: Z12.31 Encounter for screening mammogram for malignant neoplasm of breast (principal)
CPT/HCPCS: 77063; 77067

== ENCOUNTER 2024-11-26 11:06 | Outpatient (CLI) | payer MEDICARE, OTHER, SELFPAY ==
--- NOTE | ~2024-11-26 | XR_ITS ---
HISTORY: bilat feet pain and swelling, arthritis COMPARISON: None TECHNIQUE: 3 views of the right foot were performed FINDINGS: No acute fracture or dislocation is appreciated. Moderate degenerative disease is noted. The base of the fifth metatarsal is intact. Large calcaneal spur is noted. Ossification of the insertion of the Achilles tendon is present. Hallux varus deformity of the second third fourth and fifth toes are identified. Significant peripheral joint space narrowing within the DIP joints of the second third fourth and fif th toes. Moderate soft tissue swelling over the dorsum of the forefoot. IMPRESSION: Significant osteoarthritic change (as detailed above) with soft tissue swelling of the f orefoot, without acute fracture. Reviewed, dictated and finalized at location A. IMPRESSION: Significant osteoarthritic change (as detailed above) with soft ti ssue swelling of the forefoot, without acute fracture.
--- NOTE | ~2024-11-26 | XR_ITS ---
EXAM/ PROCEDURE: XR foot LT min 3V - 11/26/2024 11:12 CDT HISTORY: 84 years old Female with bilat feet pain and swelling, arthritis COMPARISON: None available TECHNIQUE: Three view(s) FINDINGS/ IMPRESSION: There are no fractures or dislocations.Joint space narrowing, subchondral sclerosis, subchondral cyst formation and osteophyte formation, compatible with mild osteoarthritis. Calcaneal enthesopathy. Reviewed, dictated and finalized at location A.
[2024-11-26 18:40] LABS: Alanine Aminotransferase 15 U/L (6-35); Albumin Level 4.6 g/dL (3.5-5.1); Alkaline Phosphatase 79 U/L (38-126); Anion Gap 11 mmol/L (4-12); Aspartate Amino Transferase 53 U/L (14-36); Blood Urea Nitrogen 28 mg/dL (7-17); Calcium 10.7 mg/dL (8.4-10.2); Carbon Dioxide 28 mmol/L (22-30); Chloride 101 mmol/L (98-107); Cholesterol 164 mg/dL (0-200); Estimated Glomerular Filt Rate 35; Glucose 103 mg/dL (65-110); HDL Direct 54 mg/dL; Magnesium 2.7 mg/dL (1.6-2.3); Potassium 4.1 mmol/L (3.4-5.0); Sodium 140 mmol/L (137-145); Total Protein 7.7 g/dL (6.3-8.2); Triglycerides 144 mg/dL (<150)
[2024-11-26 18:51] LABS: LDL Cholesterol Direct 64 mg/dL
[2024-11-26 19:34] LABS: Hemoglobin A1C. 5.3 % (<5.7)
== END 2024-11-26 11:07 | disposition home or self-care (01) ==
LOC: ANHBWCLAB 11:08
PROVIDERS: PCP Nurse Practitioner Adult Health; Visit Provider Nurse Practitioner Adult Health
DX: M79.672 Pain in left foot (principal); R73.03 Prediabetes; I10 Essential (primary) hypertension; M19.071 Primary osteoarthritis, right ankle and foot
CPT/HCPCS: 36415; 73630; 80053; 80061; 83036; 83735

== ENCOUNTER 2025-03-31 10:12 | Outpatient (CLI) | payer MEDICARE, OTHER, SELFPAY ==
--- OUTSIDE RECORDS SUMMARY | 2009-11-21 09:45 | XMS_ITS | Continuity of Care Document ---
Author Organization [facility] Address [address] [place] [address] Phone Care Team Providers Care Interior Designer Name Role Phone Paulino Quezada Unavailable Unavailable Procedures Procedure Date Eye Exam & Treatment Refraction Eye Exam & Treatment No Script Refraction Eye Exam & Treatment Advance Directives Directive Yes / No Effective Date File Name No Information Encounters Encounter Description Practice Location Reason(s) For Visit Diagnoses Date Provider Providers Copied on Encounter formerly [facility], [address] [place] [address] [address], [place], [place], [id number], tel:[phone] [facility] No Information 1-[address] , [address], [place], [place], [facility], . tel:[phone] formerly [facility], [address] [place] [address] [address], [place], [place], [id number], [place] tel:[phone] [facility] No Information [address], [place], [place], [facility], . tel:[phone] formerly [facility], [address] [place] [address] [address], [place], [place], [id number], tel:[phone] [facility] No Information 2-200 8 Doipatricia Bob. [address] , [address], [place], [address], [place]. tel:[phone] Family History Family Member Type Diagnosis Age At Onset No Information Payers Payer name Insurance type Covered constitution party ID Authorrenaya mirzavera(s) [place] [id number] [employer] Benefit Plan CI [id number] Social History Type Description Quantity Date Captured Comments Sex Female Smoking Status No Information Chief Complaint And Reason For Visit No Information Reason For Referral Reason For Referral No Information History Of Present Illness Encounter Date Complaint History Of Prese nt Illness No Information Functional Status Date Functional Assessmen t No Information Instructions Date Instruction Additional Infor mation No Information Assessments Type Assessment Date No Information Patient Care Teams Name Effective Dates (start - stop) Status Members No Information
--- OUTSIDE RECORDS SUMMARY | 2025-03-13 19:00 | XMS_ITS | Continuity of Care Document ---
Author Organization [facility] Address [address] [place] [address] Phone Care Team Providers Care Department Administrator Name Role Phone No Information Unavailable Unavailable Allergies, Adverse Reactions, Alerts Substance Reaction Status Criticality levofloxacin Nausea(moderate)Syncope(moderate) Active No Information adhesive tape Active No Information Medications Medication Instructions Dosage Effective Dates (start - stop) Status Comments levothyroxine 100 mcg tablet - Active Eliquis 5 mg tablet TAKE 1 TABLET BY MOUTH TWICE A DAY - Active Zepbound 5 mg/0.5 mL subcutaneous pen injector INJECT 5 MG SUBCUTANEOUSLY WEEKLY *PA DENIED* - Active tramadol 50 mg tablet - Acti ve lisinopril 20 mg tablet - Ac tive hydrochlorothiazide 25 mg tablet TAKE 1 TABLET BY MOUTH EVERY DAY - Active rosuvastatin 5 mg tablet TAKE 1 TABLET B Y MOUTH EVERYDAY AT BEDTIME - Active lisinopril 40 mg tablet - Ac tive pantoprazole 40 mg tablet,delayed release - Active calcitriol 0.25 mcg capsule - Active Procedures Procedure Date ILR DEVICE INTERROGAT REMOTE REM MNTR PHYSIOL GABE DEV REM PHYSIOL MNTR 20 MIN MO ILR DEVICE INTERROGAT REMOTE Non Billable OFFICE/OUTPATIENT VISIT, EST ILR DEVICE INTERROGAT REMOTE ILR DEVICE INTERROGAT REMOTE Advance Directives Directive Yes / No Effective Date File Name No Information Encounters Encounter Description Practice Location Reason(s) For Visit Diagnoses Date Provider Providers Copied on Encounter [facility], [address] [place] [address], [id number] [place] [address] tel: [phone] No Information 5 No Information [facility], [address] [place] [address], [id number] , tel: [phone] [facility] Bradycardia, unspecifiedSyncope and collapsePresence of other cardiac implants and grafts 5 Darren Lind. [address] [place] [address], [id number], . tel:[phone] Referring Provider: Diogo Banks, [facility] [place], [address] . tel:[phone] REM MNTR PHYSIOL GABE DEV [facility], [address] [place] [address], [id number] , tel: [phone] [facility] Essential (primary) hypertensionPresen ce of other cardiac implants and grafts 5 Darren Lind. [address] [place], [place] [address], [id number], . tel:[phone] Referring Provider: Diogo Banks [facility] [place], [address] . tel:[phone] sulting Provider: Diogo Banks [facility] [place], [address] . tel:[phone] [facility] , [address] [place] [address], [id number] , tel:[phone] [facility] Essential (primary) hypertensionBradyc ardia, unspecifiedAthscl heart disease of [place] coronary artery w/o ang pctrsChest pain, unspecifiedSyncope and collapsePresence of other cardiac implants and grafts 5 Darren Lind. [address], [place], [place], [id number], . [phone] Referring Provider: Diogo Banks, [address], [place], [address] . tel:[phone] [facility], [address] [place] [address], [id number] , tel: [phone] Psychiatric No Information 5 Darren Lind. [address], [place], [place], [id number], . tel:[phone] Referring Provider: Diogo Banks, [address], [place], [address] . tel:[phone] OFFICE/OUTPA TIENT VISIT, [facility] , [address] [place] [address], [id number] , [facility]: [phone] [facility] (chief complaint) Hypotension, unspecifiedSyncope and collapseEssential (primary) hypertensionBradyc ardia, unspecifiedAtheros clerotic heart disease of [place] coronary artery without angina pectoris 5 Ramcharlee Lind. [address] [place] [place], [place], [id number], . tel:[phone] Referring Provider: Diogo Banks, [address], [place], [address] . tel:[phone] [facility], [address] [place] [address], [id number] , tel: [phone] [facility] [place] Essential (primary) hypertensionBradyc ardia, unspecifiedAthscl heart disease of [place] coronary artery w/o ang pctrsChest pain, unspecifiedSyncope and collapsePresence of other cardiac implants and grafts 5 Ramcharlee Lind. [address] [place], [place], [id number], . tel:[phone] [facility], [address] [place] [address], [id number] , tel: [phone] [facility] [place] Essential (primary) hypertensionBradyc ardia, unspecifiedAthscl heart disease of [place] coronary artery w/o ang pctrsChest pain, unspecifiedSyncope and collapsePresence of other cardiac implants and grafts 5 [place] [address] Diogo. [address] [place] [address], [id number], . tel:[phone] [facility] , [address] [place] [address], [id number] , tel: [phone] [facility] [place] No Information 5 Ramadan Diogo. [address] [place], [place] [address], [place], [id number], . tel:[phone] Family History Family Member Type Diagnosis Age At Onset Mother Problem (finding) Heart disease and vascu lar problems Father Problem (finding) Cancer Payers Payer name Insurance type Covered green party ID Authorrenaya tivera(s) [place] [id number] 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 CI [id number] Social History Type Description Quantity Date Captured Comments Sex Female Smoking Status No Information Chief Complaint And Reason For Visit No Information Reason For Referral Reason For Referral No Information Plan Of Treatment Date Type Action Status Appointment Gunajn Diaz BOOKED Appointment Gunjan Diaz [facility] Needs R s BOOKED Future Order: Radiology Order RP M ([id number]), Ordered on: Ordered History Of Present Illness Encounter Date Complaint History Of Prese nt Illness Follow Up of 6 mo Functional Status Date Functional Assessmen t No Information Instructions Date Instruction Additional Infor mation No Information Assessments Type Assessment Date No Information Patient Care Teams Name Effective Dates (start - stop) Status Members No Information
--- OUTSIDE RECORDS SUMMARY | 2025-03-31 11:37 | XMS_ITS | Clinical Summary ---
Author Organization [facility] Address [address] [place] [address] Care Team Providers Care Typer Name Role Phone Ninfa Roy NP Primary Care Provider [phone] Allergies Active Allergy Reactions Criticality Noted Date [...] (12/27/2022): Added automatically from request for surgery [id number] Resolved Problems Problem Noted Date Diagnosed Date Resolved Date SI (sacroiliac) joint dysfunction 06/25/2023 09/24/2023 Sacroiliitis 04/02/2023 09/24/2023 Overview (04/02/2023): Added automatically from request for surgery [id number] Family History Medical History Relation Comments Heart Disease Brother Cancer Father Heart Disease Mother Stroke Mother Heart Disease Sister Stroke Sister Relation Status Comments Brother Father Mother Sister Alive Social History Tobacco Use Types Packs/Day Years Used Date Smoking Tobacco: Former Cigarettes 0.5 15 1 977 - 1992 Tobacco Cessation:Counseling Given: Not Answered Alcohol Use Standard Drinks/Week Comments Yes 0 (1 standard drink = 0.6 oz pur e alcohol) socially PHQ-2 Answer Date Recorded Patient Health Questionnaire-2 Score 0 07/13/2022 Comments No Sex and Gender Information Value Date Recorded Sex Assigned at Female 06/29/2024 11:56 AM GERIATRIC NURSE PRACTITIONER Legal Sex Female 8:24 AM GERIATRIC NURSE PRACTITIONER Gender Identity Not on file Sexual Orientation Not on file Last Filed Vital Signs Vital Sign Reading Time Taken Comments Blood Pressure 155/81 06/29/2024 1:21 PM GERIATRIC NURSE PRACTITIONER Pulse 57 06/29/2024 1:21 PM GERIATRIC NURSE PRACTITIONER Temperature 36.7 C (98.1 F) 06/29/2024 12:36 PM GERIATRIC NURSE PRACTITIONER Respiratory Rate 18 06/29/2024 1:21 PM GERIATRIC NURSE PRACTITIONER Oxygen Saturation 97% 06/29/2024 1:21 PM GERIATRIC NURSE PRACTITIONER Inhaled Oxygen Concentration - - Weight 108.9 kg (240 lb) 06/29/2024 12:36 PM GERIATRIC NURSE PRACTITIONER Height 152.4 cm (5') 06/29/2024 12:36 PM GERIATRIC NURSE PRACTITIONER Body Mass Index 46.87 06/29/2024 12:36 PM GERIATRIC NURSE PRACTITIONER Plan of Treatment Health Maintenance Due Date Last Done Comments Annual Medicare Wellness Visit 2007 Dexa Scan (General) 2007 Zoster Vaccines (2 of 3) 07/29/2008 06/03/2008 RSV Immunization or 60+ Years (1 - 1-dose 75+ series) 2017 PHQ-2 (Physician [place]) 06/03/2024 COVID-19 Vaccine ( season) 2025 04/03/2021, 08/02/2020, 07/13/2020, Additional history exists Influenza Adult (#1) 2025 05/01/2023, 03/21/2022, 03/15/2021, Additional history exists DTaP, Tdap and Td Vaccines (2 - Td or Tdap) 08/07/2026 08/07/2016 Pneumococcal Vaccine: 50+ Years Completed 05/19/2015, 05/17/2015, 01/01/2011, Additional history exists Hepatitis A Vaccines Aged Out No long er eligible based on patient's age to complete this topic Meningococcal B Vaccine Aged Out No l onger eligible based on patient's age to complete this topic Meningococcal Vaccine Aged Out No sheri farhad eligible based on patient's age to complete this topic RSV Immunizations Under 20 Months Aged Out No longer eligible based on patient's age to complete this topic Insurance MEDICARE [facility] Care Teams Typer Relationship Specialty Start Date End Date Ninfa Roy NP [address] [place] [phone] PCP - General NURSE PRACTITIONER 12/27/22
--- OUTSIDE RECORDS SUMMARY | 2025-03-31 11:37 | XMS_ITS | Clinical Summary ---
Author Organization [facility] Address [address] [place] [address] Care Team Providers Care Olive Grower Name Role Phone Ewa Valencia Unavailable [phone] Brain Angeles MD Unavailable Jarett Iraheta MD Unavailable Taty Mccullough NP Primary Care Provider [phone] Allergies Active Allergy Reactions Criticality Noted Date Comments Adhesive Tape-Silicones Levofloxacin Anaphylaxis High 07/19/2022 Medications traMADoL (ULTRAM) 50 mg tablet Take 1 tablet (50 mg total) by mouth every 8 (eight) hours as needed for pain [address] (PROTONIX) 40 mg EC tablet Take 1 tablet (40 mg total) by mouth nightly 1900 2 Active lisinopriL (PRINIVIL,ZESTR IL) 20 mg tablet Take 2 tablets (40 mg total) by mouth daily 3 Active levothyroxine (SYNTHROID) 75 mcg tablet Take 1 tablet (75 mcg total) 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 3 Active apixaban (ELIQUIS) 5 mg tabletIndicatio ns:thrombophili a Take 1 tablet (5 mg total) by mouth 2 (two) times a day 60 tablet 11 4 Active tirzepatide, weight loss, (Zepbound) 2.5 mg/0.5 mL pen injector Inject under the skin Active Active Problems Problem Noted Date Diagnosed Date Bilateral primary osteoarthritis of knee 025 Assessment & Plan (02/15/2025 10:41 AM CDT): Syncope, unspecified syncope type 08/26/2022 DVT (deep venous thrombosis) 08/26/2022 Primary hypertension 08/26/2022 Acquired hypothyroidism 08/26/2022 Gastroesophageal reflux disease without esophagi tis 08/26/2022 Dyslipidemia 08/26/2022 Pulmonary embolism, bilateral 07/19/2022 Encounters Date Type Department Care Team Description 02/19/2025 Telephone [facility] Medicine Physicians [facility] Oncology [address] [place] [address] Medical Office [address] [place] [address] Hanna Wilson RN 02/15/2025 9:30 AM CDT Office Visit [facility] Sports Medicine and Primary Care at [address] [place] [address] Abdulaziz Busch DO Bilateral primary osteoarthritis of knee (Primary Dx) 02/10/2025 2:30 PM CDT Office Visit [facility] Medicine Physicians [facility] Oncology [address] [place] [address] Medical Office [address] [place] [address] Brain Angeles MD Pulmonary embolism, bilateral (HCC) (Primary Dx) 02/10/2025 2:00 PM CDT Lab [address] [place] [address] Pulmonary embolism, bilateral (HCC) from Last 3 [...] Comments Arthritis Coronary artery disease Pulmonary embolism Pulmonary embolism Pulmonary embolism, bilateral (HCC) Pulmonary embolism Pulmonary embolism, bilateral (HCC) Pulmonary embolism Social History Tobacco Use Types Packs/Day Years Used Date Smoking Tobacco: Never Tobacco Cessation:Counseling Given: Not Answered Alcohol Use Standard Drinks/Week Comments Not Currently 0 (1 standard drink = 0.6 oz pur e alcohol) AUDIT-C Answer Date Recorded Q1: How often do you have a drink containing alcohol? Never 02/15/2025 Q2: How many drinks containi ng alcohol do you have on a typical day when you are drinking? Patient does not drink Q3: How often do you have si x or more drinks on one occasion? Never 02/15/2025 Personal Safety Answer Date Recorded Have you ever been in or are you currently in a harmful physical or emotional relationship or is someone making you feel afraid or unsafe? Denies 08/26/2022 Comments No Sex and Gender Information Value Date Recorded Sex Assigned at Not on file Legal Sex Female 9:31 AM ROVING WINDER Gender Identity Not on file Sexual Orientation Not on file Obstetrics History Last Filed Vital Signs Vital Sign Reading Time Taken Comments Blood Pressure 126/71 02/15/2025 9:30 AM CDT Pulse 70 02/15/2025 9:30 AM CDT Temperature 36.3 C (97.4 F) 02/10/2025 1:53 PM CDT Respiratory Rate 20 02/10/2025 1:53 PM CDT Oxygen Saturation 97% 02/10/2025 1:53 PM CDT Inhaled Oxygen Concentration - - Weight 87.4 kg (192 lb 11.2 oz) 02/15/2025 9:30 AM CDT Height 157.5 cm (5' 2) 02/15/2025 9:30 AM CDT Body Mass Index 35.25 02/15/2025 9:30 AM CDT Plan of Treatment Health Maintenance Due Date Last Done Comments Depression Screening 1940 Hepatitis B Screening 02/12/1960 Well Visit 65+ 2007 Zoster Vaccine (2 of 3) 07/29/2008 06/03/2008 Fall Risk Assessment 07/22/2023 07/22/2022 Osteoporosis Screening-Bone Density Scan 08/14/2024 08/14/2022 Covid-19 Vaccine (2024- 6 season) 2025 04/30/2022, 09/07/2021, 04/03/2021, Additional history exists Influenza Vaccine (#1) 2025 , 05/01/2023, 04/22/2023, Additional history exists DTaP/Tdap/Td Vaccine (2 - Td or Tdap) 08/07/2026 08/07/2016 Pneumococcal vaccine 65+ Completed 019, 05/19/2015, 05/17/2015, Additional history exists Medical Devices Implanted Type Area Assembly Line Leader Device Identifier Shelf Expiration Date Model / Serial / Lot [employer] Reveal Linq Ii Implantable Faculty Physician Lnq22 - [id number] - [id number] Implanted:Qty: 1 on 08/27/2022 by Jarett Iraheta MD at [facility] [employer] [id number] 12/07/2023 [id number] / [id number] / Procedures Procedure Name Priority Date/Time Associated Diagnosis Comments EGFR Routine 02/10/2025 1:35 PM CDT Pulmonary embolism, bilateral (HCC) DIFFERENTIAL AUTO Routine 02/10/2025 1:3 5 PM CDT Pulmonary embolism, bilateral (HCC) CBC WITH AUTO DIFFERENTIAL Routine 02/10/2025 1:35 PM CDT Pulmonary embolism, bilateral (HCC) COMPREHENSIVE METABOLIC PANEL Routine 02/10/2025 1:35 PM CDT Pulmonary embolism, bilateral (HCC) from Last 3 Months Results * (ABNORMAL) eGFR (02/10/2025 1:35 PM CDT) eGFR 29(L) >=60 mL/min/1. 73 m2 Comment: Interpretive Data [...] was last reviewed 2021. Testing performed by: [facility], [facility], [place], [address] Blood 02/10/2025 1:35 PM CDT 02/10/2025 2:25 PM CDT us Mattie Allen FUEL TECHNICIAN LAB BLOOD ORDERABLES Final Result JUANIS FERGUSON ([place]) 1 [facility] [place] [address] * Differential, auto (02/10/2025 1:35 PM CDT) Neutrophil abs 6.05 1.50 - 6.50 K/cumm JUANIS FERGUSON ([place]) Comment:Testing performed by : [facility] [address], Medical Office [address], [place] [address] Imm gran abs 0.02 0.00 - 0.10 K/cumm JUANIS FERGUSON ([place]) Comment:Testing performed by : [facility] [address], Medical Office [facility] [address], [place] [address] Lymphocyte abs 1.59 0.80 - 3.30 K/cumm [facility] ([place]) Comment:Testing performed by : [facility] [address], Medical Office [facility] [address], [place] [address] Monocyte abs 0.69 0.20 - 0.80 K/cumm [facility] ([place]) Comment:Testing performed by : [facility] [address], Medical Office [facility] [address], [place] [address] Eosinophil abs 0.05 0.00 - 0.50 K/cumm [facility] ([place]) Comment:Testing performed by : [facility] [address], Medical Office [facility] [address], [place] [address] Basophil abs 0.03 0.00 - 0.10 K/cumm [facility] ([place]) Comment:Testing performed by : [facility] [address], Medical Office [facility] [address], [place] [address] Neutrophil pct 71.7 % [facility] ([place]) Comment: Interpretive Data Percent cell count reference ranges are not reported, since discordance with absolute values may lead to misinterpretation of CBC data. Current Interpretive Data was last revised on 2022. Testing performed by: [facility] [address], Medical Office [facility] [address], [place] [address] Imm gran pct 0.2 % [facility] ([place]) Comment: Interpretive Data Percent cell count reference ranges are not reported, since discordance with absolute values may lead to misinterpretation of CBC data. Current Interpretive Data was last revised on 2022. Testing performed by: [facility] [address], Medical Office [facility] [address], [place] [address] Lymphocyte pct 18.9 % [facility] ([place]) Comment: Interpretive Data Percent cell count reference ranges are not reported, since discordance with absolute values may lead to misinterpretation of CBC data. Current Interpretive Data was last revised on 2022. Testing performed by: [facility] [address], Medical Office [facility] [address], [place] [address] Monocyte pct 8.2 % [facility] ([place]) Comment: Interpretive Data Percent cell count reference ranges are not reported, since discordance with absolute values may lead to misinterpretation of CBC data. Current Interpretive Data was last revised on 2022. Testing performed by: [facility] [address], Medical Office [facility] [address], [place] [address] Eosinophil pct 0.6 % VIPUL FERGUSON ([place]) Comment: Interpretive Data Percent cell count reference ranges are not reported, since discordance with absolute values may lead to misinterpretation of CBC data. Current Interpretive Data was last revised on 2022. Testing performed by: [facility] [address], Medical Office [facility] [address], [place] [address] Basophil pct 0.4 % JUANIS FERGUSON ([place]) Comment: Interpretive Data Percent cell count reference ranges are not reported, since discordance with absolute values may lead to misinterpretation of CBC data. Current Interpretive Data was last revised on 2022. Testing performed by: [facility] [address], Medical Office [facility] [address], [place] [address] Blood 02/10/2025 1:35 PM CDT 02/10/2025 1:37 PM CDT Mattie Allen FUEL TECHNICIAN LAB BLOOD ORDERABLES Final Result JUANIS FERGUSON ([place]) 1 [facility] Department [place] [address] * (ABNORMAL) CBC with auto differential (02/10/2025 1:35 PM CDT) WBC 8.43 3.80 - 9.90 K/cumm JUANIS FERGUSON ([place]) Comment:Testing performed by : [facility] [address], Medical Office [facility] [address], [place] [address] Hgb 13.4 11.9 - 15.5 g/dL JUANIS FERGUSON ([place]) Comment:Testing performed by : [facility] [address], Medical Office [facility] [address], [place] [address] Hct 40.7 35.6 - 45.5 % [facility] ([place]) Comment:Testing performed by : [facility] [address], Medical Office [address], [place] [address] Plt 233 150 - 400 K/cumm [facility] ([place]) Comment:Testing performed by : [facility] [address], Medical Office [address], [place] [address] MPV 9.5 9.1 - 12.3 fL [facility] ([place]) Comment:Testing performed by : [facility] [address], Medical Office [facility] [address], [place] [address] RBC 4.61 3.90 - 5.20 M/cumm [facility] ([place]) Comment:Testing performed by : [facility] [address], Medical Office [address], [place] [address] MCV 88.3 81.3 - 96.4 fL [facility] ([place]) Comment:Testing performed by : [facility] [address], Medical Office [facility] [address], [place] [address] MCH 29.1 27.1 - 33.3 pg [facility] ([place]) Comment:Testing performed by : [facility] [address], Medical Office [facility] [address], [place] [address] MCHC 32.9 32.3 - 35.7 g/dL [facility] ([place]) Comment:Testing performed by : [facility] [address], Medical Office [facility] [address], [place] [address] RDW CV 15.2(H) 11.1 - 14.9 % [facility] ([place]) Comment:Testing performed by : [facility] [address], Medical Office [address], [place] [address] RDW SD 50.4(H) 35.7 - 48.1 fL [facility] ([place]) Comment:Testing performed by : [facility] [address], Medical Office [facility] [address], [place] [address] Blood 02/10/2025 1:35 PM CDT 02/10/2025 1:37 PM CDT us Mattie Allen FUEL TECHNICIAN LAB BLOOD ORDERABLES Final Result [facility] ([place]) 1 [facility] Department [place] [address] * (ABNORMAL) Comprehensive metabolic panel (02/10/2025 1:35 PM CDT) Sodium 139 135 - 145 mmol/L [facility] ([place]) Potassium, pl 3.8 3.3 - 4.9 mmol/L [facility] ([place]) Chloride 101 97 - 110 mmol/L [facility] ([place]) CO2 22 22 - 32 mmol/L [facility] ([place]) Anion gap 16(H) 2 - 15 mmol/L [facility] ([place]) BUN 39(H) 6 - 25 mg/dL [facility] ([place]) Creatinine 1.76(H) 0.60 - 1.10 mg/dL [facility] ([place]) Glucose 82 70 - 199 mg/dL [facility] ([place]) [...] Current interpretive data was last revised 2022. Calcium 9.9 8.5 - 10.3 mg/dL [facility] ([place]) Bilirubin, total 0.8 0.1 - 1.2 mg/dL [facility] ([place]) Protein, pl 6.6 6.5 - 8.5 g/dL [facility] ([place]) Albumin 4.2 3.5 - 5.0 g/dL [facility] ([place]) Alk phos 69 40 - 130 Units/L [facility] ([place]) ALT 7 7 - 45 Units/L [facility] ([place]) AST 19 10 - 45 Units/L [facility] ([place]) Blood 02/10/2025 1:35 PM CDT 02/10/2025 2:25 PM CDT Mattie Allen FUEL TECHNICIAN LAB BLOOD ORDERABLES Final Result JAUNIS FERGUSON ([place]) 1 [facility] [place] [address] from Last 3 Months Insurance MEDICARE [employer]IL [employer]ERS MEDICARE [facility] HAND[employer]ERS [facility] Advance Directives For more information, please contact: [phone] * Full Code (Latest Code Status on File) Date Activated Date Inactivated Comments 08/26/2022 2:56 PM 08/27/2022 9:22 PM * Full Code Date Activated Date Inactivated Comments 08/26/2022 2:01 PM 08/26/2022 2:56 PM Care Teams Olive Grower Relationship Specialty Start Date End Date Taty Mccullough NP [facility] [place] [address] PCP - General Nurse Practitioner 02/03/25 Ewa Valencia PA [address] [place] [address] Medical Oncology 07/22/22 Brain Angeles MD [address] [place] [address] Medical Oncologist/Hematologis t Hematology and Oncology 08/22/22 Jarett Iraheta MD [address] [place] [address] Referring Physician Cardiovascular Disease 08/27/22
--- OUTSIDE RECORDS SUMMARY | 2025-03-31 11:37 | XMS_ITS | Encounter Summary ---
Author Organization [facility] Address [address] [place] [address] Care Team Providers Care Collar Sewer Name Role Phone Corimartinez Ninfa WONG Primary Care Provider [phone] Reason for Referral * Surgical (Routine) - Closed Specialty Diagnoses / Procedures Referred By Contac t Referred To Contact Diagnoses Lumbar facet arthropathy Procedures Case request operating room: BLOCK MEDIAL BRANCH LUMBAR [id number] Steffany Lerma MD Three [facility] [address] [place] [address] Phone: tel: fax: Referral ID Status Reason Start Date Expiration Date Visits Re quested Visits Authorized [id number] Closed 11/25/2023 11/24/2024 1 1 Encounter Details Date Type Department Care Team (Late st Contact Info) Description 11/25/[address] [facility] [place], [place] [phone] [id number] Steffany Lerma MD Three [facility] [address] [place] [address] [phone] Social History Tobacco Use Types Packs/Day Years Used Date Smoking Tobacco: Former Cigarettes 0.5 15 1 977 - 1991 Alcohol Use Standard Drinks/Week Comments Yes 0 (1 standard drink = 0.6 oz pur e alcohol) socially PHQ-2 Answer Date Recorded Patient Health Questionnaire-2 Score 0 07/13/2022 Comments No Sex and Gender Information Value Date Recorded Sex Assigned at Female 06/29/2024 11:56 AM ASSISTANT PROFESSOR OF GERMAN Legal Sex Female 8:24 AM ASSISTANT PROFESSOR OF GERMAN Gender Identity Not on file Sexual Orientation [...] myelopathy documented in this encounter Care Teams Collar Sewer Relationship Specialty Start Date End Date Ninfa Roy NP [address] [phone] PCP - General NURSE PRACTITIONER 12/27/22 documented as of this encounter
[2025-03-31 19:04] LABS: Alanine Aminotransferase 14 U/L (6-35); Albumin Level 4.5 g/dL (3.5-5.1); Alkaline Phosphatase 85 U/L (38-126); Anion Gap 8 mmol/L (4-12); Aspartate Amino Transferase 43 U/L (14-36); Bilirubin,Total 0.8 mg/dL (0.2-1.3); Blood Urea Nitrogen 37 mg/dL (7-17); Calcium 9.9 mg/dL (8.4-10.2); Carbon Dioxide 30 mmol/L (22-30); Chloride 98 mmol/L (98-107); Cholesterol 159 mg/dL (0-200); Estimated Glomerular Filt Rate 38; Glucose 90 mg/dL (65-110); HDL Direct 55 mg/dL; Potassium 4.3 mmol/L (3.4-5.0); Sodium 136 mmol/L (137-145); Total Protein 7.2 g/dL (6.3-8.2); Triglycerides 92 mg/dL (<150)
[2025-03-31 19:41] LABS: Thyroid Stimulating Hormone 2.670 uIU/mL (0.465-4.680)
== END 2025-03-31 10:13 | disposition home or self-care (01) ==
LOC: ANHBWCLAB 10:21
PROVIDERS: PCP Nurse Practitioner Adult Health; Visit Provider Nurse Practitioner Adult Health
DX: E78.5 Hyperlipidemia, unspecified (principal); E55.9 Vitamin D deficiency, unspecified; E07.9 Disorder of thyroid, unspecified
CPT/HCPCS: 36415; 80053; 80061; 82306; 84443